=== PATIENT | male | born 1965 | race Caucasian/White ===

== ENCOUNTER 2019-02-24 11:11 | Inpatient (IN) ==
[2019-02-24] MEDS ORDERED: ACETAMINOPHEN 1,000 MG/100 ML VIAL IV STA (12:58)
[2019-02-24] MEDS ORDERED: SODIUM CHLORIDE 0.9% 1000ML 1,000 ML IV ONE (12:58)
[2019-02-24 14:01] LABS: Appearance Urine Turbid (Clear); Bacteria Urine Automated 3+ (Negative); Bilirubin Urine Negative (Negative); Blood Urine 3+ (Negative); Color Urine Yellow; Glucose Urine UA Negative (Negative); Ketones Urine Negative (Negative); Leukocyte Esterase Urine 2+ (Negative); Nitrite Urine Positive (Negative); Protein Urine 3+ (Negative); Urobilinogen Urine Negative (Negative); WBC Urine Automated >30 /hpf (0-5); pH Urine 5.5 (4.5-7.5)
[2019-02-24 14:10] LABS: Basophils # (auto) 0.03 K/uL (0-0.2); Basophils % (auto) 0.3 %; Eosinophils % (auto) 1.7 %; Hematocrit (blood only) 40.7 % (42-52); Hemoglobin 13.9 g/dL (14.0-18.0); Immature Granulocytes # (auto) 0.02 K/uL (0.00-0.02); Immature Granulocytes % (auto) 0.2 %; Lymphocytes # (auto) 0.81 K/uL (1.2-3.4); Lymphocytes % (auto) 6.9 %; Mean Corpuscular Hemoglobin 30.6 pg (25-34); Mean Corpuscular Hgb Conc 34.2 g/dL (32-36); Mean Corpuscular Volume 89.6 fL (80-100); Mean Platelet Volume 10.4 fL (7.4-10.4); Monocytes # (auto) 0.91 K/uL (0.11-0.59); Monocytes % (auto) 7.7 %; Neutrophils # (auto) 9.82 K/uL (1.4-6.5); Neutrophils % (auto) 83.2 %; Platelet Count 187 K/uL (130-400); RDW Coefficient of Variation 13.3 % (11.5-14.5); RDW Standard Deviation 42.9 fL (36.4-46.3); Red Blood Count 4.54 M/uL (4.7-6.1); White Blood Count 11.79 K/uL (4.8-10.8)
[2019-02-24 14:21] LABS: Partial Thromboplastin Ratio 1.1; Partial Thromboplastin Time 29.2 Seconds (21.0-31.0); Prothrombin Time 10.6 Seconds (9.0-12.0)
--- NOTE | 2019-02-24 14:24 | XRay Report ---
XR chest 1V portable CLINICAL HISTORY: Sepsis COMPARISON STUDY: No previous studies for comparison. FINDINGS: The cardiac and mediastinal contours are normal. There is no evidence of focal pulmonary co nsolidation. There is no evidence of failure. No pleural effusions are visualized.[ IMPRESSION: No active disease in the chest. Electronically signed by: Robert Nichols M.D. 02/24/2019 2:23 PM
[2019-02-24 14:25] LABS: Alanine Aminotransferase 15 U/L (12-78); Albumin Level 3.5 gm/dl (3.4-5.0); Aspartate Aminotransferase 10 U/L (15-37); BUN Creatinine Ratio 10.4 (10-20); Blood Urea Nitrogen 17 mg/dl (7-18); Carbon Dioxide 25 mmol/L (21-32); Chloride 103 mmol/L (98-107); Est GFR (African American) 55.8; Est GFR (Non-African American) 48.2; Glucose 100 mg/dl (70-99); Magnesium 1.9 mg/dl (1.8-2.4); Potassium 4.1 mmol/L (3.5-5.1); Sodium 136 mmol/L (136-145)
[2019-02-24 14:28] LABS: Albumin Globulin Ratio 0.9 (0.9-2); Alkaline Phosphatase 58 U/L (45-117); Bilirubin,Total 0.6 mg/dl (0.2-1); Globulin 3.9 gm/dl (2.5-4.0); Phosphorus 2.5 mg/dl (2.5-4.9); Total Protein 7.4 gm/dl (6.4-8.2)
[2019-02-24] MEDS ORDERED: VANCOMYCIN HCL 1,750 MG in SODIUM CHLORIDE 0.9% 500 ML IV ONE (14:40)
[2019-02-24] MEDS ORDERED: VANCOMYCIN CONSULT ACTIVE PRN (14:40)
[2019-02-24] MEDS ORDERED: CEFEPIME 2,000 MG/20 ML VIAL IV STA (14:43)
[2019-02-24] MEDS ORDERED: IOVERSOL 100ml IV PRN (15:01)
--- NOTE | 2019-02-24 15:16 | History & Physical Report ---
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 Yesterday took temperature and was 100.8F. In ER T: 38.3C, P: 106, R: 20, BP: 132/89, 99% on RA. WBC: 11.7, H/H: 13.9/40.7, BUN: 17, Cr: 1.59 (baseline Cr: 1.4-1.7), GFR: 48.2, Lactate: 1.4, UA: positive nitrite, 2+leuk esterase, >30WBC, 10-30 RBC, 3+bacteria Influenza swab negative CXR: No active disease in the chest. CT ABD/PELVIS: 1. Right nephroureterostomy tube in place. No right hydronephrosis. 2. Right urothelial thickening may be reactive to the presence of the stent. Correlate with urinalysis to ensure the absence of infection as the presence of perivesicular fat stranding raises concern for cystitis with upper tract involvement of infection. 3. Polypoid bladder wall thickening highly concerning for primary urothelial/bladder neoplasm. This does not appear to relate to median lobe hypertrophy of the prostate. 4. Multifocal sclerotic osseous lesions in the right hemipelvis are highly suspicious for osseous metastatic disease. 5. No lymphadenopathy or other sites of metastatic disease in abdomen or pelvis. 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 Pt states 4 days ago started feeling febrile with myalgias, chills, fatigue. Yesterday took temperature and was 100.8F. He states after procedure he had hematuria and dysuria passing urine through urethra. Hematuria slowed down and he started using nephroureteral catheter and since has passed intermittent urine through urethra and has dysuria and hematuria. Also reports right flank pain when urinates through urethra. Saw urology- Dr Kunz today and urine culture was obtained from nephroureteral stent. Pt was referred to ER for further evaluation and treatment. Pt also reports chronic nasal congestion however feels increased over past 4 days. Sli ght intermittent cough that is productive white. Denies SOB, CP, wheezing. Did not have flu vaccine this season. Reports co-worker had URI symptoms. Pt states since procedure on 02/07/19 he has had approx 8 episodes of loose stools. Had one loose stool yesterday and no BM yet today. Denies other abdominal pain, nausea or vomiting. Denies hematochezia, melena, BARTH, dizziness, syncope, vision changes, neck pain, CP, SOB, orthopnea, palpitations, sore throat, choking, otalgia, paresthesias, weakness, extremity weakness, extremity edema, rashes. Allergies Allergy/AdvReac Type Severity Reaction Status Date / Time sulfamethoxazole Allergy Intermediate Hives Unverified 02/24/19 12:04 [From Bactrim] trimethoprim [From Bactrim] Allergy Intermediate Hives Unverified 02/24/19 12:04 Penicillins AdvReac Severe passes out Unverified 02/24/19 12:04 Home Medications Home Medications Medication Instructions Recorded Confirmed Type albuterol sulfate 2 puff INHALATION QID PRN 02/24/19 02/24/19 History calcium carbonate-vitamin D3 1 tab PO QAM 02/24/19 02/24/19 History [Caltrate 600 plus D] denosumab [Xgeva] 120 mg SUBCUT Q3M 02/24/19 02/24/19 History ferrous gluconate 324 mg PO QAM 02/24/19 02/24/19 History fluticasone furoate-vilanterol 1 inh INHALATION DAILY 02/24/19 02/24/19 History [Breo Ellipta] leuprolide (3 month) [Lupron Depot 30 mg IM Q3M 02/24/19 02/24/19 History (3 month)] naproxen sodium [Aleve] 220 mg PO Q12H PRN 02/24/19 02/24/19 History tamsulosin 0.4 mg PO BID 02/24/19 02/24/19 History verapamil 180 mg PO HS 02/24/19 02/24/19 History Past Med/Surg History Medical History Asthma (Chronic) Chronic hepatitis C (Chronic) Dyslipidemia (Chronic) HTN (hypertension) (Chronic) 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 Portal hypertension (Chronic) Prostate cancer metastatic to bone (Chronic) Surgical History History of carpal tunnel surgery (Chronic) History of colonoscopy (Chronic) History of urostomy (Chronic) Family History Other Cancer Diabetes Social History Preferred Language: Khmer Communication Ability: Effective Communications Department Head Required: No Beliefs That Will Affect Care: None marital status: Single Current Living Situation: Alone Other Information That Helps Us Care for You: No Feels Safe at Home: Yes Safety Concerns: Feels Safe At This Time Smoking Status: Former smoker Hx Alcohol Use: Yes (Former alcoholic. Sober since 2008) Hx Substance Use: Yes (Former use cocaine, LSD, crystal meth. Clean since 1995) Review of Systems Review of Systems: All systems reviewed & are unremarkable except as noted in HPI & below Physical Exam Physical Exam: General: no acute distress, WDWN, non-toxic appearing at this time Head: normocephalic, atraumatic Eyes: PERRL, EOM's intact, conjunctiva non-injected, anicteric ENT: normal inspection external ears, nose, mucous membranes moist Neck: supple, trachea midline Lungs: clear, no respiratory distress, no wheezing/rhonchi/rales CV: RRR, no murmur, no pretibial edema Abd: normal BS, soft, Right CVA with nephroureteral tube draining yellow urine into bag; no CVA tenderness to percussion, right lower abdomen mild tenderness to palpation without rebound Ext: no cyanosis, no calf tenderness Neuro: A&O x 3, no focal deficits noted, normal affect Skin: warm, dry Results & Data Vital Signs (Past 12 Hours) Vital Signs Temp Pulse Pulse Resp BP BP Pulse Ox 02/24/19 14:00 86 23 119/79 94 02/24/19 13:59 85 24 130/71 93 02/24/19 13:30 92 H 17 156/83 H 97 02/24/19 13:26 84 23 146/79 H 02/24/19 13:15 91 H 22 98 02/24/19 13:00 80 20 96 02/24/19 12:58 96 02/24/19 12:45 82 16 141/88 H 95 02/24/19 12:30 84 21 151/89 H 97 02/24/19 12:15 82 21 147/111 H 97 02/24/19 12:05 37.8 C H 85 19 135/78 97 02/24/19 11:17 38.3 C H 106 H 20 132/89 99 Laboratory Results Short CBC 02/24/19 Range/Units 13:52 WBC 11.79 H (4.8-10.8) K/uL Hgb 13.9 L (14.0-18.0) g/dL Hct 40.7 L (42-52) % Plt Count 187 (130-400) K/uL BMP 02/24/19 13:52 Sodium 136 Potassium 4.1 Chloride 103 Carbon Dioxide 25 BUN 17 Creatinine 1.59 H Glucose 100 H Calcium 9.0 Liver Function 02/24/19 Range/Units 13:52 Total Bilirubin 0.6 (0.2-1) mg/dl AST 10 L (15-37) U/L ALT 15 (12-78) U/L Alkaline Phosphatase 58 (45-117) U/L Albumin 3.5 (3.4-5.0) gm/dl Urine 02/24/19 Range/Units 12:46 Urine Color Yellow Urine Appearance Turbid A (Clear) Urine pH 5.5 (4.5-7.5) Ur Specific [place] 1.020 (1.000-1.030) Urine Protein 3+ H (Negative) Urine Glucose (UA) Negative (Negative) Diagnostic Findings CXR: IMPRESSION: No active disease in the chest. CT ABD/PELVIS: IMPRESSION: 1. Right nephroureterostomy tube in place. No right hydronephrosis. 2. Right urothelial thickening may be reactive to the presence of the stent. Co rrelate with urinalysis to ensure the absence of infection as the presence of perivesicular fat stranding raises concern for cystitis with upper tract involvement of infection. 3. Polypoid bladder wall thickening highly concerning for primary urothelial/bladder neoplasm. This does not appear to relate to median lobe hypertrophy of the prostate. 4. Multifocal sclerotic osseous lesions in the right hemipelvis are highly suspicious for osseous metastatic disease. 5. No lymphadenopathy or other sites of metastatic disease in abdomen or pelvis. ECG Rate (beats per minute): 76 Rhythm: normal sinus Supervising Physician Co-Signing Physician Notes Attending Addendum: delayed entry date of service as note above care coordinated with NELLA Russell please refer to her notes for full details, I agree with her notes patient seen and examined, records reviewed by myself as well on exam, patient seen resting in bed, not in distress main symptom is fever, weakness nephrostomy output increased than usual no other symptoms VS noted and reviewed oriented x3 , not in distress, speaks in sentences with no effort nor accessory muscle use normal rate, regular rhythm, no murmurs clear breath sounds bilaterally non distended, soft, nontender nephrostomy site: no surrounding erythema, tenderness, warmth, discharge no bipedal edema, erythema, warmth no neuro deficits WBC 9.2 Hg [address] abdomen: 1. Right nephroureterostomy tube in place. No right hydronephrosis. 2. Right urothelial thickening may be reactive to the presence of the stent. Correlate with urinalysis to ensure the absence of infection as the presence of perivesicular fat stranding raises concern for cystitis with upper tract involvement of infection. 3. Polypoid bladder wall thickening highly concerning for primary urothelial/bladder neoplasm. This does not appear to relate to median lobe hypertrophy of the prostate. 4. Multifocal sclerotic osseous lesions in the right hemipelvis are highly suspicious for osseous metastatic disease. 5. No lymphadenopathy or other sites of metastatic disease in abdomen or pelvis. ASSESSMENT AND PLAN SEPSIS SECONDARY TO UTI METASTATIC PROSTATE CA S/P nephroureteral catheter placement - sepsis protocol - ff up urine culture from outpatient clinic 02/24/19, repeat urine culture and blood cultures done on admission day - cover with Vanco and Cefepime ID and Urology consult - baseline crea 1.7, now 1.59 monitor closely - discussed case with Dr. Kunz- Urologist HTN - continue Verapamil other diagnoses and plan of care as per NELLA Russell notes Rodolfo Michaels MD (1) UTI (urinary tract infection) Hematuria presence: with hematuria Urinary tract infection type: site unspecified Qualified Code(s): N39.0 - Urinary tract infection, site not specified; R31.9 - Hematuria, unspecified
--- NOTE | 2019-02-24 15:19 | CT Scan Report ---
CT abd pelvis IV con only CLINICAL HISTORY: 53 years-old Male presenting with abd pain, fever, prostate ca. TECHNIQUE: Multidetector CT of the abdomen and pelvis was performed after the administration of intra venous contrast. IV contrast: 93 mL of Optiray 320. One or more dose lowering techniques were used co nsistent with the principles of ALARA (as low as reasonably achievable), including automatic exposure control, mA or kV adjustment to individual patient size, and/or use of iterative reconstruction. COMPARISON: None. CT DOSE (mGy.cm): The estimated cumulative dose is 825.02 mGycm. FINDINGS: Director Of Collections topogram: Pigtail catheter projects over the right abdomen. Lung bases: Normal heart size. No pericardial or pleural effusion. Minimal dependent changes likely a telectasis. Liver: Normal morphology. No liver lesion. Patent hepatic vasculature. Biliary: No intrahepatic or extrahepatic biliary ductal dilatation. Normal gallbladder. Pancreas: Normal. Spleen: Normal. Splenule noted. Adrenal glands: Normal. Kidneys and ureters: Few renal cysts bilaterally. A nephroureterostomy tube is in place. There is mil d delayed perfusion of the right kidney. There also may be mild atrophy of the right kidney. No right hydronephrosis. Urothelial thickening on the right is likely reactive due to the presence of the wesley nt. No urothelial thickening is evident on the left there is no left hydronephrosis. Bladder: Polypoid bladder wall thickening along the posterior bladder neck. Circumferential bladder w all thickening is also present with trace. Vesicular fat infiltration. The urinary bladder is decompr essed. Pelvic organs: Prostate and seminal vesicles normal. Bowel: Normal appendix. No bowel obstruction. Peritoneal cavity: No free fluid or intraperitoneal gas. Lymph nodes: No enlarged lymph nodes in the abdomen or pelvis. Vasculature: Atherosclerosis of the normal caliber abdominal aorta. IVC patent. Abdominal wall: Bilateral fat-containing inguinal hernias. Musculoskeletal: Multifocal sclerotic osseous lesions in the right hemipelvis. No additional lesions are detected. Bilateral pars defects of L5 without significant anterolisthesis. IMPRESSION: 1. Right nephroureterostomy tube in place. No right hydronephrosis. 2. Right urothelial thickening may be reactive to the presence of the stent. Correlate with urinalys is to ensure the absence of infection as the presence of perivesicular fat stranding raises concern f or cystitis with upper tract involvement of infection. 3. Polypoid bladder wall thickening highly concerning for primary urothelial/bladder neoplasm. This does not appear to relate to median lobe hypertrophy of the prostate. 4. Multifocal sclerotic osseous lesions in the right hemipelvis are highly suspicious for osseous me tastatic disease. 5. No lymphadenopathy or other sites of metastatic disease in abdomen or pelvis. Electronically signed by: Jake Hoff M.D. 02/24/2019 3:17 PM
[2019-02-24 16:51] LABS: Influenza A virus by PCR Neg for Influ A (Neg); Influenza B virus by PCR Neg for Influ B (Neg)
[2019-02-24] MEDS ORDERED: ALBUTEROL HFA 8 GM INHALER INH PRN (18:12)
[2019-02-24] MEDS ORDERED: ONDANSETRON INJ 2 MG/ML 2 ML VIAL IV PRN (18:12)
[2019-02-24] MEDS ORDERED: CONSULT PHARMACY PRN (18:23)
[2019-02-24] MEDS ORDERED: DAPTOMYCIN CONSULT ACTIVE PRN (18:24)
[2019-02-24] MEDS: SODIUM CHLORIDE 0.9% 1000ML 1,000 ML IV SCH (18:28)
[2019-02-24] MEDS: ACETAMINOPHEN 325 MG TAB PO PRN (19:38)
[2019-02-24] MEDS: VERAPAMIL HCL 180 MG TABCR PO SCH (19:40)
[2019-02-24] MEDS: TAMSULOSIN HCL 0.4 MG CAP PO SCH (19:40)
[2019-02-24] MEDS: DAPTOmycin 300 MG in SYRINGE 0 ML IV SCH (19:43)
[2019-02-25] MEDS: CEFEPIME 2,000 MG in SYRINGE 7.5 ML IV SCH ×2 (01:37→13:41)
--- NOTE | 2019-02-25 01:57 | Emergency Department Note ---
Entered by Cesia Boyer acting as a scribe for Lauri Lee MD History of Present Illness General Chief complaint: Flank Pain Stated complaint: KINDEY INFECTION REFERRED BY DOCTOR Time Seen by Provider: 02/24/19 12:58 Source: patient History of Present Illness Onset (ago): day(s) 4 Location: right (flank) Pain Consistency: + other (worsening) Maximum Pain Intensity: 8 Quality: + other (kidney infection) Associated symptoms: + cough, + fever/chills (fever) and + other (body aches, hematuria) The patient is a 53 year old male who presents to the Emergency Room with complaints of worsening right flank pain starting 4 days ago. The patient states that he has prostate cancer. He reports that he is not currently getting chemo, but had been. He reports that over the last few days he has had a fever, right flank pain, and body aches. He notes that along with it, he had two days of hematuria, but none today. He states that he went to his urologist, Dr. Kunz, today and they sent her to the ED for concern of an infection in his kidney. The patient notes that he does have a urostomy. The patient complains of a slight cough. Home Medications Home Medications Medication Instructions Recorded Confirmed Type albuterol sulfate 2 puff INHALATION QID PRN 02/24/19 02/24/19 History calcium carbonate-vitamin D3 1 tab PO QAM 02/24/19 02/24/19 History [Caltrate 600 plus D] denosumab [Xgeva] 120 mg SUBCUT Q3M 02/24/19 02/24/19 History ferrous gluconate 324 mg PO QAM 02/24/19 02/24/19 History fluticasone furoate-vilanterol 1 inh INHALATION DAILY 02/24/19 02/24/19 History [Breo Ellipta] leuprolide (3 month) [Lupron Depot 30 mg IM Q3M 02/24/19 02/24/19 History (3 month)] naproxen sodium [Aleve] 220 mg PO Q12H PRN 02/24/19 02/24/19 History tamsulosin 0.4 mg PO BID 02/24/19 02/24/19 History verapamil 180 mg PO HS 02/24/19 02/24/19 History Allergies Allergy/AdvReac Type Severity Reaction Status Date / Time Penicillins Allergy Severe passes Verified 02/26/19 15:19 out, hives sulfamethoxazole Allergy Intermediate Hives Unverified 02/24/19 12:04 [From Bactrim] trimethoprim [From Bactrim] Allergy Intermediate Hives Unverified 02/24/19 12:04 aminophylline Allergy PASSES Verified 02/26/19 15:20 OUT, HIVES Past Med/Surg History Medical History Asthma (Chronic) Chronic hepatitis C (Chronic) Dyslipidemia (Chronic) HTN (hypertension) (Chronic) 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 Portal hypertension (Chronic) Prostate cancer metastatic to bone (Chronic) Surgical History History of carpal tunnel surgery (Chronic) History of colonoscopy (Chronic) History of urostomy (Chronic) Family History Other Cancer Diabetes Social History Preferred Language: Kyrgyz Communication Ability: Effective Cut Off Machine Operator Required: No Beliefs That Will Affect Care: None marital status: Single Current Living Situation: Alone Other Information That Helps Us Care for You: No Feels Safe at Home: Yes Safety Concerns: Feels Safe At This Time Smoking Status: Former smoker Hx Alcohol Use: Yes (Former alcoholic. Sober since 2008) Hx Substance Use: Yes (Former use cocaine, LSD, crystal meth. Clean since 1995) Review of Systems See HPI for pertinent positives & negatives. and A total of 10 systems reviewed and were otherwise negative Physical Exam Vital Signs Vital Signs - 24 hr 02/24/19 11:17 02/24/19 12:05 02/24/19 12:15 Temperature 38.3 C H 37.8 C H Temperature Source Oral Oral Sepsis Recent Fever Within 48 Hours No Sepsis Action Taken by Nursing No Action Required Pulse Rate 106 H 82 Pulse Rate [Apical] 85 Pulse Rate from SpO2 Sensor 82 Pulse Rhythm [Apical] Regular Pulse Strength [Apical] Normal Respiratory Rate 20 19 21 Respiratory Effort / Characteristics Non-Labored Non-Labored Spontaneous Respiratory Depth Normal Normal Respiratory Pattern Regular Blood Pressure 132/89 147/111 H Blood Pressure [Right Arm] 135/78 Blood Pressure Mean 103 123 Blood Pressure Mean [Right Arm] 97 Blood Pressure Position [Right Arm] Lying Pulse Oximetry 99 97 97 Oxygen Delivery Method Room Air Room Air 02/24/19 12:30 02/24/19 12:45 02/24/19 12:58 Temperature Temperature Source Sepsis Recent Fever Within 48 Hours Sepsis Action Taken by Nursing Pulse Rate 84 82 Pulse Rate [Apical] Pulse Rate from SpO2 Sensor 84 82 Pulse Rhythm [Apical] Pulse Strength [Apical] Respiratory Rate 21 16 Respiratory Effort / Characteristics Respiratory Depth Respiratory Pattern Blood Pressure 151/89 H 141/88 H Blood Pressure [Right Arm] Blood Pressure Mean 109 105 Blood Pressure Mean [Right Arm] Blood Pressure Position [Right Arm] Pulse Oximetry 97 95 96 Oxygen Delivery Method Room Air 02/24/19 13:00 02/24/19 13:15 02/24/19 13:26 Temperature Temperature Source Sepsis Recent Fever Within 48 Hours Sepsis Action Taken by Nursing Pulse Rate 80 91 H 84 Pulse Rate [Apical] Pulse Rate from SpO2 Sensor 80 87 85 Pulse Rhythm [Apical] Pulse Strength [Apical] Respiratory Rate 20 22 23 Respiratory Effort / Characteristics Respiratory Depth Respiratory Pattern Blood Pressure 146/79 H Blood Pressure [Right Arm] Blood Pressure Mean 101 Blood Pressure Mean [Right Arm] Blood Pressure Position [Right Arm] Pulse Oximetry 96 98 Oxygen Delivery Method 02/24/19 13:30 02/24/19 13:59 02/24/19 14:00 Temperature Temperature Source Sepsis Recent Fever Within 48 Hours Sepsis Action Taken by Nursing Pulse Rate 92 H 85 86 Pulse Rate [Apical] Pulse Rate from SpO2 Sensor 91 H 86 86 Pulse Rhythm [Apical] Pulse Strength [Apical] Respiratory Rate 17 24 23 Respiratory Effort / Characteristics Respiratory Depth Respiratory Pattern Blood Pressure 156/83 H 130/71 119/79 Blood Pressure [Right Arm] Blood Pressure Mean 107 90 92 Blood Pressure Mean [Right Arm] Blood Pressure Position [Right Arm] Pulse Oximetry 97 93 94 Oxygen Delivery Method 02/24/19 14:15 02/24/19 14:30 02/24/19 14:45 Temperature Temperature Source Sepsis Recent Fever Within 48 Hours Sepsis Action Taken by Nursing Pulse Rate 85 81 75 Pulse Rate [Apical] Pulse Rate from SpO2 Sensor 85 81 75 Pulse Rhythm [Apical] Pulse Strength [Apical] Respiratory Rate 19 21 18 Respiratory Effort / Characteristics Respiratory Depth Respiratory Pattern Blood Pressure 109/75 110/73 125/66 Blood Pressure [Right Arm] Blood Pressure Mean 86 85 85 Blood Pressure Mean [Right Arm] Blood Pressure Position [Right Arm] Pulse Oximetry 94 93 94 Oxygen Delivery Method 02/24/19 15:35 02/24/19 15:45 Temperature Temperature Source Sepsis Recent Fever Within 48 Hours Sepsis Action Taken by Nursing Pulse Rate 68 73 Pulse Rate [Apical] Pulse Rate from SpO2 Sensor 68 72 Pulse Rhythm [Apical] Pulse Strength [Apical] Respiratory Rate 18 16 Respiratory Effort / Characteristics Respiratory Depth Respiratory Pattern Blood Pressure 133/68 114/70 Blood Pressure [Right Arm] Blood Pressure Mean 89 84 Blood Pressure Mean [Right Arm] Blood Pressure Position [Right Arm] Pulse Oximetry 94 96 Oxygen Delivery Method GENERAL: Awake, alert, fatigued appearing, in no distress HENT: Normocephalic, atraumatic. Oropharynx with dry mucous membranes and otherwise unremarkable. EYES: Normal conjunctiva. Sclera non-icteric. NECK: Supple. No nuchal rigidity. FROM. No JVD. RESPIRATORY: Clear to auscultation bilaterally. CARDIAC: Tachycardic rate, normal rhythm. Extremities warm and well perfused. Pulses equal. ABDOMEN: Soft, non-distended. Right lower abdomen urostomy site that is clean, dry, and intact. Turbid urine appreciated within the bag. No tenderness to palpation. No rebound or guarding. No masses. RECTAL: Deferred. MUSCULOSKELETAL: Chest examination reveals no tenderness. The back is s ymmetrical on inspection without obvious abnormality. There is no CVA tenderness to palpation. No joint edema. LOWER EXTREMITIES: Calves are equal size bilaterally and non-tender. No edema. No discoloration. NEURO: Normal sensorium. No sensory or motor deficits noted. SKIN: No rash or jaundice noted. Course 1351: The patient was evaluated in room C7. A complete history and physical exam was performed. 1448: I discussed the patient's case [facility] She will evaluate the patient for further management. 1452: I reevaluated the patient and updated him on his test results. I discussed the treatment plan with him. He verbally agrees and understands. Administered Medications Acetaminophen (Tylenol) 650 mg PO Q4H PRN PRN Reason: Pain or Fever Stop: 03/26/19 18:11 Last Admin: 02/26/19 15:24 Dose: 650 mg Documented by: [id number] Cosigned by: [id number] Admin: 02/25/19 17:13 Dose: 650 mg Documented by: [id number] Admin: 02/25/19 12:12 Dose: 650 mg Documented by: [id number] Admin: 02/24/19 19:38 Dose: 650 mg Documented by: [id number] Ferrous Gluconate (Ferrous Gluconate) 324 mg PO QAM [facility] Stop: 03/27/19 08:59 Last Admin: 02/26/19 08:14 Dose: 324 mg Documented by: [id number] Admin: 02/25/19 09:02 Dose: 324 mg Documented by: [id number] Sodium Chloride (Nss 1000ml) 1,000 mls @ 80 mls/hr IV .[id number] [facility] Stop: 03/28/19 13:29 Last Admin: 02/26/19 13:33 Dose: 80 mls/hr Documented by: [id number] Cefazolin Sodium (Ancef 2000mg) 2,000 mg in 15 mls @ 3.75 mls/min IV Q8H [facility] Stop: 03/08/19 15:59 Last Admin: 02/26/19 23:54 Dose: 3.75 mls/min Documented by: [id number] Admin: 02/26/19 16:24 Dose: 3.75 mls/min Documented by: [id number] Lactobacillus Acidophilus (Floranex) 4 tab PO QIDM [facility] Stop: 03/27/19 11:59 Last Admin: 02/26/19 20:02 Dose: 4 tab Documented by: [id number] Admin: 02/26/19 16:25 Dose: 4 tab Documented by: [id number] Admin: 02/26/19 12:15 Dose: 4 tab Documented by: [id number] Admin: 02/26/19 08:14 Dose: 4 tab Documented by: [id number] Admin: 02/25/19 20:19 Dose: 4 tab Documented by: [id number] Admin: 02/25/19 17:13 Dose: 4 tab Documented by: [id number] Admin: 02/25/19 13:11 Dose: 4 tab Documented by: [id number] Multivitamins/Minerals (Caltrate Plus) 1 tab PO QAM [facility] Stop: 03/27/19 08:59 Last Admin: 02/26/19 08:14 Dose: 1 tab Documented by: [id number] Admin: 02/25/19 09:02 Dose: 1 tab Documented by: [id number] Fluticasone/Salmeterol (Advair Diskus 500/50) 1 puffs INH BID [facility] Stop: 03/27/19 20:59 Last Admin: 02/26/19 20:02 Dose: Not Given Documented by: [id number] Admin: 02/26/19 08:14 Dose: Not Given Documented by: [id number] Admin: 02/25/19 20:19 Dose: Not Given Documented by: [id number] Tamsulosin HCl (Flomax) 0.4 mg PO BID [facility] Stop: 03/26/19 20:59 Last Admin: 02/26/19 20:01 Dose: 0.4 mg Documented by: [id number] Admin: 02/26/19 08:13 Dose: 0.4 mg Documented by: [id number] Admin: 02/25/19 20:20 Dose: 0.4 mg Documented by: [id number] Admin: 02/25/19 09:53 Dose: 0.4 mg Documented by: [id number] Admin: 02/24/19 19:40 Dose: 0.4 mg Documented by: [id number] Tramadol HCl (Ultram) 50 mg PO Q6H PRN PRN Reason: Pain Stop: 03/27/19 14:38 Last Admin: 02/26/19 20:00 Dose: 50 mg Documented by: [id number] Admin: 02/26/19 13:36 Dose: 25 mg Documented by: [id number] Verapamil HCl (Calan Sr) 180 mg PO HS [facility] Stop: 03/26/19 20:59 Last Admin: 02/26/19 20:01 Dose: 180 mg Documented by: [id number] Admin: 02/25/19 20:20 Dose: 180 mg Documented by: [id number] Admin: 02/24/19 19:40 Dose: 180 mg Documented by: [id number] Discontinued Medications Sodium Chloride (Nss 1000ml) 1,000 mls @ 999 mls/hr IV .Q1H1M ONE Stop: 02/24/19 13:58 Last Infusion: 02/24/19 14:30 Dose: 0 mls/hr Documented by: [id number] Admin: 02/24/19 13:29 Dose: 999 mls/hr Documented by: [id number] Acetaminophen (Ofirmev) 1,000 mg in 100 mls @ 400 mls/hr IV NOW STA Stop: 02/24/19 13:12 Last Infusion: 02/24/19 13:44 Dose: 0 mls/hr Documented by: [id number] Admin: 02/24/19 13:29 Dose: 400 mls/hr Documented by: [id number] Cefepime HCl (Maxipime) 2,000 mg in 20 mls @ 5 mls/min IV NOW STA; Protocol Stop: 02/24/19 14:46 Last Admin: 02/24/19 15:32 Dose: 5 mls/min Documented by: [id number] Vancomycin HCl 1,750 mg/ (Sodium Chloride) 535 mls @ 200 mls/hr IV NOW ONE Stop: 02/24/19 17:20 Last Infusion: 02/24/19 18:41 Dose: 0 mls/hr Documented by: [id number] Admin: 02/24/19 15:37 Dose: 200 mls/hr Documented by: [id number] Sodium Chloride (Nss 1000ml) 1,000 mls @ 125 mls/hr IV .Q8H [facility] Stop: 03/26/19 18:29 Last Infusion: 02/26/19 15:15 Dose: 0 mls/hr Documented by: [id number] Admin: 02/26/19 12:15 Dose: 125 mls/hr Documented by: [id number] Infusion: 02/26/19 11:56 Dose: 0 mls/hr Documented by: [id number] Admin: 02/26/19 02:35 Dose: 125 mls/hr Documented by: [id number] Infusion: 02/26/19 02:35 Dose: 125 mls/hr Documented by: [id number] Admin: 02/25/19 18:54 Dose: 125 mls/hr Documented by: [id number] Infusion: 02/25/19 18:54 Dose: 125 mls/hr Documented by: [id number] Admin: 02/25/19 11:00 Dose: 125 mls/hr Documented by: [id number] Infusion: 02/25/19 11:00 Dose: 125 mls/hr Documented by: [id number] Admin: 02/25/19 04:59 Dose: 125 mls/hr Documented by: [id number] Infusion: 02/25/19 04:58 Dose: 0 mls/hr Documented by: [id number] Admin: 02/24/19 18:28 Dose: 125 mls/hr Documented by: [id number] Daptomycin 300 mg/ Syringe 6 mls @ 3 mls/min IV Q24H [facility]; Protocol Stop: 03/06/19 19:59 Last Admin: 02/25/19 20:18 Dose: 3 mls/min Documented by: [id number] Admin: 02/24/19 19:43 Dose: 3 mls/min Documented by: [id number] Cefepime HCl 2,000 mg/ Syringe 20 mls @ 5 mls/min IV Q12H [facility]; Protocol Stop: 03/07/19 01:59 Last Admin: 02/26/19 13:40 Dose: 5 mls/min Documented by: [id number] Admin: 02/26/19 02:31 Dose: 5 mls/min Documented by: [id number] Admin: 02/25/19 13:41 Dose: 5 mls/min Documented by: [id number] Admin: 02/25/19 01:37 Dose: 5 mls/min Documented by: [id number] Ioversol (Optiray 320 100ml) 93 ml IV ONCE PRN PRN Reason: Interaction Checking Stop: 02/28/19 15:00 Last Admin: 02/24/19 15:01 Dose: 93 ml Documented by: [id number] Miscellaneous (Order Awaiting Action) 1 ea N/A QS [facility] Stop: 03/27/19 00:00 Last Admin: 02/25/19 09:01 Dose: Not Given Documented by: [id number] Admin: 02/25/19 00:03 Dose: Not Given Documented by: [id number] Tramadol HCl (Ultram) 25 mg PO Q4H PRN PRN Reason: Pain Stop: 03/27/19 14:38 Last Admin: 02/26/19 06:11 Dose: 25 mg Documented by: [id number] Admin: 02/25/19 23:59 Dose: 25 mg Documented by: [id number] Admin: 02/25/19 18:54 Dose: 25 mg Documented by: [id number] Admin: 02/25/19 14:49 Dose: 25 mg Documented by: [id number] Impression & Plan UTI (urinary tract infection), Fever, Leukocytosis, Acute renal insufficiency Discharge Plan Visit Data *Final* Discharge Date/Time: 02/24/19 17:18 Chief Complaint: Flank Pain Stated Complaint: KINDEY INFECTION REFERRED BY DOCTOR ED Provider: Lauri Lee Discharge Problem: UTI (urinary tract infection), Fever, Leukocytosis, Acute renal insufficiency Patient Disposition: Admitted As Inpatient Discharge Instructions Interventions: ED Discharge Assessment Last Done: 02/24/19 17:18 Medical Decision Making Differential Diagnosis Differential diagnosis: Etiologies such as shingles, pyelonephritis/UTI, renal colic, appendicitis, diverticulitis, mesenteric ischemia, torsion, aortic pathology, infections, inflammatory bowel disease, bowel obstruction, PUD, biliary pathology, as well as others were entertained. Medical Records Attestation: I reviewed the patient's medical records. Home Medications Current Medication List: was personally reviewed by me Laboratory Data Attestation: I reviewed the patient's lab results. Result diagrams: 02/26/19 06:37 02/26/19 06:37 Lab Results 02/24/19 02/24/19 02/24/19 Range/Units 12:46 13:51 13:52 WBC 11.79 H (4.8-10.8) K/uL RBC 4.54 L (4.7-6.1) M/uL Hgb 13.9 L (14.0-18.0) g/dL Hct 40.7 L (42-52) % MCV 89.6 (80-100) fL MCH 30.6 (25-34) pg MCHC 34.2 (32-36) g/dL RDW Std Deviation 42.9 (36.4-46.3) fL RDW Coeff of Shanita 13.3 (11.5-14.5) % Plt Count 187 (130-400) K/uL MPV 10.4 (7.4-10.4) fL Immature Gran % (Auto) 0.2 % Neut % (Auto) 83.2 % Lymph % (Auto) 6.9 % [place] % (Auto) 7.7 % Eos % (Auto) 1.7 % Baso % (Auto) 0.3 % Immature Gran # (Auto) 0.02 (0.00-0.02) K/uL Neut # (Auto) 9.82 H (1.4-6.5) K/uL Lymph # (Auto) 0.81 L (1.2-3.4) K/uL [place] # (Auto) 0.91 H (0.11-0.59) K/uL Eos # (Auto) 0.20 (0-0.5) K/uL Baso # (Auto) 0.03 (0-0.2) K/uL PT (9.0-12.0) Seconds INR (0.9-1.1) APTT (21.0-31.0) Seconds PTT Ratio Sodium (136-145) mmol/L Potassium (3.5-5.1) mmol/L Chloride (98-107) mmol/L Carbon Dioxide (21-32) mmol/L Anion Gap (3-11) BUN (7-18) mg/dl Creatinine (0.6-1.4) mg/dl Est Cr Clr Drug Dosing Est GFR ( Amer) Est GFR (Non-Af Amer) BUN/Creatinine Ratio (10-20) Glucose (70-99) mg/dl Lactate 1.4 (0.4-2.0) mmol/L Calcium (8.5-10.1) mg/dl Phosphorus (2.5-4.9) mg/dl Magnesium (1.8-2.4) mg/dl Total Bilirubin (0.2-1) mg/dl AST (15-37) U/L ALT (12-78) U/L Alkaline Phosphatase (45-117) U/L Total Protein (6.4-8.2) gm/dl Albumin (3.4-5.0) gm/dl Globulin (2.5-4.0) gm/dl Albumin/Globulin Ratio (0.9-2) Urine Color Yellow Urine Appearance Turbid A (Clear) Urine pH 5.5 (4.5-7.5) Ur Specific [place] 1.020 (1.000-1.030) Urine Protein 3+ H (Negative) Urine Glucose (UA) Negative (Negative) Urine Ketones Negative (Negative) Urine Blood 3+ H (Negative) Urine Nitrite Positive A (Negative) Urine Bilirubin Negative (Negative) Urine Urobilinogen Negative (Negative) Ur Leukocyte Esterase 2+ H (Negative) Urine WBC (Auto) >30 H (0-5) /hpf Urine RBC (Auto) 10-30 H (0-4) /hpf U Hyaline Cast (Auto) 1-5 (0-5) /lpf U Epithel Cells (Auto) 5-10 H (0-5) /lpf Urine Bacteria (Auto) 3+ H (Negative) Urine Yeast Not Reportable 02/24/19 02/24/19 Range/Units 13:52 13:52 WBC (4.8-10.8) K/uL RBC (4.7-6.1) M/uL Hgb (14.0-18.0) g/dL Hct (42-52) % MCV (80-100) fL MCH (25-34) pg MCHC (32-36) g/dL RDW Std Deviation (36.4-46.3) fL RDW Coeff of Shanita (11.5-14.5) % Plt Count (130-400) K/uL MPV (7.4-10.4) fL Immature Gran % (Auto) % Neut % (Auto) % Lymph % (Auto) % [place] % (Auto) % Eos % (Auto) % Baso % (Auto) % Immature Gran # (Auto) (0.00-0.02) K/uL Neut # (Auto) (1.4-6.5) K/uL Lymph # (Auto) (1.2-3.4) K/uL [place] # (Auto) (0.11-0.59) K/uL Eos # (Auto) (0-0.5) K/uL Baso # (Auto) (0-0.2) K/uL PT 10.6 (9.0-12.0) Seconds INR 1.0 (0.9-1.1) APTT 29.2 (21.0-31.0) Seconds PTT Ratio 1.1 Sodium 136 (136-145) mmol/L Potassium 4.1 (3.5-5.1) mmol/L Chloride 103 (98-107) mmol/L Carbon Dioxide 25 (21-32) mmol/L Anion Gap 8.0 (3-11) BUN 17 (7-18) mg/dl Creatinine 1.59 H (0.6-1.4) mg/dl Est Cr Clr Drug Dosing Not Reportable Est GFR ( Amer) 55.8 Est GFR (Non-Af Amer) 48.2 BUN/Creatinine Ratio 10.4 (10-20) Glucose 100 H (70-99) mg/dl Lactate (0.4-2.0) mmol/L Calcium 9.0 (8.5-10.1) mg/dl Phosphorus 2.5 (2.5-4.9) mg/dl Magnesium 1.9 (1.8-2.4) mg/dl Total Bilirubin 0.6 (0.2-1) mg/dl AST 10 L (15-37) U/L ALT 15 (12-78) U/L Alkaline Phosphatase 58 (45-117) U/L Total Protein 7.4 (6.4-8.2) gm/dl Albumin 3.5 (3.4-5.0) gm/dl Globulin 3.9 (2.5-4.0) gm/dl Albumin/Globulin Ratio 0.9 (0.9-2) Urine Color Urine Appearance (Clear) Urine pH (4.5-7.5) Ur Specific [place] (1.000-1.030) Urine Protein (Negative) Urine Glucose (UA) (Negative) Urine Ketones (Negative) Urine Blood (Negative) Urine Nitrite (Negative) Urine Bilirubin (Negative) Urine Urobilinogen (Negative) Ur Leukocyte Esterase (Negative) Urine WBC (Auto) (0-5) /hpf Urine RBC (Auto) (0-4) /hpf U Hyaline Cast (Auto) (0-5) /lpf U Epithel Cells (Auto) (0-5) /lpf Urine Bacteria (Auto) (Negative) Urine Yeast Imaging Data Radiologist's Impression: Radiology results as stated below per my review and the radiologist's interpretation: XR chest 1V portable CLINICAL HISTORY: Sepsis COMPARISON STUDY: No previous studies for comparison. FINDINGS: The cardiac and mediastinal contours are normal. There is no evidence of focal pulmonary consolidation. There is no evidence of failure. No pleural effusions are visualized.[ IMPRESSION: No active disease in the chest. Electronically signed by: Robert Nichols M.D. 02/24/2019 2:[address] abd pelvis IV con only CLINICAL HISTORY: 53 years-old Male presenting with abd pain, fever, prostate ca. TECHNIQUE: Multidetector CT of the abdomen and pelvis was performed after the administration of intravenous contrast. IV contrast: 93 mL of Optiray 320. One or more dose lowering techniques were used consistent with the principles of ALARA (as low as reasonably achievable), including automatic exposure control, mA or kV adjustment to individual patient size, and/or use of iterative reconstruction. COMPARISON: None. CT DOSE (mGy.cm): The estimated cumulative dose is 825.02 mGycm. FINDINGS: Email Producer topogram: Pigtail catheter projects over the right abdomen. Lung bases: Normal heart size. No pericardial or pleural effusion. Minimal dependent changes likely atelectasis. Liver: Normal morphology. No liver lesion. Patent hepatic vasculature. Biliary: No intrahepatic or extrahepatic biliary ductal dilatation. Normal ga llbladder. Pancreas: Normal. Spleen: Normal. Splenule noted. Adrenal glands: Normal. Kidneys and ureters: Few renal cysts bilaterally. A nephroureterostomy tube is in place. There is mild delayed perfusion of the right kidney. There also may be mild atrophy of the right kidney. No right hydronephrosis. Urothelial thickening on the right is likely reactive due to the presence of the stent. No urothelial thickening is evident on the left there is no left hydronephrosis. Bladder: Polypoid bladder wall thickening along the posterior bladder neck. Circumferential bladder wall thickening is also present with trace. Vesicular fat infiltration. The urinary bladder is decompressed. Pelvic organs: Prostate and seminal vesicles normal. Bowel: Normal appendix. No bowel obstruction. Peritoneal cavity: No free fluid or intraperitoneal gas. Lymph nodes: No enlarged lymph nodes in the abdomen or pelvis. Vasculature: Atherosclerosis of the normal caliber abdominal aorta. IVC patent. Abdominal wall: Bilateral fat-containing inguinal hernias. Musculoskeletal: Multifocal sclerotic osseous lesions in the right hemipelvis. No additional lesions are detected. Bilateral pars defects of L5 without significant anterolisthesis. IMPRESSION: 1. Right nephroureterostomy tube in place. No right hydronephrosis. 2. Right urothelial thickening may be reactive to the presence of the stent. Correlate with urinalysis to ensure the absence of infection as the presence of perivesicular fat stranding raises concern for cystitis with upper tract involvement of infection. 3. Polypoid bladder wall thickening highly concerning for primary urothelial/bladder neoplasm. This does not appear to relate to median lobe hypertrophy of the prostate. 4. Multifocal sclerotic osseous lesions in the right hemipelvis are highly suspicious for osseous metastatic disease. 5. No lymphadenopathy or other sites of metastatic disease in abdomen or pelvis. Electronically signed by: Jake Hoff M.D. 02/24/2019 3:17 PM ECG Data Attestation: I personally reviewed and interpreted this ECG as follows: Indication: + abdominal pain Rate (beats per minute): 76 Rhythm: + normal sinus ECG [place]: + Normal ECG ST segments: no ST depression and no ST elevation Blood Pressure Blood Pressure Findings: Elevated blood pressure Blood Pressure Disposition: further management by hospitalist FABIO Elizabeth The patient is a pleasant 53-year-old gentleman with a past medical history of prostate cancer status post right-sided urostomy who presents emergency department after being referred by his urologist, Dr. Kunz for concern for infection per HPI. On arrival the patient is fatigued appearing but no acute distress, febrile to 38.3 with HR 100s and otherwise stable vital signs. The patient appears clinically dry. The patient's right abdominal urostomy site is clean dry and intact. There is cloudy urine observed in his urostomy bag. UA is suggestive of infection with positive nitrites, WBCs and bacteria. WBC 11.7, nonspecfiic. H/H 13.9/40 without recent prior for comparison. Platelets wnl. Cr. 1.59 without recent prior value for comparison. Chemistry without acidosis. Lactate wnl. Electrolytes and LFTs unremarkable.CT abd pelvis was performed and demonstrates findings suspicious for infection. Blood cultures drawn. Ordered for Cefepime and Vancomycin.Case was discussed with Guille Hamilton PA-C, who evaluate the patient for admission. Discharge Problem: UTI (urinary tract infection) Qualifiers: Urinary tract infection type: site unspecified Hematuria presence: with hematuria Qualified Code(s): N39.0 - Urinary tract infection, site not specified Fever Qualifiers: Fever type: unspecified Qualified Code(s): R50.9 - Fever, unspecified Leukocytosis Qualifiers: Leukocytosis type: unspecified Qualified Code(s): D72.829 - Elevated white blood cell count, unspecified The scribe's documentation has been prepared under my direction and personally reviewed by me in its entirety. I confirm that the note above accurately reflects all work, treatment, procedures, and medical decision making performed by me.
[2019-02-25] MEDS: SODIUM CHLORIDE 0.9% 1000ML 1,000 ML IV SCH ×3 (04:59→18:54)
[2019-02-25 06:35] LABS: Basophils # (auto) 0.02 K/uL (0-0.2); Basophils % (auto) 0.2 %; Eosinophils # (auto) 0.31 K/uL (0-0.5); Eosinophils % (auto) 3.3 %; Hematocrit (blood only) 39.6 % (42-52); Hemoglobin 13.6 g/dL (14.0-18.0); Immature Granulocytes # (auto) 0.02 K/uL (0.00-0.02); Immature Granulocytes % (auto) 0.2 %; Lymphocytes # (auto) 0.79 K/uL (1.2-3.4); Lymphocytes % (auto) 8.5 %; Mean Corpuscular Hemoglobin 30.7 pg (25-34); Mean Corpuscular Hgb Conc 34.3 g/dL (32-36); Mean Corpuscular Volume 89.4 fL (80-100); Mean Platelet Volume 10.5 fL (7.4-10.4); Monocytes # (auto) 0.98 K/uL (0.11-0.59); Monocytes % (auto) 10.6 %; Neutrophils # (auto) 7.14 K/uL (1.4-6.5); Neutrophils % (auto) 77.2 %; Platelet Count 182 K/uL (130-400); RDW Coefficient of Variation 13.3 % (11.5-14.5); RDW Standard Deviation 43.4 fL (36.4-46.3); Red Blood Count 4.43 M/uL (4.7-6.1); White Blood Count 9.26 K/uL (4.8-10.8)
[2019-02-25 07:17] LABS: BUN Creatinine Ratio 11.8 (10-20); Calcium 8.1 mg/dl (8.5-10.1); Creatinine Clr Calc Pharmacy 58.1 ml/min; Est GFR (African American) 57.1; Est GFR (Non-African American) 49.3; Potassium 3.8 mmol/L (3.5-5.1)
--- NOTE | 2019-02-25 07:51 | Infectious Disease Consult ---
Date of Consultation February 25, 2019 Assessment & Plan (1) Sepsis: 53-year-old male with metastatic prostate cancer with obstruction with indwelling nephrostomy tube, now presents with evidence of sepsis and both upper and lower tract urinary infection. For now, combination of daptomycin and cefepime appropriate pending further culture results. Await urologic reevaluation. Will discuss further with all involved. Will follow. (2) UTI (urinary tract infection): History of Present Illness Reason for Consultation: Sepsis, daptomycin treatment Attending Physician: Onur Forbes MD History of Present Illness 53-year-old male with known metastatic prostatic cancer, with obstructive uropathy requiring nephroureterostomy, on chemotherapy, also history of chronic hepatitis C infection, hypertension, hyperlipidemia, who was admitted to the hospital with 4-day history of progressively worsening fever, chills, myalgias and arthralgias, associated with hematuria and dysuria as well as with greenish purulent drainage around the nephrostomy tube. CT scan on admission showed evidence of both upper and lower tract infection, and patient has been started on daptomycin and cefepime empirically. Blood and urine cultures are pending. Urology consult pending. Patient continues to feel ill, with significant pain and now with blood in nephrostomy bag. Allergies Allergy/AdvReac Type Severity Reaction Status Date / Time sulfamethoxazole Allergy Intermediate Hives Unverified 02/24/19 12:04 [From Bactrim] trimethoprim [From Bactrim] Allergy Intermediate Hives Unverified 02/24/19 12:04 Penicillins AdvReac Severe passes out Unverified 02/24/19 12:04 Home Medications Home Medications Medication Instructions Recorded Confirmed Type albuterol sulfate 2 puff INHALATION QID PRN 02/24/19 02/24/19 History calcium carbonate-vitamin D3 1 tab PO QAM 02/24/19 02/24/19 History [Caltrate 600 plus D] denosumab [Xgeva] 120 mg SUBCUT Q3M 02/24/19 02/24/19 History ferrous gluconate 324 mg PO QAM 02/24/19 02/24/19 History fluticasone furoate-vilanterol 1 inh INHALATION DAILY 02/24/19 02/24/19 History [Breo Ellipta] leuprolide (3 month) [Lupron Depot 30 mg IM Q3M 02/24/19 02/24/19 History (3 month)] naproxen sodium [Aleve] 220 mg PO Q12H PRN 02/24/19 02/24/19 History tamsulosin 0.4 mg PO BID 02/24/19 02/24/19 History verapamil 180 mg PO HS 02/24/19 02/24/19 History Patient History Medical History Asthma (Chronic) Chronic hepatitis C (Chronic) Dyslipidemia (Chronic) HTN (hypertension) (Chronic) 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 Sober since 2008) Hx Substance Use: Yes (Former use cocaine, LSD, crystal meth. Clean since 1995) Review of Systems Review of Systems: All systems reviewed & are unremarkable except as noted in HPI & below Physical Exam Constitutional: WD/WN, vitals as above + ill appearing; no acute distress Eyes: PERRL, conjunctivae normal, anicteric sclerae ENMT: external ear and nose normal, oropharynx normal Neck: trachea midline, no thyromegaly neck nontender Respiratory: normal respiratory effort, lungs clear to auscultation normal percussion; does not use accessory muscles Cardiovascular: Rate/Rhythm: regular rate and regular rhythm Heart Sounds: normal S1 and normal S2; no gallop, no murmur and no cardiac rub Vessels: normal peripheral pulses; no JVD Gastrointestinal (Abdomen): Inspection/Auscultation: normal bowel sounds Percussion/Palpation: + abdomen tender (Mild right lower quadrant tenderness without rebound or guarding); no hepatosplenomegaly and no abdominal mass Musculoskeletal: no cyanosis or clubbing, extremities motor strength 5/5 Spine: thoracic spine normal to inspection and lumbar spine normal to inspection; no cervical spinal tenderness Skin: no rashes, warm and dry normal turgor; no lesions Neurologic: moves all extremities and awake; no focal motor deficits and no meningeal signs Psychiatric: A+Ox3, euthymic affect Orientation: cooperative Genitourinary: Nephrostomy tube in place with blood in nephrostomy bag Lymphatic: no cervical or axillary lymphadenopathy no inguinal lymphadenopathy Results & Data Vital Signs (Past 12 Hours) Vital Signs Temp Pulse Pulse Resp BP Pulse Ox 02/25/19 07:10 37.0 C 71 18 111/71 95 02/25/19 04:00 36.3 C L 82 20 133/75 97 02/25/19 01:15 37.3 C 02/24/19 23:18 38.3 C H 73 20 106/64 94 02/24/19 22:25 70 Laboratory Results Short CBC 02/24/19 02/25/19 Range/Units 13:52 06:12 WBC 11.79 H 9.26 (4.8-10.8) K/uL Hgb 13.9 L 13.6 L (14.0-18.0) g/dL Hct 40.7 L 39.6 L (42-52) % Plt Count 187 182 (130-400) K/uL BMP 02/24/19 02/25/19 13:52 06:12 Sodium 136 140 Potassium 4.1 3.8 Chloride 103 109 H Carbon Dioxide 25 21 BUN 17 18 Creatinine 1.59 H 1.56 H Glucose 100 H 90 Calcium 9.0 8.1 L Liver Function 02/24/19 Range/Units 13:52 Total Bilirubin 0.6 (0.2-1) mg/dl AST 10 L (15-37) U/L ALT 15 (12-78) U/L Alkaline Phosphatase 58 (45-117) U/L Albumin 3.5 (3.4-5.0) gm/dl Urine 02/24/19 Range/Units 12:46 Urine Color Yellow Urine Appearance Turbid A (Clear) Urine pH 5.5 (4.5-7.5) Ur Specific [place] 1.020 (1.000-1.030) Urine Protein 3+ H (Negative) Urine Glucose (UA) Negative (Negative) Diagnostic Findings CT abd pelvis IV con only CLINICAL HISTORY: 53 years-old Male presenting with abd pain, fever, prostate ca. TECHNIQUE: Multidetector CT of the abdomen and pelvis was performed after the administration of intravenous contrast. IV contrast: 93 mL of Optiray 320. One or more dose lowering techniques were used consistent with the principles of ALARA (as low as reasonably achievable), including automatic exposure control, mA or kV adjustment to individual patient size, and/or use of iterative reconstruction. COMPARISON: None. CT DOSE (mGy.cm): The estimated cumulative dose is 825.02 mGycm. FINDINGS: Reception Clerk topogram: Pigtail catheter projects over the right abdomen. Lung bases: Normal heart size. No pericardial or pleural effusion. Minimal dependent changes likely atelectasis. Liver: Normal morphology. No liver lesion. Patent hepatic vasculature. Biliary: No intrahepatic or extrahepatic biliary ductal dilatation. Normal gallbladder. Pancreas: Normal. Spleen: Normal. Splenule noted. Adrenal glands: Normal. Kidneys and ureters: Few renal cysts bilaterally. A nephroureterostomy tube is in place. There is mild delayed perfusion of the right kidney. There also may be mild atrophy of the right kidney. No right hydronephrosis. Urothelial thickening on the right is likely reactive due to the presence of the stent. No urothelial thickening is evident on the left there is no left hydronephrosis. Bladder: Polypoid bladder wall thickening along the posterior bladder neck. Circumferential bladder wall thickening is also present with trace. Vesicular fat infiltration. The urinary bladder is decompressed. Pelvic organs: Prostate and seminal vesicles normal. Bowel: Normal appendix. No bowel obstruction. Peritoneal cavity: No free fluid or intraperitoneal gas. Lymph nodes: No enlarged lymph nodes in the abdomen or pelvis. Vasculature: Atherosclerosis of the normal caliber abdominal aorta. IVC patent. Abdominal wall: Bilateral fat-containing inguinal hernias. Musculoskeletal: Multifocal sclerotic osseous lesions in the right hemipelvis. No additional lesions are detected. Bilateral pars defects of L5 without significant anterolisthesis. IMPRESSION: 1. Right nephroureterostomy tube in place. No right hydronephrosis. 2. Right urothelial thickening may be reactive to the presence of the stent. Correlate with urinalysis to ensure the absence of infection as the presence of perivesicular fat stranding raises concern for cystitis with upper tract involvement of infection. 3. Polypoid bladder wall thickening highly concerning for primary urothelial/bladder neoplasm. This does not appear to relate to median lobe hypertrophy of the prostate. 4. Multifocal sclerotic osseous lesions in the right hemipelvis are highly suspicious for osseous metastatic disease. 5. No lymphadenopathy or other sites of metastatic disease in abdomen or pelvis. PG Care Time/CCT Total # of Minutes Spent Total Time Spent with Patient: Total time spent is greater than 50% in coordination of care (as documented) at patient's floor/unit and/or counseling patient: (1) UTI (urinary tract infection) Hematuria presence: with hematuria Urinary tract infection type: site unspecified Qualified Code(s): N39.0 - Urinary tract infection, site not specified; R31.9 - Hematuria, unspecified
[2019-02-25] MEDS: CALCIUM 600MG + VIT D 400 IU TAB PO SCH (09:02)
[2019-02-25] MEDS: FERROUS GLUCONATE 324 MG TAB PO SCH (09:02)
[2019-02-25] MEDS: TAMSULOSIN HCL 0.4 MG CAP PO SCH ×2 (09:53→20:20)
[2019-02-25] MEDS: ACETAMINOPHEN 325 MG TAB PO PRN ×2 (12:12→17:13)
[2019-02-25] MEDS: LACTOBACILLUS ACIDOPHILUS (FLORANEX) TAB PO SCH ×3 (13:11→20:19)
--- NOTE | 2019-02-25 13:55 | Hospitalist Progress Note ---
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 - on admission met sepsis criteria, with SIRS criteria of fever, tachycardia and urinary source (3) Prostate cancer metastatic to bone: -follows with as outpatient (4) Obstruction of right ureter: -History prostate CA with mets to bone -malignant obstruction of right ureter, pt is now s/p nephroureteral catheter on 02/07/[address] Kunz (urology) (5) HTN (hypertension): -Continue verapamil (6) Asthma: -no acute asthma exacerbation at this time -continue home Breo, albuterol prn (7) Chronic hepatitis C: -Treated in 2015 and 2016 DVT Prophylaxis -Heparin SQ while inpatient Full Code as per discussion with pt Follows with Arnoldo Wallace PA-C for routine care Subjective Pt is sitting up in bed in no acute distress. Blod clot passed through nephr. tube and nursing staph exchanged about 225 cc of bloody/urine neph. output. Pt now complains of R flank pain and headache. Currently no chest pain, shortness of breath, abd. pain, nausea, or vomiting. Has been having fevers. Results & Data Vital Signs (Past 12 Hours) Vital Signs Temp Pulse Pulse Resp BP BP Pulse Ox 02/25/19 11:23 36.8 C 109 H 18 136/85 94 02/25/19 08:00 73 02/25/19 07:10 37.0 C 71 18 111/71 95 02/25/19 04:00 36.3 C L 82 20 133/75 97 (1) UTI (urinary tract infection) Hematuria presence: with hematuria Urinary tract infection type: site unspecified Qualified Code(s): N39.0 - Urinary tract infection, site not specified; R31.9 - Hematuria, unspecified
[2019-02-25] MEDS: TRAMADOL HCL 50 MG TABLET PO PRN ×3 (14:49→23:59)
--- NOTE | 2019-02-25 17:43 | Urology Consultation ---
Date of Consultation February 25, 2019 Assessment & Plan (1) Sepsis: continue iv antibiotics until cultures are back. I suspect he will fever a little less high tonight and a little less high again tomorrow then gone. Will need 2 weeks antibiotics. his bactrim allergy is a shame as it might have been a good option for outpatient oral therapy. Keep nephr tube to gravity drainage. I think all the hematuria is inflammatory in origin and will stop shortly. He has a headache, might be caffeine withdrawal from missing his energy drink last 2 days. he will try some mountain dew soda. Present on Admission?: Yes (2) UTI (urinary tract infection): (3) Obstruction of right ureter: We will plan to internalize the right nephroureteral stent in about 4 weeks as an outpatient. The bladder masses on ct scan are presumed to be locally advanced prostate cancer. Will see them and biopsy them when in OR to internalize the nephro- ureteral tube. Present on Admission?: Yes History of Present Illness Reason for Consultation: pyelonephritis Requesting Physician: Dr Michaels Attending Physician: Onur Forbes MD History of Present Illness I am asked by Dr Michaels to evaluate and treat patient for right pyelonephritis. He presented to my office febrile and looking toxic with several days of dysuria and urinary bleeding. We sent some urine from the nephrostomy tube which is growing staph aureus. He is not feeling much better and c/po a headache. He has for the last 8 years taken a nutritional caffeine drink sold to him by his sister. he has not had one for 2 days now. Tylenol and tramadol have not helped the headache. He also is worried about the lack of output from the right nephrostomy tube all day today. it drained well overnight. he is voiding urine per urethra and it has lightened from darkly bloody to almost normal thru the day. He notes a clot in the tubing which is likely clogging the tube. He is on dapto and cefepime. His labs look better and no fevers yet today but his tmax yesterday was in the evening about 5pm so might be still yet to come. Allergies Allergy/AdvReac Type Severity Reaction Status Date / Time sulfamethoxazole Allergy Intermediate Hives Unverified 02/24/19 12:04 [From Bactrim] trimethoprim [From Bactrim] Allergy Intermediate Hives Unverified 02/24/19 12:04 Penicillins AdvReac Severe passes out Unverified 02/24/19 12:04 Home Medications Home Medications Medication Instructions Recorded Confirmed Type albuterol sulfate 2 puff INHALATION QID PRN 02/24/19 02/24/19 History calcium carbonate-vitamin D3 1 tab PO QAM 02/24/19 02/24/19 History [Caltrate 600 plus D] denosumab [Xgeva] 120 mg SUBCUT Q3M 02/24/19 02/24/19 History ferrous gluconate 324 mg PO QAM 02/24/19 02/24/19 History fluticasone furoate-vilanterol 1 inh INHALATION DAILY 02/24/19 02/24/19 History [Breo Ellipta] leuprolide (3 month) [Lupron Depot 30 mg IM Q3M 02/24/19 02/24/19 History (3 month)] naproxen sodium [Aleve] 220 mg PO Q12H PRN 02/24/19 02/24/19 History tamsulosin 0.4 mg PO BID 02/24/19 02/24/19 History verapamil 180 mg PO HS 02/24/19 02/24/19 History Patient History Medical History Asthma (Chronic) Chronic hepatitis C (Chronic) Dyslipidemia (Chronic) HTN (hypertension) (Chronic) 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 Portal hypertension (Chronic) Prostate cancer metastatic to bone (Chronic) Surgical History History of carpal tunnel surgery (Chronic) History of colonoscopy (Chronic) History of urostomy (Chronic) Family History Other Cancer Diabetes Social History Preferred Language: Azeri Communication Ability: Effective Medical Staff Credentialing Coordinator Required: No Beliefs That Will Affect Care: None marital status: Single Current Living Situation: Alone Other Information That Helps Us Care for You: No Feels Safe at Home: Yes Safety Concerns: Feels Safe At This Time Smoking Status: Former smoker Hx Alcohol Use: Yes (Former alcoholic. Sober since 2008) Hx Substance Use: Yes (Former use cocaine, LSD, crystal meth. Clean since 1995) Review of Systems Review of Systems: PMH- metastatic prostate cancer Soc- , team otr truck driver, no alcohol ROS- + fever + chills, appetite fair, bowels fine. skin rash from tape around nephrostomy tube, no seizures, no chest pain no cough or shortness of breath. Physical Exam Constitutional: well developed, well nourished, + acute distress, + well hydrated and + obese Eyes: PERRL, conjunctivae normal, anicteric sclerae Gastrointestinal (Abdomen): Inspection/Auscultation: abdomen normal to inspection and normal bowel sounds; abdomen not distended and no visible herniation Skin: macular rash around right nephrostomy tube from tape. Psychiatric: Orientation: oriented x 3 Affect: + angry affect Genitourinary: The right neph bag drainage tube has a 2 inch clot in it. I disconnected it and the clot drained right out. The neph tube then started draining robustly bloody then clear urine about 15mL total. I put him back to gravity bag drainage. Results & Data Vital Signs (Past 12 Hours) Vital Signs Temp Pulse Pulse Resp BP BP Pulse Ox 02/25/19 16:11 66 02/25/19 15:22 37.0 C 69 20 126/78 96 02/25/19 11:23 36.8 C 109 H 18 136/85 94 02/25/19 08:00 73 02/25/19 07:10 37.0 C 71 18 111/71 95 (1) UTI (urinary tract infection) Hematuria presence: with hematuria Urinary tract infection type: site unspecified Qualified Code(s): N39.0 - Urinary tract infection, site not specified; R31.9 - Hematuria, unspecified
--- NOTE | 2019-02-25 17:45 | Urology Consultation ---
Date of Consultation February 25, 2019 Assessment & Plan (1) Sepsis: continue iv antibiotics until cultures are back. I suspect he will fever a little less high tonight and a little less high again tomorrow then gone. Will need 2 weeks antibiotics. his bactrim allergy is a shame as it might have been a good option for outpatient oral therapy. Keep nephr tube to gravity drainage. I think all the hematuria is inflammatory in origin and will stop shortly. He has a headache, might be caffeine withdrawal from missing his energy drink last 2 days. he will try some mountain dew soda. (2) UTI (urinary tract infection): (3) Obstruction of right ureter: We will plan to internalize the right nephroureteral stent in about 4 weeks as an outpatient. The bladder masses on ct scan are presumed to be locally advanced prostate cancer. Will see them and biopsy them when in OR to internalize the nephro- ureteral tube. History of Present Illness Reason for Consultation: pyelonephritis Requesting Physician: Dr Michaels Attending Physician: Onur Forbes MD History of Present Illness I am asked by Dr Michaels to evaluate and treat patient for Allergies Allergy/AdvReac Type Severity Reaction Status Date / Time sulfamethoxazole Allergy Intermediate Hives Unverified 02/24/19 12:04 [From Bactrim] trimethoprim [From Bactrim] Allergy Intermediate Hives Unverified 02/24/19 12:04 Penicillins AdvReac Severe passes out Unverified 02/24/19 12:04 Home Medications Home Medications Medication Instructions Recorded Confirmed Type albuterol sulfate 2 puff INHALATION QID PRN 02/24/19 02/24/19 History calcium carbonate-vitamin D3 1 tab PO QAM 02/24/19 02/24/19 History [Caltrate 600 plus D] denosumab [Xgeva] 120 mg SUBCUT Q3M 02/24/19 02/24/19 History ferrous gluconate 324 mg PO QAM 02/24/19 02/24/19 History fluticasone furoate-vilanterol 1 inh INHALATION DAILY 02/24/19 02/24/19 History [Breo Ellipta] leuprolide (3 month) [Lupron Depot 30 mg IM Q3M 02/24/19 02/24/19 History (3 month)] naproxen sodium [Aleve] 220 mg PO Q12H PRN 02/24/19 02/24/19 History tamsulosin 0.4 mg PO BID 02/24/19 02/24/19 History verapamil 180 mg PO HS 02/24/19 02/24/19 History Patient History Medical History Asthma (Chronic) Chronic hepatitis C (Chronic) Dyslipidemia (Chronic) HTN (hypertension) (Chronic) 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 Portal hypertension (Chronic) Prostate cancer metastatic to bone (Chronic) Surgical History History of carpal tunnel surgery (Chronic) History of colonoscopy (Chronic) History of urostomy (Chronic) Family History Other Cancer Diabetes Social History Preferred Language: Yoruba Communication Ability: Effective Vessel Slagman Required: No Beliefs That Will Affect Care: None marital status: Single Current Living Situation: Alone Other Information That Helps Us Care for You: No Feels Safe at Home: Yes Safety Concerns: Feels Safe At This Time Smoking Status: Former smoker Hx Alcohol Use: Yes (Former alcoholic. Sober since 2008) Hx Substance Use: Yes (Former use cocaine, LSD, crystal meth. 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 skin rash from tape around nephrostomy tube, no seizures, no chest pain no cough or shortness of breath. Physical Exam Constitutional: well developed, well nourished, + acute distress, + well hydrated and + obese Eyes: PERRL, conjunctivae normal, anicteric sclerae Gastrointestinal (Abdomen): Inspection/Auscultation: abdomen normal to inspection and normal bowel sounds; abdomen not distended and no visible herniation Psychiatric: Orientation: oriented x 3 Affect: + angry affect Results & Data Vital Signs (Past 12 Hours) Vital Signs Temp Pulse Pulse Resp BP BP Pulse Ox 02/25/19 16:11 66 02/25/19 15:22 37.0 C 69 20 126/78 96 02/25/19 11:23 36.8 C 109 H 18 136/85 94 02/25/19 08:00 73 02/25/19 07:10 37.0 C 71 18 111/71 95 (1) UTI (urinary tract infection) Hematuria presence: with hematuria Urinary tract infection type: site unspecified Qualified Code(s): N39.0 - Urinary tract infection, site not specified; R31.9 - Hematuria, unspecified
[2019-02-25] MEDS: DAPTOmycin 300 MG in SYRINGE 0 ML IV SCH (20:18)
[2019-02-25] MEDS: FLUTICASONE/SALMETEROL (ADVAIR) 500/50 INH 14 PUFF INH SCH (20:19)
[2019-02-25] MEDS: VERAPAMIL HCL 180 MG TABCR PO SCH (20:20)
--- NOTE | 2019-02-25 22:08 | Hospitalist Progress Note ---
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 -Saw urology- Dr Kunz yesterday and urine culture was obtained from nephroureteral stent. Pt was referred to ER for further evaluation and treatment. - on admission met sepsis criteria, with SIRS criteria of fever, tachycardia and urinary source Blood cltx - pending Urine cltx - pending (obtained in the office by Dr. Kunz yesterday) Pt started on IV daptomycin and cefepime, ID consulted, for now recommend to continue - urology (Dr. Kunz) following, plans to internalize the right nephroureteral stent in about 4 weeks as an outpatient. The bladder masses on ct scan are presumed to be locally advanced prostate cancer. Will see them and biopsy them when in OR to internalize the nephro-ureteral tube Pain in R flank - will provide tylenol and tramadol prn Headache - tylenol prn (3) Prostate cancer metastatic to bone: -follows with as outpatient (4) Obstruction of right ureter: -History prostate CA with mets to bone -malignant obstruction of right ureter, pt is now s/p nephroureteral catheter on 02/07/[address] Kunz (urology) (5) HTN (hypertension): -Continue verapamil (6) Asthma: -no acute asthma exacerbation at this time -continue home Breo, albuterol prn (7) Chronic hepatitis C: -Treated in 2016 and 2017 DVT Prophylaxis -Heparin SQ while inpatient Full Code as per discussion with pt Follows with Arnoldo Wallace PA-C for routine care Subjective Pt is sitting up in bed in no acute distress. Blod clot passed through nephr. tube and nursing staph exchanged about 225 cc of bloody/urine neph. output. Pt now complains of R flank pain and headache. Currently no chest pain, shortness of breath, abd. pain, nausea, or vomiting. Has been having fevers. Review of Systems Review of Systems: All systems reviewed & are unremarkable except as noted in HPI & below Constitutional: + fever, + chills and + fatigue Respiratory: no cough, no dyspnea and no pain on inspiration Cardiovascular: no chest pain, no radiating jaw, neck or arm pain and no palpitations Gastrointestinal: no abdominal pain, no nausea and no vomiting Physical Exam Physical Exam: General: no acute distress, WDWN, non-toxic appearing at this time Head: normocephalic, atraumatic Eyes: PERRL, EOM's intact, conjunctiva non-injected, anicteric ENT: normal inspection external ears, nose, mucous membranes moist Neck: supple, trachea midline Lungs: clear, no respiratory distress, no wheezing/rhonchi/rales CV: RRR, no murmur, no pretibial edema Abd: normal BS, soft, Right CVA with nephroureteral tube draining grossly bloody urine into bag; + CVA tenderness to percussion Ext: no cyanosis, no calf tenderness Neuro: A&O x 3, no focal deficits noted, normal affect Skin: warm, dry Results & Data Vital Signs (Past 12 Hours) Vital Signs Temp Pulse Pulse Resp BP Pulse Ox 02/25/19 18:56 36.8 C 73 18 124/74 96 02/25/19 16:11 66 02/25/19 15:22 37.0 C 69 20 126/78 96 02/25/19 11:23 36.8 C 109 H 18 136/85 94 Laboratory Results 02/25/19 02/25/19 02/24/19 Range/Units 06:12 06:12 19:50 WBC 9.26 (4.8-10.8) K/uL RBC 4.43 L (4.7-6.1) M/uL Hgb 13.6 L (14.0-18.0) g/dL Hct 39.6 L (42-52) % MCV 89.4 (80-100) fL MCH 30.7 (25-34) pg MCHC 34.3 (32-36) g/dL RDW Std Deviation 43.4 (36.4-46.3) fL RDW Coeff of Shanita 13.3 (11.5-14.5) % Plt Count 182 (130-400) K/uL MPV 10.5 H (7.4-10.4) fL Immature Gran % (Auto) 0.2 % Neut % (Auto) 77.2 % Lymph % (Auto) 8.5 % [place] % (Auto) 10.6 % Eos % (Auto) 3.3 % Baso % (Auto) 0.2 % Immature Gran # (Auto) 0.02 (0.00-0.02) K/uL Neut # (Auto) 7.14 H (1.4-6.5) K/uL Lymph # (Auto) 0.79 L (1.2-3.4) K/uL [place] # (Auto) 0.98 H (0.11-0.59) K/uL Eos # (Auto) 0.31 (0-0.5) K/uL Baso # (Auto) 0.02 (0-0.2) K/uL Sodium 140 (136-145) mmol/L Potassium 3.8 (3.5-5.1) mmol/L Chloride 109 H (98-107) mmol/L Carbon Dioxide 21 (21-32) mmol/L Anion Gap 10.0 (3-11) BUN 18 (7-18) mg/dl Creatinine 1.56 H (0.6-1.4) mg/dl Est Cr Clr Drug Dosing 58.1 ml/min Est GFR ( Amer) 57.1 Est GFR (Non-Af Amer) 49.3 BUN/Creatinine Ratio 11.8 (10-20) Glucose 90 (70-99) mg/dl Calcium 8.1 L (8.5-10.1) mg/dl Nasal Screen MRSA (PCR) Negative (Negative) Medications Administered Current Inpatient Medications Acetaminophen (Tylenol) 650 mg PO Q4H PRN PRN Reason: Pain or Fever Stop: 03/26/19 18:11 Last Admin: 02/25/19 17:13 Dose: 650 mg Documented by: Albuterol (Ventolin Hfa) 2 puffs INH QID PRN PRN Reason: Shortness Of Breath Or Wheezin Stop: 03/26/19 18:11 Ferrous Gluconate (Ferrous Gluconate) 324 mg PO QAM [facility] Stop: 03/27/19 08:59 Last Admin: 02/25/19 09:02 Dose: 324 mg Documented by: Sodium Chloride (Nss 1000ml) 1,000 mls @ 125 mls/hr IV .Q8H [facility] Stop: 03/26/19 18:29 Last Admin: 02/25/19 18:54 Dose: 125 mls/hr Documented by: Daptomycin 300 mg/ Syringe 6 mls @ 3 mls/min IV Q24H [facility]; Protocol Stop: 03/06/19 19:59 Last Admin: 02/25/19 20:18 Dose: 3 mls/min Documented by: Cefepime HCl 2,000 mg/ Syringe 20 mls @ 5 mls/min IV Q12H [facility]; Protocol Stop: 03/07/19 01:59 Last Admin: 02/25/19 13:41 Dose: 5 mls/min Documented by: Lactobacillus Acidophilus (Floranex) 4 tab PO QIDM [facility] Stop: 03/27/19 11:59 Last Admin: 02/25/19 20:19 Dose: 4 tab Documented by: Miscellaneous Information (Cefepime Consult Active) 1 ea N/A UD PRN PRN Reason: Consult Stop: 03/26/19 18:22 Miscellaneous Information (Consult) 1 ea N/A UD PRN PRN Reason: Consult Stop: 03/26/19 18:23 Multivitamins/Minerals (Caltrate Plus) 1 tab PO QAM [facility] Stop: 03/27/19 08:59 Last Admin: 02/25/19 09:02 Dose: 1 tab Documented by: Ondansetron HCl (Zofran) 4 mg IV Q6H PRN PRN Reason: Nausea Stop: 03/26/19 18:11 Fluticasone/Salmeterol (Advair Diskus 500/50) 1 puffs INH BID [facility] Stop: 03/27/19 20:59 Last Admin: 02/25/19 20:19 Dose: Not Given Documented by: Tamsulosin HCl (Flomax) 0.4 mg PO BID [facility] Stop: 03/26/19 20:59 Last Admin: 02/25/19 20:20 Dose: 0.4 mg Documented by: Tramadol HCl (Ultram) 25 mg PO Q4H PRN PRN Reason: Pain Stop: 03/27/19 14:38 Last Admin: 02/25/19 18:54 Dose: 25 mg Documented by: Verapamil HCl (Calan Sr) 180 mg PO HS [facility] Stop: 03/26/19 20:59 Last Admin: 02/25/19 20:20 Dose: 180 mg Documented by: (1) UTI (urinary tract infection) Hematuria presence: with hematuria Urinary tract infection type: site unspecified Qualified Code(s): N39.0 - Urinary tract infection, site not specified; R31.9 - Hematuria, unspecified
[2019-02-26] MEDS: CEFEPIME 2,000 MG in SYRINGE 7.5 ML IV SCH ×2 (02:31→13:40)
[2019-02-26] MEDS: SODIUM CHLORIDE 0.9% 1000ML 1,000 ML IV SCH ×3 (02:35→13:33)
[2019-02-26] MEDS: TRAMADOL HCL 50 MG TABLET PO PRN ×3 (06:11→20:00)
[2019-02-26 06:48] LABS: Basophils # (auto) 0.02 K/uL (0-0.2); Basophils % (auto) 0.3 %; Eosinophils # (auto) 0.61 K/uL (0-0.5); Eosinophils % (auto) 8.8 %; Hematocrit (blood only) 39.4 % (42-52); Hemoglobin 13.5 g/dL (14.0-18.0); Immature Granulocytes # (auto) 0.01 K/uL (0.00-0.02); Immature Granulocytes % (auto) 0.1 %; Lymphocytes # (auto) 1.27 K/uL (1.2-3.4); Lymphocytes % (auto) 18.4 %; Mean Corpuscular Hemoglobin 30.4 pg (25-34); Mean Corpuscular Hgb Conc 34.3 g/dL (32-36); Mean Corpuscular Volume 88.7 fL (80-100); Monocytes # (auto) 0.74 K/uL (0.11-0.59); Monocytes % (auto) 10.7 %; Neutrophils # (auto) 4.25 K/uL (1.4-6.5); Neutrophils % (auto) 61.7 %; Platelet Count 181 K/uL (130-400); RDW Coefficient of Variation 13.3 % (11.5-14.5); RDW Standard Deviation 43.3 fL (36.4-46.3); Red Blood Count 4.44 M/uL (4.7-6.1)
[2019-02-26 07:20] LABS: BUN Creatinine Ratio 11.1 (10-20); Calcium 8.5 mg/dl (8.5-10.1); Creatinine Clr Calc Pharmacy 68.6 ml/min; Est GFR (African American) 69.3; Est GFR (Non-African American) 59.8; Magnesium 2.3 mg/dl (1.8-2.4); Potassium 4.1 mmol/L (3.5-5.1)
[2019-02-26 07:24] LABS: Phosphorus 3.1 mg/dl (2.5-4.9)
[2019-02-26] MEDS: TAMSULOSIN HCL 0.4 MG CAP PO SCH ×2 (08:13→20:01)
[2019-02-26] MEDS: LACTOBACILLUS ACIDOPHILUS (FLORANEX) TAB PO SCH ×4 (08:14→20:02)
[2019-02-26] MEDS: CALCIUM 600MG + VIT D 400 IU TAB PO SCH (08:14)
[2019-02-26] MEDS: FLUTICASONE/SALMETEROL (ADVAIR) 500/50 INH 14 PUFF INH SCH ×2 (08:14→20:02)
[2019-02-26] MEDS: FERROUS GLUCONATE 324 MG TAB PO SCH (08:14)
--- NOTE | 2019-02-26 14:29 | Hospitalist Progress Note ---
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 Presented on admission with fever and met sepsis criteria, with SIRS criteria of fever, tachycardia and urinary source CT ABD/PELVIS: 1. Right nephroureterostomy tube in place. No right hydronephrosis. 2. Right urothelial thickening may be reactive to the presence of the stent. Correlate with urinalysis to ensure the absence of infection as the presence of perivesicular fat stranding raises concern for cystitis with upper tract involvement of infection. 3. Polypoid bladder wall thickening highly concerning for primary urothelial/bladder neoplasm. This does not appear to relate to median lobe hypertrophy of the prostate. 4. Multifocal sclerotic osseous lesions in the right hemipelvis are highly suspicious for osseous metastatic disease. 5. No lymphadenopathy or other sites of metastatic disease in abdomen or pelvis. -In ER given 1L NSS, Tylenol IV, Cefepime, Vancomycin -patient subsequently continued on cefepime and daptomycin -urine culture with pansensitive Staphylococcus aureus -blood cultures have not finalized yet but no positive bacteria seen yet (3) Prostate cancer metastatic to bone: -follows with Dr. 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 Kunz of [facility] urology is following the patient locally while hospitalized -she has commented about plans to internalize the right nephroureteral stent in about 4 weeks as an outpatient and that the bladder masses on CT scan are presumed to be locally advanced prostate cancer with plans for possible biopsy in (5) HTN (hypertension): -Continue verapamil (6) Asthma: -no acute asthma exacerbation at this time -Continue Breo, albuterol prn (7) Chronic hepatitis C: -Treated in 2016 and 2017 DVT Prophylaxis -Heparin SQ Full Code as per discussion with pt Follows with Arnoldo Wallace PA-C for routine care Subjective Patient reports previously yesterday he had clots seen coming from nephrostomy tube but denies this today. Urine in bag is yellow. Patient denies vomiting. He has some pain but not at site near nephrostomy tube. no chest pain. no shortness of breath. breathing on room air Review of Systems Review of Systems: All systems reviewed & are unremarkable except as noted in HPI & below Physical Exam Constitutional: WD/WN, vitals as above Eyes: PERRL, conjunctivae normal, anicteric sclerae EOM intact bilaterally ENMT: external ear and nose normal, oropharynx normal Neck: normal visual inspection Respiratory: normal respiratory effort, lungs clear to auscultation Cardiovascular: Rate/Rhythm: regular rate and regular rhythm Gastrointestinal (Abdomen): normal bowel sounds, soft, nontender, no hepatosplenomegaly Musculoskeletal: no cyanosis or clubbing, extremities motor strength 5/5 Head/Neck/Chest: normocephalic and head atraumatic Neurologic: PERRL, EOMI, accommodation nl, no face palsy, no dysarthria CN's II-XI intact bilaterally Psychiatric: A+Ox3, euthymic affect Genitourinary: patient has nephrostomy catheter draining urine into bag Results & Data Vital Signs (Past 12 Hours) Vital Signs Temp Pulse Pulse Resp BP Pulse Ox 02/26/19 10:53 36.6 C 70 18 145/80 H 96 02/26/19 07:41 53 L 02/26/19 07:19 36.9 C 70 16 122/71 93 02/26/19 03:30 36.6 C 62 18 112/20 L 94 (1) UTI (urinary tract infection) Hematuria presence: with hematuria Urinary tract infection type: site unspecified Qualified Code(s): N39.0 - Urinary tract infection, site not specified; R31.9 - Hematuria, unspecified
[2019-02-26] MEDS: ACETAMINOPHEN 325 MG TAB PO PRN (15:24)
[2019-02-26] MEDS: CEFAZOLIN 2000MG 2,000 MG/15 ML SYR IV SCH ×2 (16:24→23:54)
[2019-02-26] MEDS: VERAPAMIL HCL 180 MG TABCR PO SCH (20:01)
--- NOTE | 2019-02-26 20:06 | Infectious Disease Progress Nt ---
Date of Service February 26, 2019 Assessment & Plan (1) Sepsis: 53-year-old male with metastatic prostate cancer with obstruction with indwelling nephrostomy tube, now presents with evidence of sepsis and both upper and lower tract urinary infection. Patient to IV cefazolin for now, likely can transition to oral antibiotics in the next day or so blood cultures remain negative. Will likely need 2 to 3 weeks of oral antibiotics, will but will depend on plans of urology for intervention. Will discuss with all involved. Will follow. (2) UTI (urinary tract infection): Subjective Patient seen in follow-up for sepsis with probable urinary tract infection. Patient feeling slightly better today. Now draining clear urine from nephrostomy bag. Still with significant pain. Urine cultures growing methicillin sensitive staph aureus, blood cultures remain negative to date. Urology follow-up noted. Review of Systems Review of Systems: All systems reviewed & are unremarkable except as noted in HPI & below Physical Exam Constitutional: WD/WN, vitals as above + ill appearing; no acute distress Eyes: PERRL, conjunctivae normal, anicteric sclerae ENMT: external ear and nose normal, oropharynx normal Neck: trachea midline, no thyromegaly neck nontender Respiratory: normal respiratory effort, lungs clear to auscultation normal percussion; does not use accessory muscles Cardiovascular: Rate/Rhythm: regular rate and regular rhythm Heart Sounds: normal S1 and normal S2; no gallop, no murmur and no cardiac rub Vessels: normal peripheral pulses; no JVD Gastrointestinal (Abdomen): Inspection/Auscultation: normal bowel sounds Percussion/Palpation: + abdomen tender (Mild right lower quadrant tenderness without rebound or guarding); no hepatosplenomegaly and no abdominal mass Musculoskeletal: no cyanosis or clubbing, extremities motor strength 5/5 Spine: thoracic spine normal to inspection and lumbar spine normal to inspection; no cervical spinal tenderness Skin: no rashes, warm and dry normal turgor; no lesions Neurologic: moves all extremities and awake; no focal motor deficits and no meningeal signs Psychiatric: A+Ox3, euthymic affect Orientation: cooperative Genitourinary: Draining clear urine in nephrostomy bag today Lymphatic: no cervical or axillary lymphadenopathy no inguinal lymphadenopathy Results & Data Vital Signs (Past 12 Hours) Vital Signs Temp Pulse Pulse Resp BP Pulse Ox 02/26/19 19:11 36.9 C 67 18 154/82 H 98 11/13/19 17:04 67 02/26/19 15:12 36.9 C 72 17 158/91 H 97 02/26/19 10:53 36.6 C 70 18 145/80 H 96 Laboratory Results Short CBC 02/26/19 Range/Units 06:37 WBC 6.90 (4.8-10.8) K/uL Hgb 13.5 L (14.0-18.0) g/dL Hct 39.4 L (42-52) % Plt Count 181 (130-400) K/uL BMP 02/26/19 06:37 Sodium 140 Potassium 4.1 Chloride 111 H Carbon Dioxide 22 BUN 15 Creatinine 1.33 Glucose 93 Calcium 8.5 Diagnostic Findings Microbiology 02/24/19 13:51 Blood Aerobic Blood Culture - Preliminary No growth in Aerobic bottle after 48 hours. 02/24/19 13:51 Blood Anaerobic Blood Culture - Preliminary No growth in Anaerobic bottle after 48 hours. 02/24/19 13:52 Blood Aerobic Blood Culture - Preliminary No growth in Aerobic bottle after 48 hours. 02/24/19 13:52 Blood Anaerobic Blood Culture - Preliminary No growth in Anaerobic bottle after 48 hours. 02/24/19 12:46 Urine,Clean Catch Urine Culture - Final Staphylococcus aureus PG Care Time/CCT Total # of Minutes Spent Total Time Spent with Patient: Total time spent is greater than 50% in coordination of care (as documented) at patient's floor/unit and/or counseling patient: (1) UTI (urinary tract infection) Hematuria presence: with hematuria Urinary tract infection type: site unspecified Qualified Code(s): N39.0 - Urinary tract infection, site not specified; R31.9 - Hematuria, unspecified
[2019-02-27] MEDS: SODIUM CHLORIDE 0.9% 1000ML 1,000 ML IV SCH (02:27)
[2019-02-27] MEDS: CALCIUM 600MG + VIT D 400 IU TAB PO SCH (08:12)
[2019-02-27] MEDS: FERROUS GLUCONATE 324 MG TAB PO SCH (08:13)
[2019-02-27] MEDS: FLUTICASONE/SALMETEROL (ADVAIR) 500/50 INH 14 PUFF INH SCH (08:13)
[2019-02-27] MEDS: LACTOBACILLUS ACIDOPHILUS (FLORANEX) TAB PO SCH ×2 (08:13→12:14)
[2019-02-27] MEDS: TAMSULOSIN HCL 0.4 MG CAP PO SCH (08:13)
[2019-02-27] MEDS: TRAMADOL HCL 50 MG TABLET PO PRN ×2 (08:18→15:34)
[2019-02-27] MEDS: CEFAZOLIN 2000MG 2,000 MG/15 ML SYR IV SCH (08:22)
[2019-02-27] MEDS ORDERED: ACETAMINOPHEN 325 MG TAB PO PRN (11:13)
--- NOTE | 2019-02-27 14:20 | Hospitalist Progress Note ---
Date of Service February 27, 2019 Assessment & Plan (1) UTI (urinary tract infection): complicated UTI (urinary tract infection), sepsis (2) Sepsis: Patient presented on 02/24/19 admission with fever and met sepsis criteria, with SIRS criteria of fever, tachycardia and urinary source. Was given Cefepime, Vancomycin and IV fluids in the ED. Then transitioned to Zosyn. Zosyn stopped and transitioned to Cefazolin on 02/26/19. urine culture with velazquez sensitive Staphylococcus aureus and finalized blood cultures with no growth by 02/27/19 Discharge on oral antibiotics of Cephalexin (Keflex) 500 mg every 12 hours for 14 more days Discharge medication of acetaminophen of 325 mg every 6 hours as needed for pain or fever for 5 days Tramadol 50 mg every 6 hours as needed for moderate to severe pain (16 tablets prescribed) because of nephrostomy tubes and history of cancer related pain [place] PDMP was checked and no records that patient was prescribed any controlled pain medications Discharge Medications sent to [facility] Address: [address] [place] [address] On 02/28/19, [place] [address] to be assessed by the Interventional Radiology department in regards to the leakage of urine from the nephrostomy tubing to the bag. The outpatient [employer] professor is named Cris and she can be reached [phone]. Patient is advised to not eat before going to the hospital in case there is any need for the nephrostomy tubing to be completely changed Patient should follow up closely with Dr. Kunz of urology (she has commented about plans to internalize the right nephroureteral stent in about 4 weeks as an outpatient and that the bladder masses on CT scan are presumed to be locally advanced prostate cancer with plans for possible biopsy) Scheduled appointments 03/11/2019 3:00 PM Provider Arnoldo Wallace Jr., PA-C Department [facility] 04/03/2019 2:45 PM Provider Catrachito Mann MD Department Hematology/Oncology [facility] 04/03/2019 3:15 PM Provider Chair [facility] Onc [facility] Department Hematology/Oncology Treatment, [place] (3) Prostate cancer metastatic to bone: -follows with Dr. Catrachito Mann as outpatient (4) Obstruction of right ureter: -History prostate CA with mets to bone -Recent malignant obstruction of right ure[place] [facility] [place] Kunz of [facility] urology is following the patient locally while hospitalized -she has commented about plans to internalize the right nephroureteral stent in about 4 weeks as an outpatient and that the bladder masses on CT scan are presumed to be locally advanced prostate cancer with plans for possible biopsy in (5) HTN (hypertension): -Continue verapamil (6) Asthma: -no acute asthma exacerbation at this time -Continue Breo, albuterol prn (7) Chronic hepatitis C: -Treated in 2016 and 2017 DVT Prophylaxis -Heparin SQ while inpatient Full Code as per discussion with pt Follows with Arnoldo Wallace PA-C for routine care Subjective No fevers overnight. Patient reports that the leakage from the nephrostomy tubing to the urine bag is irritating to him. Tramadol appears to offer abdominal or back pain relief. Discharge plans discussed with patient. Discharge antibiotics discussed with Dr. Lema on the telephone Patient does not have chest pain. no shortness breath. breathing on room air. ambulatory . no dizziness. no lightheadedness Review of Systems Review of Systems: All systems reviewed & are unremarkable except as noted in HPI & below Physical Exam Constitutional: WD/WN, vitals as above Eyes: PERRL, conjunctivae normal, anicteric sclerae EOM intact bilaterally ENMT: external ear and nose normal, oropharynx normal Neck: normal visual inspection Respiratory: normal respiratory effort, lungs clear to auscultation Cardiovascular: Rate/Rhythm: regular rate and regular rhythm Gastrointestinal (Abdomen): normal bowel sounds, soft, nontender, no hepatosplenomegaly Musculoskeletal: no cyanosis or clubbing, extremities motor strength 5/5 Head/Neck/Chest: normocephalic and head atraumatic Hip: + hip abnormal to inpsection (right nephrostomy tube) Neurologic: PERRL, EOMI, accommodation nl, no face palsy, no dysarthria CN's II-XI intact bilaterally Psychiatric: A+Ox3, euthymic affect Results & Data Vital Signs (Past 12 Hours) Vital Signs Temp Pulse Pulse Resp BP Pulse Ox Pulse Ox 02/27/19 11:51 97 02/27/19 11:50 36.7 C 65 18 131/75 97 02/27/19 07:17 58 L 02/27/19 07:04 36.8 C 64 14 139/80 96 02/27/19 03:00 36.4 C L 58 L 20 105/69 97 (1) UTI (urinary tract infection) Hematuria presence: with hematuria Urinary tract infection type: site unspecified Qualified Code(s): N39.0 - Urinary tract infection, site not specified; R31.9 - Hematuria, unspecified
--- NOTE | 2019-02-27 14:26 | Discharge Summary ---
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 Pt states 4 days ago started feeling febrile with myalgias, chills, fatigue. Yesterday took temperature and was 100.8F. He states after procedure he had hematuria and dysuria passing urine through urethra. Hematuria slowed down and he started using nephroureteral catheter and since has passed intermittent urine through urethra and has dysuria and hematuria. Also reports right flank pain when urinates through urethra. Saw urology- Dr Kunz today and urine culture was obtained from nephroureteral stent. Pt was referred to ER for further evaluation and treatment. Pt also reports chronic nasal congestion however feels increased over past 4 days. Slight intermittent cough that is productive white. Denies SOB, CP, wheezing. Did not have flu vaccine this season. Reports co-worker had URI symptoms. Pt states since procedure on 02/07/19 he has had approx 8 episodes of loose stools. Had one loose stool yesterday and no BM yet today. Denies other abdominal pain, nausea or vomiting. Denies hematochezia, melena, BARTH, dizziness, syncope, vision changes, neck pain, CP, SOB, orthopnea, palpitations, sore throat, choking, otalgia, paresthesias, weakness, extremity weakness, extremity edema, rashes. Admission Exam Per Admitting Provider Physical Exam Physical Exam: General: no acute distress, WDWN, non-toxic appearing at this time Head: normocephalic, atraumatic Eyes: PERRL, EOM's intact, conjunctiva non-injected, anicteric ENT: normal inspection external ears, nose, mucous membranes moist Neck: supple, trachea midline Lungs: clear, no respiratory distress, no wheezing/rhonchi/rales CV: RRR, no murmur, no pretibial edema Abd: normal BS, soft, Right CVA with nephroureteral tube draining yellow urine into bag; no CVA tenderness to percussion, right lower abdomen mild tenderness to palpation without rebound Ext: no cyanosis, no calf tenderness Neuro: A&O x 3, no focal deficits noted, normal affect Skin: warm, dry Principal Diagnosis complicated UTI (urinary tract infection), sepsis, prostate cancer, hypertension Discharge Exam Constitutional WD/WN, vitals as above Eyes PERRL, conjunctivae normal, anicteric sclerae EOM intact bilaterally ENMT external ear and nose normal, oropharynx normal Neck normal visual inspection Respiratory normal respiratory effort, lungs clear to auscultation Cardiovascular Rate/Rhythm: regular rate and regular rhythm Gastrointestinal (Abdomen) normal bowel sounds, soft, nontender, no hepatosplenomegaly Musculoskeletal no cyanosis or clubbing, extremities motor strength 5/5 Head/Neck/Chest: normocephalic and head atraumatic Hip: + hip abnormal to inpsection (right nephrostomy tube) Neurologic PERRL, EOMI, accommodation nl, no face palsy, no dysarthria CN's II-XI intact bilaterally Psychiatric A+Ox3, euthymic affect Discharge Data Allergies Allergy/AdvReac Type Severity Reaction Status Date / Time Penicillins Allergy Severe passes Verified 02/26/19 15:19 out, hives sulfamethoxazole Allergy Intermediate Hives Unverified 02/24/19 12:04 [From Bactrim] trimethoprim [From Bactrim] Allergy Intermediate Hives Unverified 02/24/19 12:04 aminophylline Allergy PASSES Verified 02/26/19 15:20 OUT, HIVES Consultations 02/24/19 14:47 ED Decision to Admit Stat 02/24/19 18:12 Consult Case Management - Discharge Planning Routine Consult Infectious Diseases Routine Consult Urology Routine Ordered Studies 02/24/19 13:52 CT abd pelvis IV con only Stat Hospital Course (1) UTI (urinary tract infection): complicated UTI (urinary tract infection), sepsis (2) Sepsis: Patient presented on 02/24/19 admission with fever and met sepsis criteria, with SIRS criteria of fever, tachycardia and urinary source. Was given Cefepime, Vancomycin and IV fluids in the ED. Then transitioned to Zosyn. Zosyn stopped and transitioned to Cefazolin on 02/26/19. urine culture with pansensitive Staphylococcus aureus and finalized blood cultures with no growth by 02/27/19 Discharge on oral antibiotics of Cephalexin (Keflex) 500 mg every 12 hours for 14 more days Discharge medication of acetaminophen of 325 mg every 6 hours as needed for pain or fever for 5 days Tramadol 50 mg every 6 hours as needed for moderate to severe pain (16 tablets prescribed) because of nephrostomy tubes and history of cancer related pain [place] PDMP was checked and no records that patient was prescribed any controlled pain medications Discharge Medications sent to [facility] Address: [address] [place] [id number] On 02/28/19, [place] [address] to be assessed by the Interventional Radiology department in regards to the leakage of urine from the nephrostomy tubing to the bag. The outpatient aviation maintenance instructor is named Cris and she can be reached [phone]. Patient is advised to not eat before going to the hospital in case there is any need for the nephrostomy tubing to be completely changed Patient should follow up closely with Dr. Kunz of urology (she has commented about plans to internalize the right nephroureteral stent in about 4 weeks as an outpatient and that the bladder masses on CT scan are presumed to be locally advanced prostate cancer with plans for possible biopsy) Scheduled appointments 03/11/2019 3:00 PM Provider Arnoldo Wallace Jr., PA-C Department [facility] 04/03/2019 2:45 PM Provider Catrachito Mann MD Department Hematology/Oncology [facility] 04/03/2019 3:15 PM Provider Chair 11 Hem Onc [facility] Department Hematology/Oncology Treatment, [place] (3) Prostate cancer metastatic to bone: -follows with Dr. 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 Kunz of [facility] urology is following the patient locally while hospitalized -she has commented about plans to internalize the right nephroureteral stent in about 4 weeks as an outpatient and that the bladder masses on CT scan are presumed to be locally advanced prostate cancer with plans for possible biopsy in (5) HTN (hypertension): -Continue verapamil (6) Asthma: -no acute asthma exacerbation at this time -Continue Breo, albuterol prn (7) Chronic hepatitis C: -Treated in 2015 and 2017 DVT Prophylaxis -Heparin SQ while inpatient Full Code as per discussion with pt Follows with Arnoldo Wallace PA-C for routine care Total Time Total Time Spent Total Time Spent (In Minutes): 40 minutes Total Time Includes: Examination of the Patient, Discharge Planning, Medication Reconciliation and Communication With Other Providers Discharge Plan Discharge Items Patient Disposition: Home - Self-Care Reason For Visit: UTI,SEPSIS Discharge Diagnosis: complicated UTI (urinary tract infection), sepsis, prostate cancer, hypertension Condition on Discharge: Good Activity: Resume your previous activity Non-emergency contact: Primary Care Provider and Specialist Call non-emergency contact if: you have any medication questions Follow-up/Referrals: Arnoldo Wallace PA-C [Primary Care Provider] - Diet: Regular Addtl Attending Provider Instructions: Patient presented on 02/24/19 admission with fever and met sepsis criteria, with SIRS criteria of fever, tachycardia and urinary source. Was given Cefepime, Vancomycin and IV fluids in the ED. Then transitioned to Zosyn. Zosyn stopped and transitioned to Cefazolin on 02/26/19. urine culture with pansensitive Staphylococcus aureus and finalized blood cultures with no growth by 02/27/19 Discharge on oral antibiotics of Cephalexin (Keflex) 500 mg every 12 hours for 14 more days Discharge medication of acetaminophen of 325 mg every 6 hours as needed for pain or fever for 5 days Tramadol 50 mg every 6 hours as needed for moderate to severe pain (16 tablets prescribed) because of nephrostomy tubes and history of cancer related pain [place] PDMP was checked and no records that patient was prescribed any controlled pain medications Discharge Medications sent to [facility] Address: [address] [place], [place] [id number] On 02/28/19, Patient should go to [address] [address] to be assessed by the Interventional Radiology department in regards to the leakage of urine from the nephrostomy tubing to the bag. The outpatient aviation maintenance instructor is named Cris and she can be reached [phone]. Patient is advised to not eat before going to the hospital in case there is any need for the nephrostomy tubing to be completely changed Patient should follow up closely with Dr. Kunz of urology (she has commented about plans to internalize the right nephroureteral stent in about 4 weeks as an outpatient and that the bladder masses on CT scan are presumed to be locally advanced prostate cancer with plans for possible biopsy) Scheduled appointments 03/11/2019 3:00 PM Provider Arnoldo Wallace Jr., PA-C Department [facility] 04/03/2019 2:45 PM Provider Catrachito Mann MD Department Hematology/Oncology [facility] 04/03/2019 3:15 PM Provider Chair 11 Hem Onc [facility] Department Hematology/Oncology Treatment, [place] Pending Studies at Discharge: No Stand-Alone Forms: My [facility] [employer], Smoking Cessation Medications and DC Order Prescriptions: New acetaminophen 325 mg tablet 325 mg PO Q6H PRN (Reason: fever or pain) 5 Days Qty: 20 RF: 0 tramadol 50 mg Tablet 50 mg PO Q6H PRN (Reason: moderate to severe pain) 4 Days Qty: 16 RF: 0 cephalexin 500 mg Capsule 500 mg PO Q12H 14 Days Qty: 28 RF: 0 Continued verapamil 180 mg tablet extended release 180 mg PO HS RF: 0 tamsulosin 0.4 mg capsule 0.4 mg PO BID RF: 0 Lupron Depot (3 month) 22.5 mg Syringe Kit 30 mg IM Q3M RF: 0 naproxen sodium [Aleve] 220 mg Tablet 220 mg PO Q12H PRN (Reason: Pain) RF: 0 ferrous gluconate 324 mg (38 mg iron) Tablet 324 mg PO QAM RF: 0 Xgeva 120 mg/1.7 mL (70 mg/mL) Solution 120 mg SUBCUT Q3M RF: 0 Caltrate 600 plus D 600 mg (1,500 mg)-800 unit Tablet,Chewable 1 tab PO QAM RF: 0 Breo Ellipta 200-25 mcg/dose blister with device 1 inh inhalation DAILY RF: 0 albuterol sulfate 90 mcg/actuation Hfa Aerosol Inhaler 2 puff INHALATION QID PRN (Reason: Shortness Of Breath Or Wheezing) RF: 0 Discharge Orders: Discharge Order (Routine); Ordered 02/27/19 Ordered By: John Paul Salvador Admission Data Admit Date/Time: 02/24/19 15:53 Attending Provider: John Paul Salvador Admit Provider: Rodolfo Michaels Primary Care Provider: Arnoldo Wallace Other Providers: Janeth Toribio ; Rodolfo Michaels ; Janeth Kunz
[2019-02-27] MEDS ORDERED: cephALEXin 500 MG CAP PO SCH ×2 (15:00→16:00)
== END 2019-02-27 16:11 | disposition home or self-care (01) | DRG 872 ==
LOC: ED 11:11 → SUATTDRO 15:53 → 2W 15:53

== ENCOUNTER 2019-03-18 19:18 | Inpatient (IN) ==
[2019-03-18] MEDS: SODIUM CHLORIDE 0.9% 1000ML 1,000 ML IV SCH (20:12)
[2019-03-18 20:28] LABS: Basophils # (auto) 0.03 K/uL (0-0.2); Basophils % (auto) 0.2 %; Eosinophils # (auto) 0.31 K/uL (0-0.5); Eosinophils % (auto) 2.4 %; Hematocrit (blood only) 38.5 % (42-52); Hemoglobin 13.3 g/dL (14.0-18.0); Immature Granulocytes # (auto) 0.02 K/uL (0.00-0.02); Immature Granulocytes % (auto) 0.2 %; Lymphocytes # (auto) 1.43 K/uL (1.2-3.4); Lymphocytes % (auto) 11.3 %; Mean Corpuscular Hemoglobin 30.8 pg (25-34); Mean Corpuscular Hgb Conc 34.5 g/dL (32-36); Mean Corpuscular Volume 89.1 fL (80-100); Mean Platelet Volume 10.1 fL (7.4-10.4); Monocytes # (auto) 0.59 K/uL (0.11-0.59); Monocytes % (auto) 4.7 %; Neutrophils # (auto) 10.29 K/uL (1.4-6.5); Neutrophils % (auto) 81.2 %; Platelet Count 254 K/uL (130-400); RDW Coefficient of Variation 13.6 % (11.5-14.5); RDW Standard Deviation 44.2 fL (36.4-46.3); Red Blood Count 4.32 M/uL (4.7-6.1); White Blood Count 12.67 K/uL (4.8-10.8)
--- NOTE | 2019-03-18 20:31 | History & Physical Report ---
Date of Service March 18, 2019 Assessment & Plan (1) Obstruction of right ureter: his right nephrostomy tube appears to be draining. We will record output q shift. Present on Admission?: Yes (2) Painful bladder spasm: we will give a B and O suppository q 4 hours to try to help with the spasms. I do not see evidence on bladder scan of clot retention so I do not know what relief a silva catheter would give at this time. He additionally will likely clot off the catheter in the near future. Will try some iv morphine and zofran now with some percocet for longer acting pain relief. Present on Admission?: Yes (3) Gross hematuria: I believe this is coming from the tumors in his bladder. We will address these at surgery tomorrow Present on Admission?: Yes History of Present Illness Chief Complaint: cramping pain and gross hematuria Primary Care Provider: Arnoldo Wallace PA-C I am asked by Dr Elijah Guzman to evaluate and treat patient for painful bladder spasms and gross hematuria. He has metastatic prostate cancer which has recently begun to show androgen resistance on psa labs and progression on CT scan. He has new right hydroureteronephrosis to the bladder with some soft tissue masses at the trigone suspicious for cancer. He has had intermittent gross hematuria for about 6 weeks. He was offered nephroureteral stent placement and had that placed 6 weeks ago in [facility] He experienced a complicated UTI 3 weeks ago and was admitted with early sepsis. The urine grew methicillin sensitive staph. He recently completed 3 weeks of oral antibiotics for this. He suffered a fall at home and feel and struck his right side on Sunday 2 days prior to admission. He developed gross hematuria today along with painful spasms of pain and burning in the urethra. He is passing very little urine yet has a near constant need to urinate. He has a lot of pain radiating to the penis with the spasms. he has passed some small and medium clots. the nephrostomy tube is open to bag drainage and is bloody as well. We have him scheduled for OR tomorrow for placement of a double J ureteral stent and removal of the right nephroureteral stent. I also will biopsy tumor on the trigone as needed. He started macrobid this am at 10am in anticipation of the surgery tomorrow. Allergies Allergy/AdvReac Type Severity Reaction Status Date / Time aminophylline Allergy Intermediate PASSES Verified 03/04/19 11:38 OUT, HIVES Penicillins Allergy Intermediate passes Verified 03/18/19 20:21 out, hives as a child sulfamethoxazole Allergy Intermediate Hives Unverified 03/04/19 11:38 [From Bactrim] trimethoprim [From Bactrim] Allergy Intermediate Hives Unverified 03/04/19 11:38 Home Medications Home Medications Medication Instructions Recorded Confirmed Type Breo Ellipta 1 inh INHALATION DAILY 02/24/19 03/04/19 History Caltrate 600 plus D 1 tab PO QAM 02/24/19 03/04/19 History Lupron Depot (3 month) 30 mg IM Q3M 02/24/19 03/04/19 History Xgeva 120 mg SUBCUT Q3M 02/24/19 03/04/19 History albuterol sulfate 2 puff INHALATION QID PRN 02/24/19 03/04/19 History ferrous gluconate 324 mg PO QAM 02/24/19 03/04/19 History naproxen sodium [Aleve] 220 mg PO Q12H PRN 02/24/19 03/04/19 History tamsulosin 0.4 mg PO BID 02/24/19 03/04/19 History verapamil 180 mg PO HS 02/24/19 03/04/19 History nitroglycerin 0.3 mg SUBLINGUAL UD PRN 03/04/19 03/04/19 History Past Med/Surg History Social History Preferred Language: Sinhala Communication Ability: Effective Vp Scientific Required: No Beliefs That Will Affect Care: None marital status: Single Current Living Situation: Alone Feels Safe at Home: Yes Smoking Status: Former smoker Tobacco Type: cigarettes and smokeless tobacco ; Second Hand Exposure: Yes (1 CAN/DAY) ; Hx Alcohol Use: Yes (Former alcoholic. Sober since 2008) Hx Substance Use: Yes (Former use cocaine, LSD, crystal meth. Clean since 1994) Review of Systems Review of Systems: PMH- Asthma, hep C, prostate cancer, with bone metastasis, Surgery- right forearm surgery Family history- no other members with prostate cancer, brother had kidney stones ROS- no fevers no chills, normal apetite, bowels fine no rash, no nausea, no chest pain , no cough, no seizures Physical Exam Constitutional: WD/WN, vitals as above well developed patient alternates between calm and conversing normally to a minute later crying out loudly in pain and grabbing his genitals during the spasms. He has good color, and does not appear toxic, he has normal skin turgor. Respiratory: normal respiratory effort, lungs clear to auscultation Cardiovascular: RRR, no murmur, no edema Gastrointestinal (Abdomen): The abdomen is smooth and flat, the bladder is not distended or palpable. There are normal bowel sounds. Skin: no rashes, warm and dry Genitourinary: The penis is normal, there is bloody urine in his diaper, the testes are atrophied, The right nephrostomy tube is in good position and is draining bright red bloody urine of watery consistency. There is just over 150mL in the bag with some small clots. A bladder scan was done which reveals 134 mL of fluid in the bladder some look like clots. Results & Data Vital Signs (Past 12 Hours) Vital Signs Temp Pulse Resp BP Pulse Ox 03/18/19 20:03 75 22 95 03/18/19 19:25 36.6 C 83 16 144/102 H 97
[2019-03-18] MEDS ORDERED: MoRPHine SULFATE 2 MG/ML CARP IV STA (20:36)
[2019-03-18] MEDS ORDERED: CEFAZOLIN 2,000 MG/15 ML IV PUSH IV ONE (20:36)
[2019-03-18] MEDS ORDERED: ONDANSETRON INJ 2 MG/ML 2 ML VIAL IV STA (20:36)
[2019-03-18] MEDS: OXYCODONE/ACETAMINOPHEN 5mg/325mg TAB PO PRN (20:37)
[2019-03-18] MEDS: BELLADONNA/OPIUM SUPP 60 MG SUPP PR PRN (20:38)
[2019-03-18] MEDS ORDERED: OXYCODONE/ACETAMINOPHEN 5mg/325mg TAB PO PRN (20:42)
[2019-03-18 20:45] LABS: Alanine Aminotransferase 23 U/L (12-78); Albumin Level 4.1 gm/dl (3.4-5.0); Aspartate Aminotransferase 18 U/L (15-37); BUN Creatinine Ratio 14.8 (10-20); Blood Urea Nitrogen 22 mg/dl (7-18); Calcium 9.3 mg/dl (8.5-10.1); Carbon Dioxide 24 mmol/L (21-32); Chloride 109 mmol/L (98-107); Est GFR (African American) 62.4; Est GFR (Non-African American) 53.8; Glucose 119 mg/dl (70-99); Lipase 128 U/L (73-393); Potassium 3.7 mmol/L (3.5-5.1); Sodium 139 mmol/L (136-145)
[2019-03-18] MEDS ORDERED: CEFAZOLIN 2000MG 2,000 MG/15 ML SYR IV SCH (20:45)
[2019-03-18 20:48] LABS: Albumin Globulin Ratio 1.2 (0.9-2); Alkaline Phosphatase 65 U/L (45-117); Bilirubin,Total 0.3 mg/dl (0.2-1); Globulin 3.4 gm/dl (2.5-4.0); Total Protein 7.5 gm/dl (6.4-8.2)
[2019-03-18] MEDS ORDERED: ALBUTEROL HFA 8 GM INHALER INH PRN (20:53)
[2019-03-18] MEDS ORDERED: OXYBUTYNIN CHLORIDE 5 MG TAB PO STA (20:59)
--- NOTE | 2019-03-18 21:09 | Emergency Department Note ---
Entered by Cesia Baldwin acting as a scribe for History of Present Illness General Chief complaint: Urinary Symptoms Stated complaint: penis pain Time Seen by Provider: 03/18/19 19:30 History of Present Illness Provider complaint: urinary symptoms Onset (ago): hour(s) 9 Pain Consistency: + other (episode) Maximum Pain Intensity: 10 Quality: + other (urinary symptoms) Exacerbated By: + medication (antibiotics) Associated symptoms: + denies other symptoms (no fever for 2 weeks), + nausea/vomiting and + other (surgery tomorrow, nephrostomy bag filled up with blood 4 hours ago which has been happening intermittently for 6 months, blood clots out of penis, penis pain, bladder full and distended and painful) The patient is a 53 year old male who presents to the ED with complaints of an episode of urinary symptoms that started 9 hours ago. The patient states that he has a surgery scheduled tomorrow with Dr. Kunz- Urology for stent placements and nephrostomy tube adjustment. The patient states that she started him on antibiotics this morning; however, his pain started immediately following his first dose. The patient states that his nephrostomy bag started filling up with blood approximately 4 hours ago. The patient states that this has been happening intermittently for approximately 6 months. The patent states that he had blood clots come out of his penis today. The patient notes that his bladder feels full and distended which is also causing him pain. The patient states that he vomited a few days ago. The patient notes that he does not believe he has had a fever since he was seen here 2 weeks ago. Home Medications Home Medications Medication Instructions Recorded Confirmed Type Breo Ellipta 1 inh INHALATION DAILY 02/24/19 03/18/19 History Caltrate 600 plus D 1 tab PO QAM 02/24/19 03/18/19 History Lupron Depot (3 month) 30 mg IM Q3M 02/24/19 03/18/19 History Xgeva 120 mg SUBCUT Q3M 02/24/19 03/18/19 History albuterol sulfate 2 puff INHALATION QID PRN 02/24/19 03/18/19 History ferrous gluconate 324 mg PO QAM 02/24/19 03/18/19 History naproxen sodium [Aleve] 220 mg PO Q12H PRN 02/24/19 03/18/19 History tamsulosin 0.4 mg PO BID 02/24/19 03/18/19 History verapamil 180 mg PO HS 02/24/19 03/18/19 History nitroglycerin 0.3 mg SUBLINGUAL UD PRN 03/04/19 03/18/19 History nitrofurantoin macrocrystal 100 mg PO Q12H 03/18/19 03/18/19 History ondansetron 4 mg TRANSLINGUAL Q8 PRN 03/18/19 03/18/19 History Allergies Allergy/AdvReac Type Severity Reaction Status Date / Time aminophylline Allergy Intermediate PASSES Verified 03/18/19 20:41 OUT, HIVES Penicillins Allergy Intermediate passes Verified 03/18/19 20:41 out, hives as a child sulfamethoxazole Allergy Intermediate Hives Unverified 03/18/19 20:41 [From Bactrim] trimethoprim [From Bactrim] Allergy Intermediate Hives Unverified 03/18/19 20:41 Past Med/Surg History Medical History Asthma (Chronic) BRONCHIAL ASTHMA (HAS NOT USED RESCUE INHALER FOR A WHILE) Chronic hepatitis C (Chronic) TREATED AND NO LONGER TEST + Dyslipidemia (Chronic) GERD (gastroesophageal reflux disease) HTN (hypertension) (Chronic) 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 Migraine 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 Osteoarthritis Portal hypertension (Chronic) Prostate cancer metastatic to bone (Chronic) STAGE 4 Surgical History History of carpal tunnel surgery (Chronic) History of colonoscopy (Chronic) History of esophagogastroduodenoscopy (EGD) History of open reduction and internal fixation (ORIF) procedure RT ARM History of surgery NEPHROSTOMY TUBE IN PLACE (PLACE FLUSING) History of tonsillectomy [place] teeth removed Family History Other Cancer Diabetes Social History Preferred Language: Micronesian Communication Ability: Effective Manager Maritime Required: No Beliefs That Will Affect Care: None marital status: Single Current Living Situation: Alone Feels Safe at Home: Yes Smoking Status: Former smoker Tobacco Type: cigarettes and smokeless tobacco ; Second Hand Exposure: Yes (1 CAN/DAY) ; Hx Alcohol Use: Yes (Former alcoholic. Sober since 2008) Hx Substance Use: Yes (Former use cocaine, LSD, crystal meth. Clean since 1994) Review of Systems See HPI for pertinent positives & negatives. and A total of 10 systems reviewed and were otherwise negative Physical Exam Vital Signs Vital Signs - 24 hr 03/18/19 19:25 03/18/19 20:03 Temperature 36.6 C Temperature Source Oral Pulse Rate 83 75 Pulse Rhythm Regular Respiratory Rate 16 22 Blood Pressure 144/102 H Blood Pressure Mean 116 Pulse Oximetry 97 95 Oxygen Delivery Method Room Air Sepsis Recent Fever Within 48 Hours No Sepsis New/Unexplained Change in Mental Status No Sepsis Action Taken by Nursing No Action Required Constitutional: Vital signs reviewed. Eyes: Pupils are equal round reactive to light. Conjunctiva are noninjected. ENT: Pharynx is clear without erythema or exudate. Mucous membranes are moist. Neck supple without meningeal signs. Respiratory: Clear to auscultation bilaterally. Breath sounds are equal bilaterally. Cardiovascular: Regular rate and rhythm. No rubs or gallops. GI: Soft, nondistended. Bowel sounds are present. Mild suprapubic tenderness without distension. Musculoskeletal: Nephrostomy tube on right side, stoma showed no sign of infection or bleeding. Collection bag full of bloody urine. No peripheral edema. No lower extremity tenderness. Integumentary: No cyanosis. Neurological: The patient is awake and alert. No focal deficits. Psychiatric: Normal affect. Course Course 193: Past medical records reviewed. The patient was evaluated in room C3. A complete history and physical exam was performed. 2008: I reevaluated the patient and he is feeling better when laying down. Bladder scan only showed 130cc of urine. The nephrostomy bag was drained and had large clots. 2010: I spoke with Dr. River Urologkhushi and she will evaluate the patient for further management and pain control before surgery tomorrow. Consultations Consultation #1: I spoke with Dr. River Urologkhushi and she will evaluate the patient for further management and pain control before surgery tomorrow. Time: 20:10 Administered Medications Belladonna Alkaloids/Opium (B & O Adult) 60 mg FL Q6 PRN PRN Reason: Moderate Pain Stop: 04/01/19 20:08 Last Admin: 03/18/19 20:38 Dose: 60 mg Documented by: [id number] Sodium Chloride (Nss 1000ml) 1,000 mls @ 150 mls/hr IV .Q6H40M CHARLEY Stop: 04/17/19 20:14 Last Admin: 03/18/19 20:12 Dose: 150 mls/hr Documented by: [id number] Oxycodone/Acetaminophen (Percocet 5mg/325mg) 1 tab PO Q4H PRN PRN Reason: Pain Stop: 04/01/19 20:09 Last Admin: 03/18/19 20:37 Dose: 1 tab Documented by: [id number] Discontinued Medications Cefazolin Sodium (Ancef 2000mg) Confirm Administered Dose 2,000 mg IV .STK-MED ONE Stop: 03/18/19 20:37 Last Admin: 03/18/19 20:41 Dose: 2,000 mg Documented by: [id number] Morphine Sulfate (Morphine Sulfate) 2 mg IV NOW STA Stop: 03/18/19 20:37 Last Admin: 03/18/19 20:47 Dose: 2 mg Documented by: [id number] Ondansetron HCl (Zofran) 4 mg IV NOW STA Stop: 03/18/19 20:37 Last Admin: 03/18/19 20:47 Dose: 4 mg Documented by: [id number] Medical Decision Making Differential Diagnosis Differentials include urinary retention, UTI, bacteriuria, LYNETTE, prostate cancer. Medical Records Attestation: I reviewed the patient's medical records. Patient was discharged from hospital on 02/27/2019 for complicated UTI with sepsis, prostate cancer and hypertension. Patient was discharged with Keflex. Urine culture grew out velazquez sensitive staph aureus. Home Medications Current Medication List: was personally reviewed by me Laboratory Data Attestation: I reviewed the patient's lab results. Result diagrams: 03/18/19 20:15 03/18/19 20:15 Lab Results 03/18/19 03/18/19 03/18/19 Range/Units 20:15 20:15 20:26 WBC 12.67 H (4.8-10.8) K/uL RBC 4.32 L (4.7-6.1) M/uL Hgb 13.3 L (14.0-18.0) g/dL Hct 38.5 L (42-52) % MCV 89.1 (80-100) fL MCH 30.8 (25-34) pg MCHC 34.5 (32-36) g/dL RDW Std Deviation 44.2 (36.4-46.3) fL RDW Coeff of Shanita 13.6 (11.5-14.5) % Plt Count 254 (130-400) K/uL MPV 10.1 (7.4-10.4) fL Immature Gran % (Auto) 0.2 % Neut % (Auto) 81.2 % Lymph % (Auto) 11.3 % Brown % (Auto) 4.7 % Eos % (Auto) 2.4 % Baso % (Auto) 0.2 % Immature Gran # (Auto) 0.02 (0.00-0.02) K/uL Neut # (Auto) 10.29 H (1.4-6.5) K/uL Lymph # (Auto) 1.43 (1.2-3.4) K/uL Brown # (Auto) 0.59 (0.11-0.59) K/uL Eos # (Auto) 0.31 (0-0.5) K/uL Baso # (Auto) 0.03 (0-0.2) K/uL Sodium 139 (136-145) mmol/L Potassium 3.7 (3.5-5.1) mmol/L Chloride 109 H (98-107) mmol/L Carbon Dioxide 24 (21-32) mmol/L Anion Gap 6.0 (3-11) BUN 22 H (7-18) mg/dl Creatinine 1.45 H (0.6-1.4) mg/dl Est Cr Clr Drug Dosing Not Reportable Est GFR ( Amer) 62.4 Est GFR (Non-Af Amer) 53.8 BUN/Creatinine Ratio 14.8 (10-20) Glucose 119 H (70-99) mg/dl POC Lactic Acid Corey 0.65 L (0.90-1.70) mmol/L Calcium 9.3 (8.5-10.1) mg/dl Total Bilirubin 0.3 (0.2-1) mg/dl AST 18 (15-37) U/L ALT 23 (12-78) U/L Alkaline Phosphatase 65 (45-117) U/L Total Protein 7.5 (6.4-8.2) gm/dl Albumin 4.1 (3.4-5.0) gm/dl Globulin 3.4 (2.5-4.0) gm/dl Albumin/Globulin Ratio 1.2 (0.9-2) Lipase 128 (73-393) U/L Blood Pressure Blood Pressure Findings: Elevated blood pressure Blood Pressure Disposition: further management by hospitalist FABIO Narrative I did evaluate the patient as noted above. Patient is presenting with suprapubic abdominal pain. He stated that it started today after he just started antibiotics. He was placed on antibiotics as he is scheduled to have surgery tomorrow. He has a right nephrostomy tube and states that he is going to get a ureteral stent. He feels as if his bladder is full. I therefore ordered a bladder scan. He only had 130 cc in the bladder. IV access was established. I did order and review the patient's blood work as noted in the electronic medical record. He has stable anemia. His white count is 12.6. Creatinine is at baseline at 1.45. Dr. Kunz did evaluate the patient here in the emergency department. She felt his pain was likely due to bladder spasm. She did hospitalize him for pain control and surgery tomorrow. Impression & Plan Abdominal pain, Obstruction of right ureter, Gross hematuria Discharge Plan Visit Data Chief Complaint: Urinary Symptoms Stated Complaint: penis pain ED Provider: Allan Guzman Discharge Problem: Abdominal pain, Obstruction of right ureter, Gross hematuria Patient Disposition: Admitted As Inpatient Forms Stand Alone Forms: [facility] Prescriptions Prescriptions: No Action verapamil 180 mg tablet extended release 180 mg PO HS RF: 0 tamsulosin 0.4 mg capsule 0.4 mg PO BID RF: 0 Lupron Depot (3 month) 22.5 mg Syringe Kit 30 mg IM Q3M RF: 0 naproxen sodium [Aleve] 220 mg Tablet 220 mg PO Q12H PRN (Reason: Pain) RF: 0 ferrous gluconate 324 mg (38 mg iron) Tablet 324 mg PO QAM RF: 0 Xgeva 120 mg/1.7 mL (70 mg/mL) Solution 120 mg SUBCUT Q3M RF: 0 Caltrate 600 plus D 600 mg (1,500 mg)-800 unit Tablet,Chewable 1 tab PO QAM RF: 0 Breo Ellipta 200-25 mcg/dose blister with device 1 inh inhalation DAILY RF: 0 albuterol sulfate 90 mcg/actuation Hfa Aerosol Inhaler 2 puff INHALATION QID PRN (Reason: Shortness Of Breath Or Wheezing) RF: 0 nitroglycerin 0.3 mg Tablet, Sublingual 0.3 mg sublingual UD PRN (Reason: Chest Pain) RF: 0 nitrofurantoin macrocrystal 100 mg Capsule 100 mg PO Q12H RF: 0 ondansetron 4 mg tablet,disintegrating 4 mg translingual Q8 PRN (Reason: Nausea) RF: 0 Referrals Referrals: Arnoldo Wallace PA-C [Primary Care Provider] - Discharge Problem: Abdominal pain Qualifiers: Abdominal location: lower abdomen, unspecified Qualified Code(s): R10.30 - Lower abdominal pain, unspecified The scribe's documentation has been prepared under my direction and personally reviewed by me in its entirety. I confirm that the note above accurately reflects all work, treatment, procedures, and medical decision making performed by me.
[2019-03-19] MEDS: OXYCODONE/ACETAMINOPHEN 5mg/325mg TAB PO PRN ×3 (02:39→19:51)
[2019-03-19] MEDS: SODIUM CHLORIDE 0.9% 1000ML 1,000 ML IV SCH ×3 (02:41→19:36)
[2019-03-19] MEDS: CEFAZOLIN 2000MG 2,000 MG/15 ML SYR IV SCH ×3 (02:55→19:52)
[2019-03-19] MEDS: BELLADONNA/OPIUM SUPP 60 MG SUPP PR PRN (02:56)
[2019-03-19] MEDS ORDERED: MIDAZOLAM HCL 1 MG/ML 2ML VIAL ONE (06:44)
[2019-03-19] MEDS ORDERED: fentaNYL citrate 100 MCG/2 ML VIAL ONE ×2 (06:44→10:49)
[2019-03-19] MEDS ORDERED: PROPOFOL IV EMULSION 10 MG/ML 20 ML VIAL IV ONE (06:52)
[2019-03-19] MEDS ORDERED: LIDOCAINE HCL 2% 2 ML VIAL/AMP(20MG/ML) INFIL ONE (06:52)
[2019-03-19] MEDS ORDERED: ONDANSETRON INJ 2 MG/ML 2 ML VIAL ONE (06:52)
--- NOTE | 2019-03-19 07:15 | History & Physical Bridge Note ---
Date of Service March 19, 2019 History & Physical Bridge Note I have examined the patient, reviewed the History & Physical and in the interval since the performance of the History & Physical I have noted the following changes of clinical significance: no changes noted
[2019-03-19] MEDS ORDERED: BELLADONNA/OPIUM SUPP 60 MG SUPP PR ONE (07:35)
[2019-03-19] MEDS ORDERED: IOTHALAMATE MEGLUMINE II 17.2% 250 ML VIAL ONE (07:35)
[2019-03-19] MEDS ORDERED: ePHEDrine sulfate 50 MG/ML SYR ONE (07:45)
[2019-03-19] MEDS ORDERED: VERAPAMIL HCL 180 MG TABCR PO SCH ×2 (09:00→21:00)
--- NOTE | 2019-03-19 10:46 | Operative Report ---
Post Operative Report Pre & Post Diagnosis Operation Date: 03/19/19 07:15 Pre-Op Diagnosis: Gross Hematuria, Malignant Obstruction of Right Ureter, Bladder Spasms Post-Op Diagnosis: Gross Hematuria, Malignant Obstruction of Right Ureter, Bladder Spasms I identified the patient and participated in the time-out.: Yes Procedure Operation Date: 03/19/19 07:15 Actual Procedures p Cystoscopy, Transurethral Resection of a Bladder Tumor, Right Stent Placement with Removal of Nephrostomy Tube(Not Applicable) - Janeth Kunz MD Surgeon Janeth Kunz MD Environmental Protection Forester none Estimated Blood Loss 200 Findings See Below large 80mm sessile nodular bladder tumor filling the entire right and midline trigone. Small amount of clot in bladder. Active bleeding from many areas of tumor. Fluids 900 Specimens bladder tumor Drains 7 fr 26 centimeter double J stent Anesthesia Type General Complications none Disposition Accompanied Patient To Recovery: Yes Disposition: Recovery Room Indications malignant obstruction of right ureter due to metastatic and or locally advanced prostate cancer. Also having brisk gross hematuria with clot retention. Description of Procedure Patient was given general anesthesia and placed in lithotomy position. His genitals were prepped and draped in sterile fashion. Time out held with team. I placed a 22 fr rigid cystoscope to bladder. The urethra is unremarkable but had minor bleeding from bulbar urethra. The prostate is of average size with no obvious tumor nodules. The bladder neck and trigone are replaced by a large bulky sessile nodular tumor. I cannot see the bladder coil of the nephro- ureteral stent due to the bulk of the tumor. There is a minor amount of clot present. the tumor is bleeding from many sites. I used a combination of thick bipolar loop and button to resect the tumor and control brisk bleeding points. This took over 2 hours. Then once tumor was shaved back nearly flat I could see the bladder coil of stent. I had the right nephroureteral stent unlocked and skin stitch cut then cleansed with chlorhexidine. I passed a road runner wire to the bladder thru the stent. I grasped the wire and withdrew it from the urethra. I then removed the nephroureteral stent and found it to be intact. I placed a dual lumen urethrally to place a safety wire. I then I then placed a 7 fr 26 centimeter double J stent easily. I secured a coil in the kidney and bladder. I checked the bladder and found hemostasis to be acceptable. All prostate chips are all rinsed out and sent for specimen. I placed a 20 fr 3-way silva and started saline CBI. I concluded case. I placed a belladonna and opium suppository for post-op pain. He transferred to recovery under my escort, in stable condition. Plan: observe in hospital today, discharge tonight or tomorrow. continue ancef while he is here then macrobid at home. flomax daily oral pain meds as needed ASA 3 dirty case 1 minute 12 seconds fluoro ancef antibiotic construction person I attest to the content of the Intraoperative Record and any orders documented therein. Any exceptions are noted below.
[2019-03-19] MEDS ORDERED: BELLADONNA/OPIUM SUPP 60 MG SUPP PR PRN (10:50)
--- NOTE | 2019-03-19 11:03 | Fluoroscopy Report ---
FL KUB HISTORY: Right sided stent FLUOROSCOPY TIME: 1 minute and 12 seconds. FINDINGS: 2 fluoroscopic spot images were submitted for review. There is a right ureteral stent which appears in good position. IMPRESSION: Fluoroscopy provided for right ureteral stent placement.. Electronically signed by: Tio Erwin M.D. 03/19/2019 11:01 AM
[2019-03-19] MEDS ORDERED: LABETALOL HCL IV 5 MG/ML 20ML IV PRN (11:41)
[2019-03-19] MEDS ORDERED: ePHEDrine sulfate 50 MG/ML AMP IV PRN (11:41)
[2019-03-19] MEDS ORDERED: HYDROmorphone INJ 1 MG/ML SYRINGE IV PRN (11:41)
[2019-03-19] MEDS ORDERED: ONDANSETRON INJ 2 MG/ML 2 ML VIAL IV PRN (11:41)
[2019-03-19] MEDS ORDERED: ATROPINE SULFATE 0.1 MG/ML 10ML SYR IV PRN (11:41)
[2019-03-19] MEDS: fentaNYL citrate 100 MCG/2 ML VIAL IV PRN ×3 (11:46→12:04)
--- NOTE | 2019-03-19 12:20 | Anesthesiology Progress Note ---
Date of Service March 19, 2019 Anesthesia Post Procedure Vital Signs Vital Signs: Temp Pulse Pulse Pulse Resp BP BP 03/19/19 11:56 68 16 03/19/19 11:55 65 12 145/103 H 03/19/19 11:51 52 L 15 03/19/19 11:50 65 12 148/97 H 03/19/19 11:46 68 14 03/19/19 11:45 59 L 13 139/93 03/19/19 11:42 73 17 155/102 H 03/19/19 11:40 71 14 03/19/19 11:36 65 15 03/19/19 11:35 61 11 L 134/104 H 03/19/19 11:31 57 L 12 141/96 H 03/19/19 11:30 57 L 16 03/19/19 11:26 69 17 03/19/19 11:25 62 13 124/90 03/19/19 11:21 59 L 13 03/19/19 11:20 64 16 147/91 H 03/19/19 11:16 56 L 12 03/19/19 11:15 70 18 152/93 H 03/19/19 11:11 67 14 03/19/19 11:10 73 15 03/19/19 11:06 59 L 10 L 03/19/19 11:05 53 L 10 L 154/86 H 03/19/19 11:01 68 13 03/19/19 11:00 57 L 10 L 143/99 H 03/19/19 10:56 64 10 L 03/19/19 10:55 63 15 129/94 03/19/19 10:54 35.2 C L 69 81 10 L 03/19/19 06:42 36.8 C 58 L 18 127/86 03/19/19 06:17 36.7 C 62 16 131/85 03/18/19 22:26 36.7 C 65 16 144/86 H 03/18/19 22:11 89 22 180/99 H 03/18/19 21:30 89 22 180/99 H 03/18/19 21:00 87 20 180/113 H 03/18/19 20:03 75 22 03/18/19 20:01 75 24 151/94 H 03/18/19 19:25 36.6 C 83 16 144/102 H BP Pulse Ox 03/19/19 11:56 100 03/19/19 11:55 100 03/19/19 11:51 100 03/19/19 11:50 100 03/19/19 11:46 100 03/19/19 11:45 100 03/19/19 11:42 100 03/19/19 11:40 100 03/19/19 11:36 100 03/19/19 11:35 100 03/19/19 11:31 100 03/19/19 11:30 100 03/19/19 11:26 100 03/19/19 11:25 100 03/19/19 11:21 100 03/19/19 11:20 100 03/19/19 11:16 100 03/19/19 11:15 100 03/19/19 11:11 100 03/19/19 11:10 100 03/19/19 11:06 100 03/19/19 11:05 100 03/19/19 11:01 100 03/19/19 11:00 100 03/19/19 10:56 100 03/19/19 10:55 100 03/19/19 10:54 129/94 100 03/19/19 06:42 100 03/19/19 06:17 98 03/18/19 22:26 93 03/18/19 22:11 95 03/18/19 21:30 95 03/18/19 21:00 03/18/19 20:03 95 03/18/19 20:01 96 03/18/19 19:25 97 Pain Intensity Penis: Pain Intensity: 3 Other: Pain Intensity: 3 Transfer of Care Handoff Completed per policy Notes Mental Status: alert / awake / arousable Patient Amnestic to Procedure: Yes Nausea / Vomiting: adequately controlled Pain: adequately controlled Airway Patency, RR, SpO2: stable & adequate BP & HR: stable & adequate Hydration State: stable & adequate Anesthetic Complications: no major complications apparent and Pt Satisfied with anesthetic care
[2019-03-19] MEDS ORDERED: NITROGLYCERIN 0.3 MG/1 TAB 100 TAB BTL SL PRN (12:56)
[2019-03-19] MEDS ORDERED: ALBUTEROL HFA 8 GM INHALER INH PRN (12:56)
[2019-03-19] MEDS ORDERED: ONDANSETRON 4 MG OD TAB PO PRN (14:03)
--- NOTE | 2019-03-19 15:22 | Radiation OncologyConsultation ---
Date of Consultation March 19, 2019 Assessment & Plan (1) Prostate cancer metastatic to bone: Assessment: Mr. Bland is a 53-year-old gentleman who presents with castrate resistant metastatic prostate cancer diagnosed in 2017. The patient has been treated with Lupron and Casodex and Xgeva underneath the supervision of Dr. Catrachito Mann. Dr. Mann did stop the Casodex in December 2018. More recently, the patient has had urinary obstructive symptoms and has required the placement of a right nephrostomy tube and ureteral stent due to hydronephrosis. The patient presented to the emergency room on 03/18/2019 due to significant suprapubic pain and hematuria with passing of blood clots. The patient was brought to the operating room by Dr. Kunz on 03/19/2019 and she did perform a TURBT of a bladder tumor most likely consistent with prostate cancer. Dr. Kunz has requested our evaluation regarding palliative radiation therapy to the prostate and bladder. Treatment Options: 1. Palliative external beam radiation therapy to the prostate/bladder. 2. Continuation of systemic therapy underneath supervision of Dr. Catrachito Mann alone. 3. Best supportive care. Recommendation: Palliative external beam radiation therapy to the prostate and bladder. Plan: 1. CT simulation for treatment planning for radiation therapy. The patient will be scheduled for CT simulation tomorrow. If the patient is still in the hospital, we will bring the patient down for CT simulation otherwise we will call the patient to be brought in for CT simulation. 2. Continue follow-up with urology and medical oncology. 3. Patient and family encouraged to call us with any further questions or concerns. Rationale/Explanation of Treatment: I did explain the indications, alternatives, benefits, risks and side effects of external beam radiation therapy. I did explain the most common side effects including, but not limited to, skin erythema, skin breakdown, hyperpigmentation, telangiectasia, wound complications, perianal fistula development, fistula formation, nausea, vomiting, bowel obstruction, bowel perforation, dysuria, increased urinary frequency, urgency, diarrhea, constipation, melena, hematochezia, hematuria, radiation cystitis, radiation proctitis, fatigue, decreased blood counts, wound complications from surgery, rectal incontinence, secondary malignancy d evelopment. I did explain the procedures and daily process of radiation therapy. The patient understands and would be willing to consent to treatment. The patient and parents had multiple questions which were answered to their full satisfaction. Thank you for allowing us to participate in the care of this patient. This chart was completed in part utilizing [facility] Speech Voice Recognition sof Mango DSP. Attempts were made to minimize the grammatical errors, random word insertions, pronoun errors and incomplete sentences. Any formal questions or concerns about the content, text or information contained within the body of this dictation should be directly addressed to the provider for clarification. Kristin Mann MD Department of Radiation Oncology [facility] Present on Admission?: Yes History of Present Illness Attending Physician: Janeth Kunz MD History of Present Illness 07/06/2016. PSA. 39.76. 07/26/2016. PSA. 49.65. 08/11/2016. Transrectal ultrasound-guided biopsy of prostate gland. Prostate adenocarcinoma detected in biopsies. [place] 4+5 prostate adenocarcinoma noted. Perineural invasion noted. 09/07/2016. CT of abdomen/pelvis. IMPRESSION: 1. Enlarged prostate. Bulging of the prostate base at the bladder base. Bladder is otherwise unremarkable on this study. 2. Bilateral iliac chain and presacral lymphadenopathy as described above concerning for metastatic disease. 3. Right cardiophrenic and gastrohepatic lymph nodes may be reactive ; however, metastatic disease not excluded. Nonenlarged chris hepatis and portacaval lymph nodes may be reactive. Correlate with outside imaging if available. 4. Lucent lesion measuring 1.0 x 0.8 cm at the right iliac bone without cortical disruption. Metastatic disease not excluded. Followup suggested. 09/14/2016. Bone scan. IMPRESSION: 1. Focal increased radiotracer uptake in the right innominate bone is consistent with metastatic disease. 2. Focal uptake at the base of left 5th toe is consistent with posttraumatic changes, consistent with patient's recent history of trauma. 10/03/2016. PSA. 53.22. 10/2016. Patient started on Lupron, Casodex and Xgeva underneath the supervision of Dr. Catrachito Mann. 12/27/2016. PSA. 1.29. 03/21/2017. PSA. 0.42. 07/11/2017. PSA. 0.60. 10/03/2017. PSA. 1.42. 11/01/2017. PSA. 1.59. 01/30/2018. PSA. 2.14. 02/20/2018. PSA. 2.21. 04/24/2018. PSA. 1.00. 06/12/2017. PSA. 1.34. 08/13/2018. PSA. 2.03. 09/10/2018. PSA. 2.19. 10/31/2018. PSA. 2.28. 01/01/2019. PSA. 3.22. 01/09/2019. Medical oncology follow-up with Dr. Catrachito Mann. Dr. Mann recommends discontinuation of Casodex with continuation of Lupron and Xgeva. Dr. Mann is recommended repeating the PSA to then determine another treatment option. 01/16/2019. CT of chest/abdomen/pelvis. IMPRESSION: Chest: 1. Two previously seen tiny pulmonary nodules along the left major fissure are stable in size since chest CT dated 10/10/2016. A punctate pulmonary nodule in the left lower lobe, not definitively seen on the prior exam. Consider continued attention on the follow up studies. 2. No enlarged thoracic lymph nodes. Abdomen/pelvis: 1. No enlarged abdominal or pelvic lymph nodes. The previously seen enlarged pelvic lymph nodes on CT dated 09/07/2016 are subcentimeter in size on this exam. 2. New mild right hydronephrosis and hydroureter to the level of the bladder since the prior CT of unknown etiology. No obstructive calculi noted. Consider further evaluation with cystoscopy to exclude metastases or stricture. 3. Other incidental findings as detailed above. Bones: 1. Multiple new sclerotic bone metastases since the prior CT, most significantly involving the pelvic bones. 01/23/2019. Medical oncology progress note. Dr. Mann recommends repeat PSA in [address] Mann also recommends urology evaluation. 02/03/2019. PSA. 4.77. 02/07/2019. Percutaneous placement of right nephroureteral catheter. 03/18/2019. Patient presents to emergency room department for severe pain involving suprapubic region. Patient also complains of hematuria and passing blood clots through penis. Patient admitted to hospital for further work-up and evaluation. 03/19/2019. Cystoscopy and transurethral resection of a bladder tumor with right stent placement and removal of nephrostomy tube by Dr. Janeth Kunz. Operative findings include a large bulky sessile nodular tumor involving the bladder neck and extending into the bladder. Dr. Kunz was able to resect the entire endoluminal component. Preliminary pathology suggests prostate adenocarcinoma however final pathology has not been confirmed. Currently, the patient does say that his pain is gotten significantly better however he does have some spasm still involving the suprapubic region. He also complains of unrelated severe headaches consistent with migraines. Allergies Allergy/AdvReac Type Severity Reaction Status Date / Time aminophylline Allergy Intermediate PASSES Verified 03/18/19 20:41 OUT, HIVES Penicillins Allergy Intermediate passes Verified 03/18/19 20:41 out, hives as a child sulfamethoxazole Allergy Intermediate Hives Unverified 03/18/19 20:41 [From Bactrim] trimethoprim [From Bactrim] Allergy Intermediate Hives Unverified 03/18/19 20:41 Home Medications Home Medications Medication Instructions Recorded Confirmed Type Breo Ellipta 1 inh INHALATION DAILY 02/24/19 03/18/19 History Caltrate 600 plus D 1 tab PO QAM 02/24/19 03/18/19 History Lupron Depot (3 month) 30 mg IM Q3M 02/24/19 03/18/19 History Xgeva 120 mg SUBCUT Q3M 02/24/19 03/18/19 History albuterol sulfate 2 puff INHALATION QID PRN 02/24/19 03/18/19 History ferrous gluconate 324 mg PO QAM 02/24/19 03/18/19 History naproxen sodium [Aleve] 220 mg PO Q12H PRN 02/24/19 03/18/19 History tamsulosin 0.4 mg PO BID 02/24/19 03/18/19 History verapamil 180 mg PO HS 02/24/19 03/18/19 History nitroglycerin 0.3 mg SUBLINGUAL UD PRN 03/04/19 03/18/19 History nitrofurantoin macrocrystal 100 mg PO Q12H 03/18/19 03/18/19 History ondansetron 4 mg TRANSLINGUAL Q8 PRN 03/18/19 03/18/19 History Patient History Medical History Asthma (Chronic) BRONCHIAL ASTHMA (HAS NOT USED RESCUE INHALER FOR A WHILE) Chronic hepatitis C (Chronic) TREATED AND NO LONGER TEST + Dyslipidemia (Chronic) GERD (gastroesophageal reflux disease) HTN (hypertension) (Chronic) 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 Migraine 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 Osteoarthritis Portal hypertension (Chronic) Prostate cancer metastatic to bone (Chronic) STAGE 4 Surgical History History of carpal tunnel surgery (Chronic) History of colonoscopy (Chronic) History of esophagogastroduodenoscopy (EGD) History of open reduction and internal fixation (ORIF) procedure RT ARM History of surgery NEPHROSTOMY TUBE IN PLACE (PLACE FLUSING) History of tonsillectomy [place] teeth removed Family History Other Cancer Diabetes Social History Preferred Language: [place] Communication Ability: Effective Manager Economic Required: No Beliefs That Will Affect Care: None marital status: Single Current Living Situation: Alone Other Information That Helps Us Care for You: No Feels Safe at Home: Yes Safety Concerns: Feels Safe At This Time Smoking Status: Former smoker Tobacco Type: cigarettes and smokeless tobacco ; Do You Dip or Chew Tobacco: Yes ; Smoking End Date: 18 years ago ; Second Hand Exposure: Yes ; Tobacco Cessation Education Requested by Patient: No Hx Alcohol Use: No Hx Substance Use: No Review of Systems Review of Systems: All systems reviewed & are unremarkable except as noted in HPI & below Physical Exam Constitutional: WD/WN, vitals as above well developed and well nourished Eyes: PERRL, conjunctivae normal, anicteric sclerae ENMT: external ear and nose normal, oropharynx normal Neck: trachea midline, no thyromegaly Respiratory: normal respiratory effort, lungs clear to auscultation Cardiovascular: RRR, no murmur, no edema Gastrointestinal (Abdomen): normal bowel sounds, soft, nontender, no hepa tosplenomegaly Musculoskeletal: no cyanosis or clubbing, extremities motor strength 5/5 Skin: no rashes, warm and dry Neurologic: patellar DTR's 2+ bilat, sensation intact and PERRL, EOMI, accommodation nl, no face palsy, no dysarthria Psychiatric: A+Ox3, euthymic affect Results Additional Studies 03/19/19 07:18 XR Olympus images Routine 03/19/19 10:44 FL KUB Routine 03/19/19 10:45 FL fluoroscopy <1hr Routine Time Spent Attending This documentation has been prepared in part by, Gladys Ruiz PA-C, acting as a scribe under my direction. I, Kristin Mann MD, personally performed the services described and have reviewed the documentation to ensure its accuracy. I spent 45 minutes for this consultation, which included obtaining clinical information, performing a physical exam, recommending a plan of action and answering questions. Additionally, I spoke on the phone with Dr. Kunz for 10 minutes. Greater than 50% of the time spent was direct face to face interaction with the patient.
[2019-03-19] MEDS ORDERED: OXYBUTYNIN CHLORIDE XL 5 MG TABCR PO ONE (20:45)
[2019-03-19] MEDS: TAMSULOSIN HCL 0.4 MG CAP PO SCH (22:17)
[2019-03-20] MEDS: OXYCODONE/ACETAMINOPHEN 5mg/325mg TAB PO PRN ×2 (01:07→11:18)
[2019-03-20] MEDS: SODIUM CHLORIDE 0.9% 1000ML 1,000 ML IV SCH ×3 (01:08→12:15)
[2019-03-20] MEDS: CEFAZOLIN 2000MG 2,000 MG/15 ML SYR IV SCH ×2 (03:11→12:19)
[2019-03-20] MEDS: TAMSULOSIN HCL 0.4 MG CAP PO SCH (08:50)
[2019-03-20] MEDS: BELLADONNA/OPIUM SUPP 60 MG SUPP PR PRN (08:58)
[2019-03-20] MEDS ORDERED: CALCIUM 600MG + VIT D 400 IU TAB PO SCH (09:00)
[2019-03-20] MEDS ORDERED: FLUTICASONE/SALMETEROL (ADVAIR) 500/50 INH 14 PUFF INH SCH (09:00)
[2019-03-20] MEDS ORDERED: FERROUS GLUCONATE 324 MG TAB PO SCH (09:00)
--- NOTE | 2019-03-20 17:26 | Urology Progress Note ---
Date of Service March 20, 2019 Subjective late entry in ER on Sunday03/18/19 patient had 20 fr silva catheter coude type placed and hand irrigation of about 200mL of soft clot. He drained about 300mL of urine as well. He had moderate relief of bladder spasms and complete relief of bladder pressure. Results & Data Vital Signs (Past 12 Hours) Vital Signs Temp Pulse Resp BP Pulse Ox 03/20/19 11:17 37.3 C 72 18 112/67 95 03/20/19 06:53 36.9 C 67 18 104/63 94
--- NOTE | 2019-03-20 17:36 | Urology Progress Note ---
Date of Service March 20, 2019 Assessment & Plan (1) Gross hematuria: has resolved after tur of large bladder tumor. Will continue ditropan 5mg XL for bladder spasms int he post-op period. warned of dry mouth and constipation side effects. Will start radiation to prostate on Sunday. He will remove his silva tomorrow am at home. I have shown him how to cut the balloon port, allow balloon to drain then pull silva out slowly. He will resume macrobid at home for prior UTI. I suspect he will have some intermittent hematuria as he heals and he will return for clot obstruction to either office or ER will discharge home Present on Admission?: Yes (2) Obstruction of right ureter: related to prostate cancer locally advanced and or metastatic . I have significantly debulked the trigone tumor we have converted him from a 10 fr nephroureteral stent to a internal double J 7 fr 26 centimeter stent. He is not draining any urine out his back at this time. He may take the dressing off and shower. we will need to change that stent every 4-6 months he will get radiation starting sunday to the tumor area Present on Admission?: Yes Subjective Patient feels well. He is taking solid food and ambulating without difficulty. He was weaned off CBI this morning and urine has remained clear There were no c lots overnight. No fevers and stable vitals. Has soem headache. Review of Systems Review of Systems: All systems reviewed & are unremarkable except as noted in HPI & below less frequent bladder spasms Physical Exam Physical Exam: sitting up in shair at bedside. abd flat and soft. skin turgor and color normal silva in place attached to leg strap and draining clear urine with CBI port capped. Results & Data Vital Signs (Past 12 Hours) Vital Signs Temp Pulse Resp BP Pulse Ox 03/20/19 11:17 37.3 C 72 18 112/67 95 03/20/19 06:53 36.9 C 67 18 104/63 94
--- NOTE | 2019-03-20 17:39 | Discharge Summary ---
Date of Service March 20, 2019 Admission HPI Per Admitting Provider I am asked by Dr Elijah Guzman to evaluate and treat patient for painful bladder spasms and gross hematuria. He has metastatic prostate cancer which has recently begun to show androgen resistance on psa labs and progression on CT scan. He has new right hydroureteronephrosis to the bladder with some soft tissue masses at the trigone suspicious for cancer. He has had intermittent gross hematuria for about 6 weeks. He was offered nephroureteral stent placement and had that placed 6 weeks ago in [facility] [place]. He experienced a complicated UTI 3 weeks ago and was admitted with early sepsis. The urine grew methicillin sensitive staph. He recently completed 3 weeks of oral antibiotics for this. He suffered a fall at home and feel and struck his right side on Sunday 2 days prior to admission. He developed gross hematuria today along with painful spasms of pain and burning in the urethra. He is passing very little urine yet has a near constant need to urinate. He has a lot of pain radiating to the penis with the spasms. he has passed some small and medium clots. the nephrostomy tube is open to bag drainage and is bloody as well. We have him scheduled for OR tomorrow for placement of a double J ureteral stent and removal of the right nephroureteral stent. I also will biopsy tumor on the trigone as needed. He started macrobid this am at 10am in anticipation of the surgery tomorrow. Admission Exam (Per Admitting) Constitutional + acute distress, healthy appearing and + in distress Respiratory normal respiratory effort, lungs clear to auscultation Cardiovascular RRR, no murmur, no edema Gastrointestinal (Abdomen) Percussion/Palpation: + guarding (guarding in suprapubic area ) and abdomen soft gross blood at urethral metus Discharge Data Consultations 03/19/19 11:38 Consult Radiation Oncology Routine Procedures Performed Operation Date: 03/19/19 07:15 Actual Procedures p Cystoscopy, Right Stent Placement with Removal of Nephrostomy Tube(Not Applicable) - Janeth Kunz MD s Transurethral Resection of a Bladder Tumor,(Not Applicable) - Janeth Kunz MD Hospital Course (1) Gross hematuria: has resolved after tur of large bladder tumor. Will continue ditropan 5mg XL for bladder spasms int he post-op period. warned of dry mouth and constipation side effects. Will start radiation to prostate on Sunday. He will remove his silva tomorrow am at home. I have shown him how to cut the balloon port, allow balloon to drain then pull silva out slowly. He will resume macrobid at home for prior UTI. I suspect he will have some intermittent hematuria as he heals and he will return for clot obstruction to either office or ER will discharge home (2) Obstruction of right ureter: related to prostate cancer locally advanced and or metastatic . I have significantly debulked the trigone tumor we have converted him from a 10 fr nephroureteral stent to a internal double J 7 fr 26 centimeter stent. He is not draining any urine out his back at this time. He may take the dressing off and shower. we will need to change that stent every 4-6 months he will get radiation starting sunday to the tumor area Discharge Instructions foey out tomorrow at home
== END 2019-03-20 14:14 | disposition home or self-care (01) | DRG 715 ==
LOC: ED 19:18 → 3N 19:18

== ENCOUNTER 2019-04-22 13:17 | Inpatient (IN) ==
[2019-04-22 15:40] LABS: Basophils # (auto) 0.02 K/uL (0-0.2); Basophils % (auto) 0.3 %; Eosinophils # (auto) 0.29 K/uL (0-0.5); Eosinophils % (auto) 3.8 %; Hemoglobin 13.9 g/dL (14.0-18.0); Immature Granulocytes # (auto) 0.01 K/uL (0.00-0.02); Immature Granulocytes % (auto) 0.1 %; Lymphocytes # (auto) 0.87 K/uL (1.2-3.4); Lymphocytes % (auto) 11.3 %; Mean Corpuscular Hemoglobin 29.9 pg (25-34); Mean Corpuscular Hgb Conc 33.1 g/dL (32-36); Mean Corpuscular Volume 90.3 fL (80-100); Monocytes # (auto) 0.85 K/uL (0.11-0.59); Monocytes % (auto) 11.1 %; Neutrophils # (auto) 5.64 K/uL (1.4-6.5); Neutrophils % (auto) 73.4 %; Platelet Count 218 K/uL (130-400); RDW Coefficient of Variation 14.2 % (11.5-14.5); RDW Standard Deviation 46.7 fL (36.4-46.3); Red Blood Count 4.65 M/uL (4.7-6.1); White Blood Count 7.68 K/uL (4.8-10.8)
[2019-04-22 15:41] LABS: Appearance Urine Cloudy (Clear); Bacteria Urine Automated Negative (Negative); Blood Urine 3+ (Negative); Color Urine Orange; Epithelial Cell Urine Auto >30 /lpf (0-5); Glucose Urine UA Negative (Negative); Ketones Urine Negative (Negative); Leukocyte Esterase Urine 1+ (Negative); Nitrite Urine Positive (Negative); Protein Urine 3+ (Negative); RBC Urine Automated >30 /hpf (0-4); Specific Gravity Urine 1.029 (1.000-1.030); Urobilinogen Urine Negative (Negative); WBC Urine Automated >30 /hpf (0-5)
[2019-04-22 15:42] LABS: Bilirubin Urine Negative (Negative); Ictotest Urine Negative (Negative); Sulfosalicylic Acid Urine Positive (Negative)
[2019-04-22 15:51] LABS: Renal Epithelial Cells Urine 0-5 /lpf (0-5)
[2019-04-22 16:00] LABS: Albumin Level 3.8 gm/dl (3.4-5.0); BUN Creatinine Ratio 15.7 (10-20); Calcium 9.3 mg/dl (8.5-10.1); Creatinine Clr Calc Pharmacy 61.4 ml/min; Est GFR (African American) 67.4; Est GFR (Non-African American) 58.2; Potassium 3.9 mmol/L (3.5-5.1)
[2019-04-22 16:03] LABS: Bilirubin,Total 0.5 mg/dl (0.2-1); Globulin 3.7 gm/dl (2.5-4.0); Total Protein 7.5 gm/dl (6.4-8.2)
--- NOTE | 2019-04-22 16:26 | Ultrasound Report ---
US renal/blad retro comp HISTORY: Flank pain severe r sided abd pain COMPARISON: None. FINDINGS: Right kidney: Maximum dimension 9.3 cm No evidence for hydronephrosis. Normal corticomedullary differentiation and cortical thickness. Proxi mal right ureteral stent in good position Left kidney: Dimension 11.6 cm. No evidence for hydronephrosis. Normal corticomedullary differentiation and cortic al thickness. Bladder: Moderate right lateral lateral wall thickening adjacent to the right ureteral stent. Possibl e debris surrounding the tip of the stent. IMPRESSION: 1. No evidence for renal hydronephrosis. 2. Right ureteral stent in good position. 3. Bladder wall thickening as well as soft tissue adjacent to the stent within the bladder. ACT 112: Negative or not required by law. The above report was generated using voice recognition software. It may contain grammatical, syntax or spelling errors. Electronically signed by: Justice Barreto M.D. 04/22/2019 4:25 PM
[2019-04-22] MEDS ORDERED: cefTRIAXone SODIUM 2,000 MG/70 ML BAG IV STA (16:31)
[2019-04-22] MEDS ORDERED: IOVERSOL 100ml IV PRN (17:29)
--- NOTE | 2019-04-22 17:48 | CT Scan Report ---
CT abd pelvis IV con only CT DOSE: 734.79 mGycm HISTORY: lipase 2000 lower pelvic pain w/ stent and uti TECHNIQUE: Multiaxial CT images of the abdomen and pelvis were performed following the use of intrave nous contrast. A dose lowering technique was utilized adhering to the principles of ALARA. COMPARISON STUDY: 03/20/2019 FINDINGS: Lung bases are clear. 4 mm nodule right base. Liver spleen and pancreas are unremarkable. T here is a right ureteral stent in good position. No evidence for hydronephrosis. Trace amount of periureteral fat stranding. This is similar compared to the prior exam. Mild bladder wall thickening considered unchanged. Mild chronic colonic diverticulosis. No evidence for acute diverticulitis. IMPRESSION: 1. Right ureteral stent in good position. 2. Trace amount of periureteral infiltrative change making exclusion of a urinary tract inflammatory process impossible to entirely exclude. 3. No evidence for abscess collection or obstruction. Area 4. Normal appendix. 5. Mild chronic colonic diverticulosis. ACT 112: Negative or not required by law. The above report was generated using voice recognition software. It may contain grammatical, syntax or spelling errors. Electronically signed by: Justice Barreto M.D. 04/22/2019 5:47 PM
[2019-04-22] MEDS ORDERED: HYDROmorphone INJ 1 MG/ML SYRINGE IV STA (18:01)
--- NOTE | 2019-04-22 20:11 | History & Physical Report ---
Date of Service April 22, 2019 Assessment & Plan (1) Complicated UTI (urinary tract infection): This is a 53yo M with a PMH of adenocarcinoma of prostate with bony mets s/p TURBT in Mar 2019, asthma, history of hepatitis C, CKD III and hypertension who presents with worsening urinary symptoms x1 week. -H/o TURBT in Mar 2019, as well as recent percutaneous nephrostomy tube (since removed) and placement of ureteral stent -Progressively worsening dysuria -Renal u/s shows that right ureteral stent is in good position and there is no hydronephrosis -UA is grossly abnormal. Started on Rocephin for empiric treatment of complicated UTI (2) Elevated lipase: Lipase elevated at 2111. Endorses mild right lower quadrant discomfort but denies nausea or vomiting. Has had no appetite change and is requesting dinner -Denies alcohol use or smoking. Likely elevated in setting of chemo medications (recently started on Xtandi 4 days ago, has been on Lupron) vs XRT -CT abd/pelvis without abnormality of pancreas -Trend lipase, IV fluids, diet as tolerated (3) Prostate cancer metastatic to bone: (4) S/P ureteral stent placement: Follows with Dr. Mann for prostate cancer treatment and completed r adiation 4 days ago as well as starting Xtandi. Also taking Lupron and Xgeva Q3M -Continue Xtandi HS -Continue oxybutynin, tamsulosin, silva in place (5) HTN (hypertension): Continue verapamil (6) Asthma: Stable. Continue albuterol PRN, Breo Ellipta DVT Ppx: SQ lovenox Code status: DNR per discussion with patient PCP: ROQUE Wallace Dispo: Admitted to med/surg. Plan to return home once medically stable. Patient seen in collaboration with Dr. Martinez. Please see addendum. History of Present Illness Chief Complaint: Complicated UTI Primary Care Provider: Arnoldo Wallace PA-C This is a 53yo M with a PMH of adenocarcinoma of prostate with bony mets s/p TURBT in Mar 2019, asthma, history of hepatitis C, CKD III and hypertension who presents with worsening urinary symptoms x1 week. Patient follows with Dr. Mann for prostate cancer treatment and completed radiation 4 days ago as well as starting Xtandi. Is also taking Lupron and Xgeva Q3M. Has been following with Dr. Kunz as well, with recent percutaneous nephrostomy tube and placement of ureteral stent. Over the past week, patient has had progressively worsening dysuria. Was concerned that stent was out of place so came to ED for further evaluation. Renal ultrasound shows that right ureteral stent is in good position and there is no hydronephrosis. UA is grossly abnormal. Started on Rocephin for empiric treatment of complicated UTI. Also noted to have elevated lipase of 2111. Endorses mild right lower quadrant discomfort but denies nausea or vomiting. Has had no appetite change. Denies fever, chills, lightheadedness, visual changes, chest pain, palpitations, shortness of breath, diarrhea or constipation. Allergies Allergy/AdvReac Type Severity Reaction Status Date / Time aminophylline Allergy Intermediate PASSES Verified 04/22/19 16:31 OUT, HIVES Penicillins Allergy Intermediate passes Verified 04/22/19 16:31 out, hives as a child sulfamethoxazole Allergy Intermediate Hives Verified 04/22/19 16:31 [From Bactrim] trimethoprim [From Bactrim] Allergy Intermediate Hives Verified 04/22/19 16:31 Home Medications Home Medications Medication Instructions Recorded Confirmed Type albuterol sulfate 2 puff INHALATION QID PRN 02/24/19 04/22/19 History tamsulosin 0.4 mg PO BID 02/24/19 04/22/19 History verapamil 180 mg PO HS 02/24/19 04/22/19 History ondansetron 4 mg PO Q8H PRN 03/18/19 04/22/19 History morphine 30 mg capsule,extended 30 mg PO Q12H cap 04/14/19 04/22/19 History release 24 hr multiphase acetaminophen 650 mg PO Q6H PRN 04/22/19 04/22/19 History cholecalciferol (vitamin D3) 1,000 unit PO QAM 04/22/19 04/22/19 History [Vitamin D3] denosumab [Xgeva] 120 mg SUBCUT Q3M 04/22/19 04/22/19 History enzalutamide [Xtandi] 160 mg PO HS 04/22/19 04/22/19 History fluticasone furoate-vilanterol 1 inh INHALATION DAILY 04/22/19 04/22/19 History [Breo Ellipta] leuprolide (3 month) [Lupron [place] 0 mg IM Q3M 04/22/19 04/22/19 History (3 month)] naproxen sodium 220 mg PO BIDM PRN 04/22/19 04/22/19 History nitrofurantoin monohyd/m-cryst 100 mg PO Q12H 04/22/19 04/22/19 History oxybutynin chloride [Ditropan XL] 5 mg PO DAILY 04/22/19 04/22/19 History phenazopyridine 100 mg PO TID PRN 04/22/19 04/22/19 History tramadol 50 mg PO Q6H PRN 04/22/19 04/22/19 History vitamin E 1,000 unit PO QAM 04/22/19 04/22/19 History Past Med/Surg History Medical History (Updated 04/22/19 @ 20:23 by Jasmyn Escamilla PA-C) Asthma (Chronic) BRONCHIAL ASTHMA (HAS NOT USED RESCUE INHALER FOR A WHILE) Chronic hepatitis C (Chronic) TREATED AND NO LONGER TEST + Dyslipidemia (Chronic) GERD (gastroesophageal reflux disease) HTN (hypertension) (Chronic) 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 Migraine Osteoarthritis Portal hypertension (Chronic) Prostate cancer metastatic to bone (Chronic) STAGE 4 Surgical History History of carpal tunnel surgery (Chronic) History of colonoscopy (Chronic) History of esophagogastroduodenoscopy (EGD) History of open reduction and internal fixation (ORIF) procedure RT ARM History of surgery NEPHROSTOMY TUBE IN PLACE (PLACE FLUSING) History of tonsillectomy S/P ureteral stent placement [place] teeth removed Family History Other Cancer Diabetes Social History Preferred Language: Albanian Communication Ability: 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 Physical Exam Physical Exam: General Appearance: WD/WN, vitals as above, NAD, appears chronically ill, pleasant, conversing easily Head: normocephalic, atraumatic Eyes: normal inspection, PERRL, conjunctivae normal, anicteric sclerae ENT: external ear and nose normal, oropharynx normal Neck: trachea midline, no thyromegaly normal visual inspection Respiratory: lungs clear to auscultation, no wheeze, rales, rhonchi. Normal insp/exp effort, no accessory muscle use Cardiovascular: regular rate, rhythm, no murmur, normal peripheral pulses. Vessels: no JVD or carotid bruit Chest: normal inspection of chest Abdomen/GI: normal bowel sounds, soft, nontender, no hepatosplenomegaly Extremities/Musculoskelatal: no cyanosis or clubbing, extremities motor strength 5/5 : Silva in place draining light yellow urine Neurologic: PERRL, EOMI, accommodation nl, no face palsy, no dysarthria, CN's II-XI intact bilaterally and moves all extremities Psychiatric: A+Ox3, euthymic affect Skin: no rashes, normal color, warm/dry Results & Data Vital Signs (Past 12 Hours) Vital Signs Temp Pulse Pulse Resp BP BP Pulse Ox 04/22/19 19:11 75 17 164/88 H 95 04/22/19 16:25 72 17 97 04/22/19 15:34 95 04/22/19 13:20 36.8 C 72 20 135/72 98 Laboratory Results Short CBC 04/22/19 Range/Units 15:27 WBC 7.68 (4.8-10.8) K/uL Hgb 13.9 L (14.0-18.0) g/dL Hct 42.0 (42-52) % Plt Count 218 (130-400) K/uL BMP 04/22/19 15:27 Sodium 139 Potassium 3.9 Chloride 110 H Carbon Dioxide 24 BUN 21 H Creatinine 1.36 Glucose 94 Calcium 9.3 Liver Function 04/22/19 Range/Units 15:27 Total Bilirubin 0.5 (0.2-1) mg/dl AST 9 L (15-37) U/L ALT 23 (12-78) U/L Alkaline Phosphatase 53 (45-117) U/L Albumin 3.8 (3.4-5.0) gm/dl Urine 04/22/19 Range/Units 15:27 Urine Color [place] Urine Appearance Cloudy A (Clear) Urine pH 5.0 (4.5-7.5) Ur Specific [place] 1.029 (1.000-1.030) Urine Protein 3+ H (Negative) Urine Glucose (UA) Negative (Negative) Diagnostic Findings Renal ultrasound: IMPRESSION: 1. No evidence for renal hydronephrosis. 2. Right ureteral stent in good position. 3. Bladder wall thickening as well as soft tissue adjacent to the stent within the bladder. CT abd/pelvis: IMPRESSION: 1. Right ureteral stent in good position. 2. Trace amount of periureteral infiltrative change making exclusion of a urinary tract inflammatory process impossible to entirely exclude. 3. No evidence for abscess collection or obstruction. Area 4. Normal appendix. 5. Mild chronic colonic diverticulosis. Code Status & VTE Plan VTE Prophylaxis Plan VTE Prophylaxis will be ordered: Yes Supervising Physician Co-Signing Physician Notes Pt was seen and examined. Agreed with Jasmyn NEVAREZ exam, assessment and plan. 53yo M with a PMH of adenocarcinoma of prostate with bony mets s/p TURBT, asthma, history of hepatitis C, CKD III and hypertension who presents to the ER with c/o dysuria. Pt said that for about a weak he has been having burning sensation during urination. He said that he had abdominal discomfort that improved in the ER after getting pain med. Denies any chest pain, palpitation, dizziness and SOB. CT abd/pelvis showed no evidence for renal hydronephrosis. Right ureteral stent in good position. CT abd/pelvis showed right ureteral stent in good position. UA positive for leukocytes and nitrites. Received Rocephin IV in the ER. Continue abx with rocephin. Will follow urine cx . Continue Pyridium prn for bladder spasm. Continue monitor closely. MD Juan
--- NOTE | 2019-04-22 20:22 | Emergency Department Note ---
Entered by Stacie Souza acting as a scribe for Mickey Jenkins DO History of Present Illness General Chief complaint: Urinary Symptoms Stated complaint: SENT BY BREEZY BLOCKED STENT IN BLADDER,KIDNEY-CA Time Seen by Provider: 04/22/19 14:49 History of Present Illness Provider complaint: urinary symptoms Onset (ago): week(s) 1 Location: genitals Maximum Pain Intensity: 8 Quality: + other (urinary symptoms) Exacerbated By: + other (Abdominal pain due to urination) Associated symptoms: + other (Positive dysuria; Negative rhinorrhea; ); no chest pain and no cough Treatments prior to arrival: other (Morphine) The patient, who is a 53 year old male with a medical history of sepsis, UTI and hypertension, presents to the Emergency Room with complaints of urinary symptoms that is worsening for the past week. The patient expresses that he still has a urinating sensation after going to the bathroom. The patient confirms that he is having urinary burning and pain. The patient expresses that he is having pain during bowel movements which may be due to strain. The patient expresses low abdominal pain. The patient notes that his abdominal pain is exacerbated while urinating. The patient denies cough, rhinorrhea or chest pain. The patient expresses that the he is still able to walk. The patient states that he is concerned with a right urethral stent placement. The patient reports that the he has recently completed his radiation and is now on chemotherapy medication. The patient reports taking a dose of morphine prior to arrival. Home Medications Home Medications Medication Instructions Recorded Confirmed Type albuterol sulfate 2 puff INHALATION QID PRN 02/24/19 04/22/19 History tamsulosin 0.4 mg PO BID 02/24/19 04/22/19 History verapamil 180 mg PO HS 02/24/19 04/22/19 History ondansetron 4 mg PO Q8H PRN 03/18/19 04/22/19 History morphine 30 mg capsule,extended 30 mg PO Q12H cap 04/14/19 04/22/19 History release 24 hr multiphase acetaminophen 650 mg PO Q6H PRN 04/22/19 04/22/19 History cholecalciferol (vitamin D3) 1,000 unit PO QAM 04/22/19 04/22/19 History [Vitamin D3] denosumab [Xgeva] 120 mg SUBCUT Q3M 04/22/19 04/22/19 History enzalutamide [Xtandi] 160 mg PO HS 04/22/19 04/22/19 History fluticasone furoate-vilanterol 1 inh INHALATION DAILY 04/22/19 04/22/19 History [Breo Ellipta] leuprolide (3 month) [Lupron Depot 0 mg IM Q3M 04/22/19 04/22/19 History (3 month)] naproxen sodium 220 mg PO BIDM PRN 04/22/19 04/22/19 History nitrofurantoin monohyd/m-cryst 100 mg PO Q12H 04/22/19 04/22/19 History oxybutynin chloride [Ditropan XL] 5 mg PO DAILY 04/22/19 04/22/19 History phenazopyridine 100 mg PO TID PRN 04/22/19 04/22/19 History tramadol 50 mg PO Q6H PRN 04/22/19 04/22/19 History vitamin E 1,000 unit PO QAM 04/22/19 04/22/19 History Allergies Allergy/AdvReac Type Severity Reaction Status Date / Time aminophylline Allergy Intermediate PASSES Verified 04/22/19 16:31 OUT, HIVES Penicillins Allergy Intermediate passes Verified 04/22/19 16:31 out, hives as a child sulfamethoxazole Allergy Intermediate Hives Verified 04/22/19 16:31 [From Bactrim] trimethoprim [From Bactrim] Allergy Intermediate Hives Verified 04/22/19 16:31 Past Med/Surg History Surgical History History of carpal tunnel surgery (Chronic) History of colonoscopy (Chronic) History of esophagogastroduodenoscopy (EGD) History of open reduction and internal fixation (ORIF) procedure RT ARM History of surgery NEPHROSTOMY TUBE IN PLACE (PLACE FLUSING) History of tonsillectomy S/P ureteral stent placement [place] teeth removed Family History Other Cancer Diabetes Social History Preferred Language: Maltese Communication Ability: Effective Tow Motor Mechanic Required: No Beliefs That Will Affect Care: None marital status: Single Current Living Situation: Alone Feels Safe at Home: Yes Smoking Status: Former smoker Tobacco Type: cigarettes and smokeless tobacco ; Second Hand Exposure: Yes ; Hx Alcohol Use: No Hx Substance Use: No Review of Systems See HPI for pertinent positives & negatives. and A total of 10 systems reviewed and were otherwise negative Physical Exam Vital Signs Vital Signs - 24 hr 04/22/19 13:20 04/22/19 15:34 04/22/19 16:25 Temperature 36.8 C Temperature Source Oral Pulse Rate 72 Pulse Rate [Finger] 72 Respiratory Rate 20 17 Respiratory Effort / Characteristics Non-Labored Respiratory Depth Normal Blood Pressure 135/72 Blood Pressure [Right Arm] Blood Pressure Mean 93 Blood Pressure Mean [Right Arm] Pulse Oximetry 98 95 97 Oxygen Delivery Method Room Air Room Air Room Air Sepsis Recent Fever Within 48 Hours No Sepsis Action Taken by Nursing No Action Required 04/22/19 19:11 Temperature Temperature Source Pulse Rate Pulse Rate [Finger] 75 Respiratory Rate 17 Respiratory Effort / Characteristics Respiratory Depth Blood Pressure Blood Pressure [Right Arm] 164/88 H Blood Pressure Mean Blood Pressure Mean [Right Arm] 113 Pulse Oximetry 95 Oxygen Delivery Method Room Air Sepsis Recent Fever Within 48 Hours Sepsis Action Taken by Nursing GENERAL: alert, well appearing, well nourished, non-toxic, sitting up in bed, moderate distress, holding lower abdomen EYE EXAM: normal conjunctiva OROPHARYNX: no exudate, no erythema, lips, buccal mucosa, and tongue normal and mucous membranes are moist NECK: supple, no nuchal rigidity, no adenopathy, non-tender LUNGS: Clear to auscultation. Normal chest wall mechanics HEART: no murmurs, S1 normal and S2 normal ABDOMEN: abdomen soft, moderate distress in periumbilical to inferior umbilical, region normo-active bowel sounds, no masses, no rebound or guarding. BACK: Back is symmetrical on inspection and there is no deformity, no midline tenderness, no CVA tenderness. : Normal external genitalia SKIN: no rashes and no bruising UPPER EXTREMITIES: upper extremities are grossly normal. LOWER EXTREMITIES: No pitting edema. NEURO EXAM: Normal sensorium, cranial nerves II-XII grossly intact, normal speech, no gross weakness of arms, no gross weakness of legs. Course Course ED COURSE: Vital signs were reviewed and showed hypertensive The patients medical record was reviewed The above diagnostic studies were performed and reviewed. ED treatments and interventions as stated above. 1459: The patient was evaluated in room B6. A complete history and physical examination was performed. 1645: I reviewed the patient's case with Dr. Kunz, Urologist. She states th at he does not look septic and we can send him home on oral antibiotics and offer Lu for 1 to 2 days. She states that the patient can follow up on the 15 of May if he is ok to discharge. 182: I reviewed the patient's case with Dr. Santa Scales PA-C. Dr[facility]. 182: Upon reevaluation, the patient is resting.I discussed my findings with the patient and him understands and agrees with the treatment plan. Based on the patients age, coexisting illnesses, exam and lab findings the decis ion to treat as an inpatient was made. The patient remained stable while under my care. The patient will be evaluated for further management. Consultations Consultation #1: I reviewed the patient's case with Dr. Kunz, Urologist. She states that he does not look septic and we can send him home on oral antibiotics and offer Lu for 1 to 2 days. She states that the patient can follow up on the 15 of May if he is ok to discharge. Time: 16:45 Consultation #2: I reviewed the patient's case with ANGELES Sousa. Dr. Haines [facility] will evaluate the patient for further management. Time: 18:21 Administered Medications Ioversol (Optiray 320 100ml) 93 ml IV ONCE PRN PRN Reason: Interaction Checking Stop: 04/26/19 17:28 Last Admin: 04/22/19 17:29 Dose: 93 ml Documented by: [id number] Discontinued Medications Hydromorphone HCl (Dilaudid) 1 mg IV NOW STA Stop: 04/22/19 18:02 Last Admin: 04/22/19 18:06 Dose: 1 mg Documented by: [id number] Ceftriaxone Sodium (Rocephin) 2,000 mg in 70 mls @ 140 mls/hr IV NOW STA Stop: 04/22/19 17:00 Last Infusion: 04/22/19 17:49 Dose: 0 mls/hr Documented by: [id number] Admin: 04/22/19 17:19 Dose: 140 mls/hr Documented by: [id number] Medical Decision Making Differential Diagnosis Differential diagnoses includes but is not limited to gastritis, peptic ulcer disease, GERD, gallbladder disease, pancreatitis, small bowel obstruction, acute coronary syndrome, pericarditis, ischemic bowel, irritable bowel disease, irritable bowel syndrome, appendicitis, diverticulitis, malignancy, hernia, urinary tract infection, torsion, perforation, trauma, infectious. Medical Records Attestation: I reviewed the patient's medical records. Home Medications Current Medication List: was personally reviewed by me Laboratory Data Attestation: I reviewed the patient's lab results. Result diagrams: 04/22/19 15:27 04/22/19 15:27 Lab Results 04/22/19 04/22/19 04/22/19 Range/Units 15:27 15:27 15:27 WBC 7.68 (4.8-10.8) K/uL RBC 4.65 L (4.7-6.1) M/uL Hgb 13.9 L (14.0-18.0) g/dL Hct 42.0 (42-52) % MCV 90.3 (80-100) fL MCH 29.9 (25-34) pg MCHC 33.1 (32-36) g/dL RDW Std Deviation 46.7 H (36.4-46.3) fL RDW Coeff of Shanita 14.2 (11.5-14.5) % Plt Count 218 (130-400) K/uL MPV 10.0 (7.4-10.4) fL Immature Gran % (Auto) 0.1 % Neut % (Auto) 73.4 % Lymph % (Auto) 11.3 % [place] % (Auto) 11.1 % Eos % (Auto) 3.8 % Baso % (Auto) 0.3 % Immature Gran # (Auto) 0.01 (0.00-0.02) K/uL Neut # (Auto) 5.64 (1.4-6.5) K/uL Lymph # (Auto) 0.87 L (1.2-3.4) K/uL [place] # (Auto) 0.85 H (0.11-0.59) K/uL Eos # (Auto) 0.29 (0-0.5) K/uL Baso # (Auto) 0.02 (0-0.2) K/uL Sodium 139 (136-145) mmol/L Potassium 3.9 (3.5-5.1) mmol/L Chloride 110 H (98-107) mmol/L Carbon Dioxide 24 (21-32) mmol/L Anion Gap 5.0 (3-11) BUN 21 H (7-18) mg/dl Creatinine 1.36 (0.6-1.4) mg/dl Est Cr Clr Drug Dosing 61.4 ml/min Est GFR ( Amer) 67.4 Est GFR (Non-Af Amer) 58.2 BUN/Creatinine Ratio 15.7 (10-20) Glucose 94 (70-99) mg/dl Calcium 9.3 (8.5-10.1) mg/dl Total Bilirubin 0.5 (0.2-1) mg/dl AST 9 L (15-37) U/L ALT 23 (12-78) U/L Alkaline Phosphatase 53 (45-117) U/L Total Protein 7.5 (6.4-8.2) gm/dl Albumin 3.8 (3.4-5.0) gm/dl Globulin 3.7 (2.5-4.0) gm/dl Albumin/Globulin Ratio 1.0 (0.9-2) Lipase 2111 H (73-393) U/L Urine Color [place] Urine Appearance Cloudy A (Clear) Urine pH 5.0 (4.5-7.5) Ur Specific [place] 1.029 (1.000-1.030) Urine Protein 3+ H (Negative) Urine Glucose (UA) Negative (Negative) Urine Ketones Negative (Negative) Urine Blood 3+ H (Negative) Urine Nitrite Positive A (Negative) Urine Bilirubin Negative (Negative) Urine Urobilinogen Negative (Negative) Ur Leukocyte Esterase 1+ H (Negative) Urine WBC (Auto) >30 H (0-5) /hpf Urine RBC (Auto) >30 H (0-4) /hpf U Hyaline Cast (Auto) 1-5 (0-5) /lpf U Epithel Cells (Auto) >30 H (0-5) /lpf Urine Bacteria (Auto) Negative (Negative) Ur Renal Epithelial Cell 0-5 (0-5) /lpf Imaging Data Radiologist's Impression: Radiology results as stated below per my review and the radiologist's interpretation: US renal/blad retro comp HISTORY: Flank pain severe r sided abd pain COMPARISON: None. FINDINGS: Right kidney: Maximum dimension 9.3 cm No evidence for hydronephrosis. Normal corticomedullary differentiation and cortical thickness. Proximal right ureteral stent in good position Left kidney: Dimension 11.6 cm. No evidence for hydronephrosis. Normal corticomedullary differentiation and cortical thickness. Bladder: Moderate right lateral lateral wall thickening adjacent to the right ureteral stent. Possible debris surrounding the tip of the stent. IMPRESSION: 1. No evidence for renal hydronephrosis. 2. Right ureteral stent in good position. 3. Bladder wall thickening as well as soft tissue adjacent to the stent within the bladder. ACT 112: Negative or not required by law. The above report was generated using voice recognition software. It may contain grammatical, syntax or spelling errors. Electronically signed by: Justice Barreto M.D. 04/22/2019 4:[address] abd pelvis IV con only CT DOSE: 734.79 mGycm HISTORY: lipase 2000 lower pelvic pain w/ stent and uti TECHNIQUE: Multiaxial CT images of the abdomen and pelvis were performed following the use of intravenous contrast. A dose lowering technique was utilized adhering to the principles of ALARA. COMPARISON STUDY: 03/20/2019 FINDINGS: Lung bases are clear. 4 mm nodule right base. Liver spleen and pancreas are unremarkable. There is a right ureteral stent in good position. No evidence for hydronephrosis. Trace amount of periureteral fat stranding. This is similar compared to the prior exam. Mild bladder wall thickening considered unchanged. Mild chronic colonic diverticulosis. No evidence for acute diverticulitis. IMPRESSION: 1. Right ureteral stent in good position. 2. Trace amount of periureteral infiltrative change making exclusion of a urinary tract inflammatory process impossible to entirely exclude. 3. No evidence for abscess collection or obstruction. Area 4. Normal appendix. 5. Mild chronic colonic diverticulosis. ACT 112: Negative or not required by law. The above report was generated using voice recognition software. It may contain grammatical, syntax or spelling errors. Electronically signed by: Justice Barreto M.D. 04/22/2019 5:47 PM Blood Pressure Blood Pressure Findings: Elevated blood pressure Blood Pressure Disposition: further management by hospitalist [facility] Narrative The patient, who is a 53 year old male with a medical history of sepsis, UTI and hypertension, presents to the Emergency Room with complaints of urinary symptoms that is worsening for the past week. Patient has a history of bladder cancer with surgery performed by Dr. Kunz with a nephrostomy drain which was converted to a ureteral stent. He notes the pain is been worse over the past week. He has significant pain with urination and any kind of bowel movement. He has had chemo and radiation. He was established blood work was obtained and shows no significant leukocytosis or anemia. BMP along with LFTs bilirubin was unremarkable. Lipase of 2000. Patient was tender periumbilically and infraumbilically. UA had nitrates wbcs, leuks and was contaminated with epithelial cells. Case was discussed by the resident with Dr. Kunz who recommended Bactrim and the Lu for 2 days and can follow-up as an outpatient if well enough. Patient was given IV Rocephin and IV Dilaudid. Ultrasound showed no significant hydro-. With lipase of [address] tender perium[address] CT abdomen pelvis was performed and without inflammation of the pancreas. There was jaqueline-ureter inflammation consistent with a possible UTI versus postop inflammation. Patient was updated bedside discussed with the hospitalist for observation due to lipase of 2000, UTI and severe pain. Lu was placed. Impression & Plan Abdominal pain, Pancreatitis, Complicated UTI (urinary tract infection) Discharge Plan Visit Data Chief Complaint: Urinary Symptoms Stated Complaint: SENT BY BREEZY BLOCKED STENT IN BLADDER,KIDNEY-[place] ED Provider: Mickey Jenkins ED Midlevel Provider: Allan Chaidez Discharge Problem: Abdominal pain, Pancreatitis, Complicated UTI (urinary tract infection) Forms Stand Alone Forms: [facility] [employer] Prescriptions Prescriptions: No Action morphine 30 mg capsule, ER multiphase 24 hr 30 mg PO Q12H RF: 0 acetaminophen 325 mg Tablet 650 mg PO Q6H PRN (Reason: Pain) RF: 0 tramadol 50 mg tablet 50 mg PO Q6H PRN (Reason: Pain) RF: 0 nitrofurantoin monohyd/m-cryst 100 mg capsule 100 mg PO Q12H RF: 0 naproxen sodium 220 mg Capsule 220 mg PO BIDM PRN (Reason: Pain) RF: 0 Xtandi 40 mg Capsule 160 mg PO HS RF: 0 Breo Ellipta 200-25 mcg/dose blister with device 1 inh INHALATION DAILY RF: 0 vitamin E 1,000 unit Capsule 1,000 unit PO QAM RF: 0 Lupron Depot (3 month) 22.5 mg Syringe Kit 0 mg IM Q3M RF: 0 cholecalciferol (vitamin D3) [Vitamin D3] 25 mcg (1,000 unit) Capsule 1,000 unit PO QAM RF: 0 oxybutynin chloride [Ditropan XL] 5 mg tablet extended release 24hr 5 mg PO DAILY RF: 0 phenazopyridine 100 mg Tablet 100 mg PO TID PRN (Reason: pain with urination ) RF: 0 Xgeva 120 mg/1.7 mL (70 mg/mL) Solution 120 mg subcut Q3M RF: 0 verapamil 180 mg tablet extended release 180 mg PO HS RF: 0 tamsulosin 0.4 mg capsule 0.4 mg PO BID RF: 0 albuterol sulfate 90 mcg/actuation Hfa Aerosol Inhaler 2 puff INHALATION QID PRN (Reason: Shortness Of Breath Or Wheezing) RF: 0 ondansetron 4 mg tablet,disintegrating 4 mg PO Q8H PRN (Reason: Nausea) RF: 0 Discharge Problem: Abdominal pain Qualifiers: Abdominal location: periumbilical Qualified Code(s): R10.33 - Periumbilical pain Pancreatitis Qualifiers: Chronicity: acute Pancreatitis type: unspecified pancreatitis type Acute pancreatitis complication: unspecified Qualified Code(s): K85.90 - Acute pancreatitis without necrosis or infection, unspecified The scribe's documentation has been prepared under my direction and personally reviewed by me in its entirety. I confirm that the note above accurately reflects all work, treatment, procedures, and medical decision making performed by me.
[2019-04-22] MEDS ORDERED: ALBUTEROL HFA 8 GM INHALER INH PRN (20:39)
[2019-04-22] MEDS ORDERED: TRAMADOL HCL 50 MG TABLET PO PRN (20:39)
[2019-04-22] MEDS ORDERED: ACETAMINOPHEN 325 MG TAB PO PRN (20:39)
[2019-04-22] MEDS ORDERED: POLYETHYLENE (MIRALAX) 17 GM PACK PO PRN (20:39)
[2019-04-22] MEDS: SODIUM CHLORIDE 0.9% 1000ML 1,000 ML IV SCH (21:29)
[2019-04-22] MEDS ORDERED: NAPROXEN 250 MG TAB PO PRN (21:33)
[2019-04-22] MEDS: TAMSULOSIN HCL 0.4 MG CAP PO SCH (22:14)
[2019-04-22] MEDS: VERAPAMIL HCL 180 MG TABCR PO SCH (22:14)
[2019-04-22] MEDS: ENOXAPARIN INJ 40 MG/0.4 ML SYR SQ SCH (22:15)
[2019-04-22] MEDS: MoRPHine SULFATE CR 15 MG TABCR PO SCH (22:18)
[2019-04-22] MEDS: PROMETHAZINE HCL 12.5 MG in SODIUM CHLORIDE 0.9% 50 ML IV PRN (23:41)
[2019-04-23] MEDS: SODIUM CHLORIDE 0.9% 1000ML 1,000 ML IV SCH ×2 (05:24→12:57)
[2019-04-23 05:45] LABS: Hematocrit (blood only) 41.5 % (42-52); Hemoglobin 13.4 g/dL (14.0-18.0); Mean Corpuscular Hemoglobin 29.8 pg (25-34); Mean Corpuscular Hgb Conc 32.3 g/dL (32-36); Mean Corpuscular Volume 92.2 fL (80-100); Platelet Count 204 K/uL (130-400); RDW Coefficient of Variation 14.3 % (11.5-14.5); RDW Standard Deviation 47.7 fL (36.4-46.3); White Blood Count 6.76 K/uL (4.8-10.8)
[2019-04-23 06:22] LABS: Albumin Level 3.4 gm/dl (3.4-5.0); BUN Creatinine Ratio 13.3 (10-20); Calcium 8.2 mg/dl (8.5-10.1); Creatinine Clr Calc Pharmacy 62.3 ml/min; Est GFR (African American) 68.6; Est GFR (Non-African American) 59.2; Potassium 3.8 mmol/L (3.5-5.1)
[2019-04-23 06:25] LABS: Albumin Globulin Ratio 1.1 (0.9-2); Bilirubin,Total 0.5 mg/dl (0.2-1); Total Protein 6.4 gm/dl (6.4-8.2)
[2019-04-23] MEDS: CHOLECALCIFEROL 1,000 UNITS TAB PO SCH (08:23)
[2019-04-23] MEDS: TAMSULOSIN HCL 0.4 MG CAP PO SCH ×2 (08:23→20:30)
[2019-04-23] MEDS: MoRPHine SULFATE CR 15 MG TABCR PO SCH ×2 (08:23→20:34)
[2019-04-23] MEDS: OXYBUTYNIN CHLORIDE XL 5 MG TABCR PO SCH (08:23)
[2019-04-23] MEDS: PHENAZOPYRIDINE HCL 100 MG TAB PO PRN ×2 (08:23→15:19)
[2019-04-23] MEDS: cefTRIAXone SODIUM 2,000 MG in DEXTROSE 5% 50 ML IV SCH (17:07)
[2019-04-23] MEDS: ENZALUTAMIDE PO SCH (19:39)
[2019-04-23] MEDS: FLUTICASONE/SALMETEROL (ADVAIR) 500/50 INH 14 PUFF INH SCH ×2 (20:30→20:32)
[2019-04-23] MEDS: VERAPAMIL HCL 180 MG TABCR PO SCH (20:31)
[2019-04-23] MEDS: ENOXAPARIN INJ 40 MG/0.4 ML SYR SQ SCH (21:03)
[2019-04-24] MEDS: PHENAZOPYRIDINE HCL 100 MG TAB PO PRN ×3 (00:03→16:11)
[2019-04-24 06:24] LABS: Hematocrit (blood only) 39.1 % (42-52); Hemoglobin 12.6 g/dL (14.0-18.0); Mean Corpuscular Hemoglobin 29.3 pg (25-34); Mean Corpuscular Hgb Conc 32.2 g/dL (32-36); Mean Corpuscular Volume 90.9 fL (80-100); Mean Platelet Volume 10.2 fL (7.4-10.4); Platelet Count 207 K/uL (130-400); RDW Coefficient of Variation 14.3 % (11.5-14.5); RDW Standard Deviation 46.8 fL (36.4-46.3); White Blood Count 5.69 K/uL (4.8-10.8)
[2019-04-24 06:54] LABS: Albumin Level 3.6 gm/dl (3.4-5.0); Calcium 8.3 mg/dl (8.5-10.1); Creatinine Clr Calc Pharmacy 58.8 ml/min; Est GFR (Non-African American) 55.2; Potassium 3.6 mmol/L (3.5-5.1)
[2019-04-24 06:57] LABS: Albumin Globulin Ratio 1.1 (0.9-2); Bilirubin,Total 0.4 mg/dl (0.2-1); Globulin 3.4 gm/dl (2.5-4.0)
[2019-04-24] MEDS: FLUTICASONE/SALMETEROL (ADVAIR) 500/50 INH 14 PUFF INH SCH ×2 (07:49→20:58)
[2019-04-24] MEDS: CHOLECALCIFEROL 1,000 UNITS TAB PO SCH (07:50)
[2019-04-24] MEDS: TAMSULOSIN HCL 0.4 MG CAP PO SCH ×2 (07:50→20:59)
[2019-04-24] MEDS: OXYBUTYNIN CHLORIDE XL 5 MG TABCR PO SCH (07:50)
[2019-04-24] MEDS: MoRPHine SULFATE CR 15 MG TABCR PO SCH ×2 (07:52→20:59)
[2019-04-24] MEDS: cefTRIAXone SODIUM 2,000 MG in DEXTROSE 5% 50 ML IV SCH (18:32)
[2019-04-24] MEDS: PROMETHAZINE HCL 12.5 MG in SODIUM CHLORIDE 0.9% 50 ML IV PRN (18:39)
[2019-04-24] MEDS: ENZALUTAMIDE PO SCH (19:01)
[2019-04-24] MEDS: VERAPAMIL HCL 180 MG TABCR PO SCH (20:59)
[2019-04-24] MEDS: ENOXAPARIN INJ 40 MG/0.4 ML SYR SQ SCH (20:59)
--- NOTE | 2019-04-24 22:31 | Hospitalist Progress Note ---
Date of Service April 23, 2019 (late entry) Assessment & Plan (1) Complicated UTI (urinary tract infection): Dysuria and bladder spasms in the setting of prostate ca 53yo M with a PMH of adenocarcinoma of prostate with bony mets s/p TURBT in Mar 2019, asthma, history of hepatitis C, CKD III and hypertension who presents with worsening urinary symptoms x1 week. -H/o TURBT in Mar 2019, as well as recent percutaneous nephrostomy tube (since removed) and placement of ureteral stent -presented with Progressively worsening dysuria -Renal u/s shows that right ureteral stent is in good position and there is no hydronephrosis -UA is grossly abnormal. Started on Rocephin for empiric treatment of complicated UTI -urine culture no growth last urine culture on 02/2019 was staph aureus MSSA was treated with Nitrofurantoin ( pt is allergic to sulfa and PCN ) may need continued tx with Nitrofurantoin on discharge Dr. Kunz, pt's urologist aware of pt veing in the ER yesterday and UA results, recommended Lu cath for 1-2 days for dysuria Flexeril and pyridium as needed (2) Elevated lipase: no complain of abdominal pain , no nausea /vomiting, tolerating diet Lipase elevated at 2111. -Denies abd. pain, nausea and vomiting, inquires about food -Denies alcohol use or smoking. Likely elevated in setting of chemo medications (recently started on Xtandi 4 days ago, has been on Lupron) vs XRT -CT abd/pelvis without abnormality of pancreas -will cont. to monitor (3) Prostate cancer metastatic to bone: (4) S/P ureteral stent placement: Follows with Dr. Mann for prostate cancer treatment and completed radiation 4 days ago as well as starting Xtandi. Also taking Lupron and Xgeva Q3M -Continue Xtandi HS (5) HTN (hypertension): Continue verapamil (6) Asthma: Stable. Continue albuterol PRN, Breo Ellipta DVT Ppx: SQ lovenox Code status: DNR per discussion with patient PCP: ROQUE Wallace Subjective Pt is walking around, says that he is more comfortable when he stands or walks. Denies any fever, chills, chest pain, shortness of breath, abd. pain, nausea or vomiting, Complains of dysuria nd bladder spasms. Dr. Kunz, pt's urologist, contacted in the ER yesterday, left a note, acknowledged pt had cystitis and recommended Lu catheter for 1-2 days. Review of Systems Review of Systems: All systems reviewed & are unremarkable except as noted in HPI & below At least ten systems reviewed and negative except as noted in the HPI. Constitutional: no fever and no chills Respiratory: no cough, no dyspnea and no pain on inspiration Cardiovascular: no chest pain, no palpitations and no edema Gastrointestinal: no abdominal pain, no nausea and no vomiting Genitourinary: + dysuria, + urinary frequency and + problem reported (severe bladder spasm ) Physical Exam Physical Exam: General Appearance: male pt, in no acute distress, walking around, w/ Lu cath. and IV NS infusion Head: normocephalic, atraumatic Eyes: EOMI, PERRL, conjunctivae normal, anicteric sclerae ENT: external ear and nose normal, oropharynx normal Neck: trachea midline, no thyromegaly normal visual inspection Respiratory: lungs clear to auscultation, no wheeze, rales, rhonchi. Normal insp/exp effort, no accessory muscle use Cardiovascular: regular rate, rhythm, no murmur, normal peripheral pulses. Vessels: no JVD or carotid bruit Chest: normal inspection of chest Abdomen/GI: normal bowel sounds, soft, nontender, no hepatosplenomegaly Extremities/MSK: no cyanosis or clubbing, extremities motor strength 5/5 : Lu in place draining pyridium colored urine Neurologic: PERRL, EOMI, accommodation nl, no face palsy, no dysarthria, and moves all extremities Psychiatric: A+Ox3, euthymic affect Skin: no rashes, normal color, warm/dry Results & Data Vital Signs (Past 12 Hours) Vital Signs Temp Pulse Resp BP Pulse Ox 04/24/19 19:11 36.6 C 68 20 140/79 04/24/19 15:10 36.8 C 69 18 126/78 96
--- NOTE | 2019-04-24 22:33 | Hospitalist Progress Note ---
Date of Service April 24, 2019 Assessment & Plan (1) Complicated UTI (urinary tract infection): Dysuria and bladder spasms in the setting of prostate ca 53yo M with a PMH of adenocarcinoma of prostate with bony mets s/p TURBT in Mar 2019, asthma, history of hepatitis C, CKD III and hypertension who presents with worsening urinary symptoms x1 week. -H/o TURBT in Mar 2019, as well as recent percutaneous nephrostomy tube (since removed) and placement of ureteral stent -presented with Progressively worsening dysuria -Renal u/s shows that right ureteral stent is in good position and there is no hydronephrosis -UA is grossly abnormal. Started on Rocephin for empiric treatment of complicated UTI -urine culture no growth last urine culture on 02/2019 was staph aureus MSSA was treated with Nitrofurantoin ( pt is allergic to sulfa and PCN ) may need continued tx with Nitrofurantoin on discharge Dr. Kunz, pt's urologist aware of pt's symptoms and UA results in the ER, recommended Lu cath for 1-2 days for dysuria - however pt's symptoms does not seem to be much improved despite Rocephin treatment and Lu cath placement, will contact Dr. Kunz for further input Flexeril and pyridium as needed (2) Elevated lipase: no complain of abdominal pain , no nausea /vomiting, tolerating diet Lipase elevated at 2111. -Denies abd. pain, nausea and vomiting, inquires about food -Denies alcohol use or smoking. Likely elevated in setting of chemo medications (recently started on Xtandi 4 days ago, has been on Lupron) vs XRT -CT abd/pelvis without abnormality of pancreas -will cont. to monitor - now lipase down to 121 (3) Prostate cancer metastatic to bone: (4) S/P ureteral stent placement: Follows with Dr. Mann for prostate cancer treatment and completed radiation 4 days ago as well as starting Xtandi. Also taking Lupron and Xgeva Q3M -Continue Xtandi HS (5) HTN (hypertension): Continue verapamil (6) Asthma: Stable. Continue albuterol PRN, Breo Ellipta DVT Ppx: SQ lovenox Code status: DNR per discussion with patient PCP: ROQUE Wallace Subjective Pt says that he is more comfortable when he stands or walks. Denies any fever, chills, chest pain, shortness of breath, abd. pain, nausea or vomiting. Complains of dysuria and bladder spasms. Dr. Kunz, pt's urologist, contacted in the ER on admission, left a note, acknowledged pt's UA results and recommended Lu catheter for 1-2 days. Review of Systems Review of Systems: At least ten systems reviewed and negative except as noted in the HPI. Genitourinary: + dysuria, + urinary frequency and + problem reported (severe bladder spasm ) Physical Exam Physical Exam: General Appearance: male pt, in no acute distress, standing up, w/ Lu cath placed Head: normocephalic, atraumatic Eyes: EOMI, PERRL, conjunctivae normal, anicteric sclerae ENT: external ear and nose normal, oropharynx normal Neck: trachea midline, no thyromegaly normal visual inspection Respiratory: lungs clear to auscultation, no wheeze, rales, rhonchi. Normal insp/exp effort, no accessory muscle use Cardiovascular: regular rate, rhythm, no murmur, normal peripheral pulses. Vessels: no JVD or carotid bruit Chest: normal inspection of chest Abdomen/GI: normal bowel sounds, soft, nontender, no hepatosplenomegaly Extremities/MSK: no cyanosis or clubbing, extremities motor strength 5/5 : Lu in place draining dark colored urine Neurologic: PERRL, EOMI, accommodation nl, no face palsy, no dysarthria, and moves all extremities Psychiatric: A+Ox3, euthymic affect Skin: no rashes, normal color, warm/dry Results & Data Vital Signs (Past 12 Hours) Vital Signs Temp Pulse Resp BP Pulse Ox 04/24/19 19:11 36.6 C 68 20 140/79 04/24/19 15:10 36.8 C 69 18 126/78 96 Laboratory Results 04/24/19 04/24/19 04/24/19 Range/Units 04:47 04:47 04:47 WBC 5.69 (4.8-10.8) K/uL RBC 4.30 L (4.7-6.1) M/uL Hgb 12.6 L (14.0-18.0) g/dL Hct 39.1 L (42-52) % MCV 90.9 (80-100) fL MCH 29.3 (25-34) pg MCHC 32.2 (32-36) g/dL RDW Std Deviation 46.8 H (36.4-46.3) fL RDW Coeff of Shanita 14.3 (11.5-14.5) % Plt Count 207 (130-400) K/uL MPV 10.2 (7.4-10.4) fL Sodium 142 (136-145) mmol/L Potassium 3.6 (3.5-5.1) mmol/L Chloride 110 H (98-107) mmol/L Carbon Dioxide 28 (21-32) mmol/L Anion Gap 4.0 (3-11) BUN 14 (7-18) mg/dl Creatinine 1.42 H (0.6-1.4) mg/dl Est Cr Clr Drug Dosing 58.8 ml/min Est GFR ( Amer) 64.0 Est GFR (Non-Af Amer) 55.2 BUN/Creatinine Ratio 10.0 (10-20) Glucose 85 (70-99) mg/dl Calcium 8.3 L (8.5-10.1) mg/dl Total Bilirubin 0.4 (0.2-1) mg/dl AST 9 L (15-37) U/L ALT 16 (12-78) U/L Alkaline Phosphatase 53 (45-117) U/L Total Protein 7.0 (6.4-8.2) gm/dl Albumin 3.6 (3.4-5.0) gm/dl Globulin 3.4 (2.5-4.0) gm/dl Albumin/Globulin Ratio 1.1 (0.9-2) Lipase 121 (73-393) U/L Medications Administered Current Inpatient Medications Acetaminophen (Tylenol) 650 mg PO Q6H PRN PRN Reason: Pain Stop: 05/22/19 20:38 Albuterol (Ventolin Hfa) 2 puffs INH QID PRN PRN Reason: Shortness Of Breath Or Wheezin Stop: 05/22/19 20:38 Enoxaparin Sodium (Lovenox) 40 mg SQ Q24H [facility]LEY Stop: 05/22/19 21:59 Last Admin: 04/24/19 20:59 Dose: 40 mg Documented by: Enzalutamide (Xtandi) 4 ea PO DAILY@1900 [facility] Stop: 05/23/19 18:59 Last Admin: 04/24/19 19:01 Dose: 4 ea Documented by: Ceftriaxone Sodium 2,000 mg/ (Dextrose) 70 mls @ 100 mls/hr IV Q24H [facility]; Protocol Stop: 05/02/19 16:59 Last Infusion: 04/24/19 19:37 Dose: Infused Documented by: Promethazine HCl 12.5 mg/ (Sodium Chloride) 50.5 mls @ 202 mls/hr IV Q6H PRN PRN Reason: Nausea And Vomiting Stop: 05/22/19 22:45 Last Infusion: 04/24/19 18:54 Dose: Infused Documented by: Morphine Sulfate (Ms Contin) 30 mg PO Q12 [facility] Stop: 05/06/19 21:59 Last Admin: 04/24/19 20:59 Dose: 30 mg Documented by: Naproxen (Naprosyn) 250 mg PO BIDM PRN PRN Reason: Pain Stop: 05/22/19 21:32 Last Admin: 04/24/19 03:50 Dose: 250 mg Documented by: Oxybutynin Chloride (Ditropan Xl) 5 mg PO DAILY [facility] Stop: 05/23/19 08:59 Last Admin: 04/24/19 07:50 Dose: 5 mg Documented by: Phenazopyridine HCl (Pyridium) 100 mg PO TID PRN PRN Reason: pain with urination Stop: 05/22/19 20:38 Last Admin: 04/24/19 16:11 Dose: 100 mg Documented by: Polyethylene Glycol (Miralax Powder Packet) 17 gm PO DAILY PRN PRN Reason: Constipation Stop: 05/22/19 20:38 Last Admin: 04/24/19 14:39 Dose: 17 gm Documented by: Fluticasone/Salmeterol (Advair Diskus 500/50) 1 puffs INH BID [facility] Stop: 05/23/19 20:59 Last Admin: 04/24/19 20:58 Dose: Not Given Documented by: Tamsulosin HCl (Flomax) 0.4 mg PO BID [facility] Stop: 05/22/19 20:59 Last Admin: 04/24/19 20:59 Dose: 0.4 mg Documented by: Tramadol HCl (Ultram) 50 mg PO Q6H PRN PRN Reason: Pain Stop: 05/22/19 20:38 Verapamil HCl (Calan Sr) 180 mg PO [facility] Stop: 05/22/19 20:59 Last Admin: 04/24/19 20:59 Dose: 180 mg Documented by: Vitamin D (Vitamin D3) 1,000 units PO [facility] Stop: 05/23/19 08:59 Last Admin: 04/24/19 07:50 Dose: 1,000 units Documented by:
[2019-04-24] MEDS ORDERED: POTASSIUM CHLORIDE 20 MEQ TABCR PO STA (22:34)
[2019-04-25] MEDS ORDERED: MoRPHine SULFATE 4 MG/ML 1 ML CARP\\VIAL IV STA (00:04)
[2019-04-25 07:35] LABS: BUN Creatinine Ratio 10.7 (10-20); Calcium 8.9 mg/dl (8.5-10.1); Creatinine Clr Calc Pharmacy 62.3 ml/min; Est GFR (African American) 68.6; Est GFR (Non-African American) 59.2; Magnesium 2.5 mg/dl (1.8-2.4); Potassium 4.2 mmol/L (3.5-5.1)
[2019-04-25] MEDS: FLUTICASONE/SALMETEROL (ADVAIR) 500/50 INH 14 PUFF INH SCH ×2 (07:55→20:55)
[2019-04-25] MEDS: PHENAZOPYRIDINE HCL 100 MG TAB PO PRN (07:56)
[2019-04-25] MEDS: OXYBUTYNIN CHLORIDE XL 5 MG TABCR PO SCH (07:56)
[2019-04-25] MEDS: TAMSULOSIN HCL 0.4 MG CAP PO SCH ×2 (07:56→20:54)
[2019-04-25] MEDS: CHOLECALCIFEROL 1,000 UNITS TAB PO SCH (07:57)
[2019-04-25] MEDS: MoRPHine SULFATE CR 15 MG TABCR PO SCH ×2 (08:51→20:54)
--- NOTE | 2019-04-25 11:06 | Hospitalist Progress Note ---
Date of Service April 25, 2019 Assessment & Plan (1) Complicated UTI (urinary tract infection): This is a 53yo M with a PMH of adenocarcinoma of prostate with bony mets s/p TURBT in Mar 2019, asthma, history of hepatitis C, CKD III and hypertension who presents with worsening urinary symptoms x1 week. -H/o TURBT in Mar 2019, as well as recent percutaneous nephrostomy tube (since removed) and placement of ureteral stent -presented with Progressively worsening dysuria -Renal u/s shows that right ureteral stent is in good position and there is no hydronephrosis -UA is grossly abnormal. Started on Rocephin for empiric treatment of complicated UTI -urine culture no growth last urine culture on 02/2019 was staph aureus MSSA was treated with Nitrofurantoin ( pt is allergic to sulfa and PCN ) may need continued tx with Nitrofurantoin on discharged URology consulted, appreciate input (2) Elevated lipase: resolved no complain of abdominal pain , no nausea /vomiting, tolerating diet Lipase elevated at 2111. Endorses mild right lower quadrant discomfort but denies nausea or vomiting. Has had no appetite change and is requesting dinner -Denies alcohol use or smoking. Likely elevated in setting of chemo medications (recently started on Xtandi 4 days ago, has been on Lupron) vs XRT -CT abd/pelvis without abnormality of pancreas - (3) Prostate cancer metastatic to bone: (4) S/P ureteral stent placement: Follows with Dr. Mann for prostate cancer treatment and completed radiation 4 days ago as well as starting Xtandi. Also taking Lupron and Xgeva Q3M -Continue Xtandi HS -Continue oxybutynin, tamsulosin, silva in place (5) HTN (hypertension): Continue verapamil (6) Asthma: Stable. Continue albuterol PRN, Breo Ellipta DVT Ppx: SQ lovenox Code status: DNR per discussion with patient PCP: ROQUE Wallace Dispo: plan to dc home when medically stable Subjective complains of severe bladder spasm very miserable nothing helping no hematuria noted on silva no fever or chills Review of Systems Review of Systems: At least ten systems reviewed and negative except as noted in the HPI. Genitourinary: + dysuria, + urinary frequency and + problem reported (severe bladder spasm ) Physical Exam Constitutional: WD/WN, vitals as above + acute distress (due to bladder spasm ) Eyes: PERRL, conjunctivae normal, anicteric sclerae ENMT: external ear and nose normal, oropharynx normal Neck: trachea midline, no thyromegaly Respiratory: normal respiratory effort, lungs clear to auscultation Cardiovascular: RRR, no murmur, no edema Gastrointestinal (Abdomen): normal bowel sounds, soft, nontender, no hepatosplenomegaly Musculoskeletal: no cyanosis or clubbing, extremities motor strength 5/5 Skin: no rashes, warm and dry Neurologic: PERRL, EOMI, accommodation nl, no face palsy, no dysarthria Psychiatric: A+Ox3, euthymic affect Results & Data Vital Signs (Past 12 Hours) Vital Signs Temp Pulse Resp BP BP Pulse Ox 04/25/19 07:36 37.1 C 70 18 119/67 90 04/25/19 04:14 36.5 C 63 20 107/66 93 04/25/19 00:22 66 108/67 04/24/19 23:33 36.7 C 74 20 106/64 93
[2019-04-25] MEDS ORDERED: MoRPHine SULFATE 4 MG/ML 1 ML CARP\\VIAL IV PRN (17:49)
[2019-04-25] MEDS: cefTRIAXone SODIUM 2,000 MG in DEXTROSE 5% 50 ML IV SCH (18:09)
[2019-04-25] MEDS: ENZALUTAMIDE PO SCH (18:17)
[2019-04-25] MEDS ORDERED: OXYBUTYNIN CHLORIDE 5 MG TAB PO STA (18:27)
[2019-04-25] MEDS ORDERED: BELLADONNA/OPIUM SUPP 60 MG SUPP PR PRN (18:35)
[2019-04-25] MEDS: PHENAZOPYRIDINE HCL 100 MG TAB PO SCH ×2 (18:42→20:55)
--- NOTE | 2019-04-25 18:56 | Urology Consultation ---
Date of Consultation April 25, 2019 Assessment & Plan (1) Prostate cancer metastatic to bone: has has locally advanced prostate cancer into the bladder neck he has an infection of the necrotic tissue at BN which is slowly sloughing off we plan a trial without catheter tomorrow I do not think he is obstructed at bladder level I do not recommend CBI at this time. I suggest B and O suppositories increase ditropan to 10mg daily may go up to 15 mg if he does not develop dry mouth at 10mg May also try muscle relaxers like flexeril if he dose not improve Present on Admission?: Yes History of Present Illness Reason for Consultation: badder spasms Requesting Physician: Dr Adams Attending Physician: Jessica Adams MD History of Present Illness I am asked by Dr Adams to evaluate and treat patient for bladder spasms. He is one month s/p TUR of a very large prostate cancer mass on the bladder neck and trigone which was both obstructing his right ureter and causing brisk bleeding. He had palliative radiation to the bladder neck and trigone to discourage rapid regrowth of the large tumor. This has successfully controlle the hematuria. His current urologic problems started when He was noted to have new right hyd roureter in dec [address] so he had a right nephroureteral stent tube placed in February 2019 at [facility]. He developed a staph pyelonephritis about a week later. 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 He developed severe dysuria and severe bladder spasms this week. We placed a silva as urination was miserable due to pain but he feels like he is no better. Allergies Allergy/AdvReac Type Severity Reaction Status Date / Time aminophylline Allergy Intermediate PASSES Verified 04/22/19 16:31 OUT, HIVES Penicillins Allergy Intermediate passes Verified 04/22/19 16:31 out, hives as a child sulfamethoxazole Allergy Intermediate Hives Verified 04/22/19 16:31 [From Bactrim] trimethoprim [From Bactrim] Allergy Intermediate Hives Verified 04/22/19 16:31 Home Medications Home Medications Medication Instructions Recorded Confirmed Type albuterol sulfate 2 puff INHALATION QID PRN 02/24/19 04/22/19 History tamsulosin 0.4 mg PO BID 02/24/19 04/22/19 History verapamil 180 mg PO HS 02/24/19 04/22/19 History ondansetron 4 mg PO Q8H PRN 03/18/19 04/22/19 History morphine 30 mg capsule,extended 30 mg PO Q12H cap 04/14/19 04/22/19 History release 24 hr multiphase acetaminophen 650 mg PO Q6H PRN 04/22/19 04/22/19 History cholecalciferol (vitamin D3) 1,000 unit PO QAM 04/22/19 04/22/19 History [Vitamin D3] denosumab [Xgeva] 120 mg SUBCUT Q3M 04/22/19 04/22/19 History enzalutamide [Xtandi] 160 mg PO HS 04/22/19 04/22/19 History fluticasone furoate-vilanterol 1 inh INHALATION DAILY 04/22/19 04/22/19 History [Breo Ellipta] leuprolide (3 month) [Lupron Depot 0 mg IM Q3M 04/22/19 04/22/19 History (3 month)] naproxen sodium 220 mg PO BIDM PRN 04/22/19 04/22/19 History nitrofurantoin monohyd/m-cryst 100 mg PO Q12H 04/22/19 04/22/19 History oxybutynin chloride [Ditropan XL] 5 mg PO DAILY 04/22/19 04/22/19 History phenazopyridine 100 mg PO TID PRN 04/22/19 04/22/19 History tramadol 50 mg PO Q6H PRN 04/22/19 04/22/19 History vitamin E 1,000 unit PO QAM 04/22/19 04/22/19 History Patient History Medical History (Updated 04/22/19 @ 20:23 by Jasmyn Escamilla PA-C) Asthma (Chronic) BRONCHIAL ASTHMA (HAS NOT USED RESCUE INHALER FOR A WHILE) Chronic hepatitis C (Chronic) TREATED AND NO LONGER TEST + Dyslipidemia (Chronic) GERD (gastroesophageal reflux disease) HTN (hypertension) (Chronic) 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 Migraine Osteoarthritis Portal hypertension (Chronic) Prostate cancer metastatic to bone (Chronic) STAGE 4 Surgical History History of carpal tunnel surgery (Chronic) History of colonoscopy (Chronic) History of esophagogastroduodenoscopy (EGD) History of open reduction and internal fixation (ORIF) procedure RT ARM History of surgery NEPHROSTOMY TUBE IN PLACE (PLACE FLUSING) History of tonsillectomy S/P ureteral stent placement [place] teeth removed Family History Other Cancer Diabetes Social History Preferred Language: Belarusian Communication Ability: Effective Supervisor [employer] Required: No Beliefs That Will Affect Care: None marital status: Single Current Living Situation: Alone Feels Safe at Home: Yes Safety Concerns: Feels Safe At This Time Smoking Status: Former smoker Tobacco Type: cigarettes and smokeless tobacco ; Second Hand Exposure: Yes ; Hx Alcohol Use: No Hx Substance Use: No Review of Systems Review of Systems: PMH- metastatic prostate cancer at presentation few years ago. 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 Respiratory: normal respiratory effort; no retractions, no cough and not tachypneic Skin: no rashes, warm and dry Psychiatric: A+Ox3, euthymic affect Genitourinary: no penis abnormality and no testes abnormality circ phallus with silva in proper position draining clear pyridium colored urine. His diaper has some mucoid cream colored discharge. I hand irrigated the silva easily with two 60ml portions. No clot, no debris, no obstruction to flow. Results & Data Vital Signs (Past 12 Hours) Vital Signs Temp Pulse Resp BP Pulse Ox 04/25/19 14:41 36.7 C 77 18 138/79 96 04/25/19 11:28 36.9 C 97 H 18 123/82 92 04/25/19 07:36 37.1 C 70 18 119/67 90
[2019-04-25] MEDS: VERAPAMIL HCL 180 MG TABCR PO SCH (20:54)
[2019-04-25] MEDS: ENOXAPARIN INJ 40 MG/0.4 ML SYR SQ SCH (21:13)
[2019-04-26] MEDS ORDERED: CYCLOBENZAPRINE HCL 10 MG TAB PO STA ×2 (00:36→10:57)
[2019-04-26] MEDS: OXYBUTYNIN CHLORIDE XL 5 MG TABCR PO SCH (09:44)
[2019-04-26] MEDS: TAMSULOSIN HCL 0.4 MG CAP PO SCH ×2 (09:45→20:51)
[2019-04-26] MEDS: MoRPHine SULFATE CR 15 MG TABCR PO SCH ×2 (09:45→20:51)
[2019-04-26] MEDS: PHENAZOPYRIDINE HCL 100 MG TAB PO SCH ×3 (09:46→20:51)
[2019-04-26] MEDS: CHOLECALCIFEROL 1,000 UNITS TAB PO SCH (09:47)
[2019-04-26] MEDS: FLUTICASONE/SALMETEROL (ADVAIR) 500/50 INH 14 PUFF INH SCH ×2 (09:48→20:50)
--- NOTE | 2019-04-26 10:56 | Discharge Summary ---
Date of Service April 26, 2019 Admission HPI Per Admitting Provider This is a 53yo M with a PMH of adenocarcinoma of prostate with bony mets s/p TURBT in Mar 2019, asthma, history of hepatitis C, CKD III and hypertension who presents with worsening urinary symptoms x1 week. Patient follows with Dr. Mann for prostate cancer treatment and completed radiation 4 days ago as well as starting Xtandi. Is also taking Lupron and Xgeva Q3M. Has been following with Dr. Kunz as well, with recent percutaneous nephrostomy tube and placement of ureteral stent. Over the past week, patient has had progressively worsening dysuria. Was concerned that stent was out of place so came to ED for further evaluation. Renal ultrasound shows that right ureteral stent is in good position and there is no hydronephrosis. UA is grossly abnormal. Started on Rocephin for empiric treatment of complicated UTI. Also noted to have elevated lipase of 2111. Endorses mild right lower quadrant discomfort but denies nausea or vomiting. Has had no appetite change. Denies fever, chills, lightheaded ness, visual changes, chest pain, palpitations, shortness of breath, diarrhea or constipation. Principal Diagnosis URINARY RETENTION-COMPLICATED UTI /BLADDER SPASM /PROSTATE CANCER S/P TURP Discharge Exam Constitutional WD/WN, vitals as above + acute distress (due to bladder spasm ) Eyes PERRL, conjunctivae normal, anicteric sclerae ENMT external ear and nose normal, oropharynx normal Neck trachea midline, no thyromegaly Respiratory normal respiratory effort, lungs clear to auscultation Cardiovascular RRR, no murmur, no edema Gastrointestinal (Abdomen) normal bowel sounds, soft, nontender, no hepatosplenomegaly Musculoskeletal no cyanosis or clubbing, extremities motor strength 5/5 Skin no rashes, warm and dry Neurologic PERRL, EOMI, accommodation nl, no face palsy, no dysarthria Psychiatric A+Ox3, euthymic affect Discharge Data Allergies Allergy/AdvReac Type Severity Reaction Status Date / Time aminophylline Allergy Intermediate PASSES Verified 04/22/19 16:31 OUT, HIVES Penicillins Allergy Intermediate passes Verified 04/22/19 16:31 out, hives as a child sulfamethoxazole Allergy Intermediate Hives Verified 04/22/19 16:31 [From Bactrim] trimethoprim [From Bactrim] Allergy Intermediate Hives Verified 04/22/19 16:31 Consultations 04/22/19 18:18 ED Decision to Admit Stat 04/25/19 17:31 Consult Urology Routine Ordered Studies 04/22/19 15:32 US renal/blad retro comp Stat 04/22/19 16:42 CT abd pelvis IV con only Stat Hospital Course (1) Complicated UTI (urinary tract infection): This is a 53yo M with a PMH of adenocarcinoma of prostate with bony mets s/p TURBT in Mar 2019, asthma, history of hepatitis C, CKD III and hypertension who presents with worsening urinary symptoms x1 week. -H/o TURBT in Mar 2019, as well as recent percutaneous nephrostomy tube (since removed) and placement of ureteral stent -presented with Progressively worsening dysuria -Renal u/s shows that right ureteral stent is in good position and there is no hydronephrosis -UA is grossly abnormal. Started on Rocephin for empiric treatment of complicated UTI -urine culture no growth last urine culture on 02/2019 was staph aureus MSSA was treated with Nitrofurantoin ( pt is allergic to sulfa and PCN ) may need continued tx with Nitrofurantoin on discharged URology consulted, appreciate input silva is discontinued today ordered for Flexeril and pyridium as need bladder spasm much improved stable to be discharged home today (2) Elevated lipase: resolved no complain of abdominal pain , no nausea /vomiting, tolerating diet Lipase elevated at 2111. Endorses mild right lower quadrant discomfort but denies nausea or vomiting. Has had no appetite change and is requesting dinner -Denies alcohol use or smoking. Likely elevated in setting of chemo medications (recently started on Xtandi 4 days ago, has been on Lupron) vs XRT -CT abd/pelvis without abnormality of pancreas - (3) Prostate cancer metastatic to bone: (4) S/P ureteral stent placement: Follows with Dr. Mann for prostate cancer treatment and completed radiation 4 days ago as well as starting Xtandi. Also taking Lupron and Xgeva Q3M -Continue Xtandi HS -Continue oxybutynin dose increased to 10 mg PO daily , tamsulosin, Silva d/prosper during this hospital stay (5) HTN (hypertension): Continue verapamil (6) Asthma: Stable. Continue albuterol PRN, Breo Ellipta DVT Ppx: SQ lovenox Code status: DNR per discussion with patient PCP: ROQUE Wallace Dispo: dicharged home today Total Time Total Time Spent Total Time Spent (In Minutes): approx 40 mins Total Time Includes: Examination of the Patient, Discharge Planning and Medication Reconciliation Discharge Plan Discharge Items Patient Disposition: Home - Self-Care Reason For Visit: COMPLICATED UTI IN SETTING OF STENT,PROSTATE CANCE Discharge Diagnosis: URINARY RETENTION-COMPLICATED UTI /BLADDER SPASM /PROSTATE CANCER S/P TURP Activity: Resume your previous activity Non-emergency contact: Primary Care Provider Call non-emergency contact if: you have any medication questions Follow-up/Referrals: Arnoldo Wallace PA-C [Primary Care Provider] - Diet: Regular Addtl Attending Provider Instructions: hospital follow up with Dr Wallace in a week Urology follow up with Dr Kunz in 2-3 weeks, please call office to schedule appointment Pending Studies at Discharge: No Stand-Alone Forms: [email or web address], Smoking Cessation Medications and DC Order Prescriptions: New belladonna alkaloids-opium 16.2-60 mg Suppository 60 mg MN QID PRN (Reason: bladder spasm) Qty: 90 RF: 0 cyclobenzaprine 10 mg tablet 10 mg PO TID PRN (Reason: bladder spasm) Qty: 90 RF: 0 nitrofurantoin monohyd/m-cryst 100 mg capsule 100 mg PO Q12H 5 Days Qty: 10 RF: 0 oxybutynin chloride [Ditropan XL] 5 mg tablet extended release 24hr 10 mg PO DAILY Qty: 60 RF: 0 Continued morphine 30 mg capsule, ER multiphase 24 hr 30 mg PO Q12H RF: 0 acetaminophen 325 mg Tablet 650 mg PO Q6H PRN (Reason: Pain) RF: 0 tramadol 50 mg tablet 50 mg PO Q6H PRN (Reason: Pain) RF: 0 Xtandi 40 mg Capsule 160 mg PO HS RF: 0 Breo Ellipta 200-25 mcg/dose blister with device 1 inh INHALATION DAILY RF: 0 vitamin E 1,000 unit Capsule 1,000 unit PO QAM RF: 0 Lupron Depot (3 month) 22.5 mg Syringe Kit 0 mg IM Q3M RF: 0 cholecalciferol (vitamin D3) [Vitamin D3] 25 mcg (1,000 unit) Capsule 1,000 unit PO QAM RF: 0 Xgeva 120 mg/1.7 mL (70 mg/mL) Solution 120 mg subcut Q3M RF: 0 phenazopyridine 100 mg Tablet 100 mg PO TID PRN (Reason: pain with urination ) Qty: 90 RF: 3 verapamil 180 mg tablet extended release 180 mg PO HS RF: 0 tamsulosin 0.4 mg capsule 0.4 mg PO BID RF: 0 albuterol sulfate 90 mcg/actuation Hfa Aerosol Inhaler 2 puff INHALATION QID PRN (Reason: Shortness Of Breath Or Wheezing) RF: 0 ondansetron 4 mg tablet,disintegrating 4 mg PO Q8H PRN (Reason: Nausea) RF: 0 Discontinued naproxen sodium 220 mg Capsule 220 mg PO BIDM PRN (Reason: Pain) RF: 0 Discharge Orders: Discharge Order (Routine); Ordered 04/26/19 Ordered By: Jessica Adams Admission Data Admit Date/Time: 04/22/19 19:31 Attending Provider: Jessica Adams Admit Provider: Shira Martinez Primary Care Provider: Arnoldo Wallace Other Providers: Vikram Vaughn ; Shira Martinez ; Janeth Kunz
--- NOTE | 2019-04-26 15:03 | Urology Progress Note ---
Date of Service April 26, 2019 Assessment & Plan (1) Prostate cancer metastatic to bone: has has locally advanced prostate cancer into the bladder neck bladder spasms s better without silva dysuria is tolerable now that he has had a few days of antibiotics. he has an infection of the necrotic tissue at which is slowly sloughing off He passed a trial without catheter today Continue ditropan at 10mgXL daily He would like to have script for B and O suppositories in outpatient [facility]. they can be harder to source as pharmacies usually do not stock but might have to order in. Present on Admission?: Yes Subjective He has been voiding spontaneously with milder dysuria. The bladder spasms are less frequent and less severe. He is using B and O suppositories q 6 hrs and we increased ditropan to 10mg daily XL. He just had some emesis new this afternoon. Review of Systems Review of Systems: + nausea with emesis, no chest pain no shortness of breath, no rash, no seizures Results & Data Vital Signs (Past 12 Hours) Vital Signs Temp Pulse Pulse Resp BP BP Pulse Ox 04/26/19 12:18 36.6 C 55 L 58 L 16 110/64 107/66 96 04/26/19 11:44 36.6 C 58 L 16 110/64 96 04/26/19 07:23 36.6 C 56 L 16 100/61 95 04/26/19 03:36 36.6 C 55 L 18 113/68 93
[2019-04-26] MEDS ORDERED: ONDANSETRON INJ 2 MG/ML 2 ML VIAL IV PRN (15:06)
[2019-04-26] MEDS ORDERED: CYCLOBENZAPRINE HCL 10 MG TAB PO PRN (15:09)
[2019-04-26] MEDS: cefTRIAXone SODIUM 2,000 MG in DEXTROSE 5% 50 ML IV SCH (17:51)
--- NOTE | 2019-04-26 18:16 | Hospitalist Progress Note ---
Date of Service April 26, 2019 Subjective ATTENDING NOTE : plan was to discharged pt home today did well after silva taken out this am voided spontaneously with minimum post void residue bladder spasm has improved significantly after silva removed later developed episoded of nausea /vomiting and diarrhea evaluated at bedside does not have any complain of abdominal pain or bladder spasm cancel discharge home today pt was treated with Iv rocephin since admission for UTI ordered stool for c diff will reevaluate pt in am Jessica Adams MD Results & Data Vital Signs (Past 12 Hours) Vital Signs Temp Pulse Pulse Pulse Resp BP BP 04/26/19 16:06 36.9 C 63 18 133/87 04/26/19 12:18 36.6 C 55 L 58 L 16 110/64 107/66 04/26/19 11:44 36.6 C 58 L 16 110/64 04/26/19 07:23 36.6 C 56 L 16 100/61 Pulse Ox 04/26/19 16:06 94 04/26/19 12:18 96 04/26/19 11:44 96 04/26/19 07:23 95
[2019-04-26] MEDS: ENZALUTAMIDE PO SCH (18:59)
[2019-04-26] MEDS: NITROFURANTOIN MONOHYDRATE 100 MG CAP PO SCH (20:51)
[2019-04-26] MEDS: VERAPAMIL HCL 180 MG TABCR PO SCH (20:51)
[2019-04-27 06:03] LABS: Hematocrit (blood only) 40.7 % (42-52); Hemoglobin 13.5 g/dL (14.0-18.0); Mean Corpuscular Hgb Conc 33.2 g/dL (32-36); Mean Corpuscular Volume 90.4 fL (80-100); Mean Platelet Volume 9.5 fL (7.4-10.4); Platelet Count 241 K/uL (130-400); RDW Coefficient of Variation 13.8 % (11.5-14.5); RDW Standard Deviation 45.7 fL (36.4-46.3); White Blood Count 4.79 K/uL (4.8-10.8)
[2019-04-27 06:31] LABS: Creatinine Clr Calc Pharmacy 56.1 ml/min; Est GFR (African American) 60.9; Est GFR (Non-African American) 52.6
[2019-04-27 07:18] VITALS: BP 105/67; PULSE 56; TEMP 98.1; O2SAT 93
[2019-04-27] MEDS: MoRPHine SULFATE CR 15 MG TABCR PO SCH (07:46)
[2019-04-27] MEDS: OXYBUTYNIN CHLORIDE XL 5 MG TABCR PO SCH (07:47)
[2019-04-27] MEDS: NITROFURANTOIN MONOHYDRATE 100 MG CAP PO SCH (07:47)
[2019-04-27] MEDS: CHOLECALCIFEROL 1,000 UNITS TAB PO SCH (07:48)
[2019-04-27] MEDS: PHENAZOPYRIDINE HCL 100 MG TAB PO SCH (07:48)
[2019-04-27] MEDS: TAMSULOSIN HCL 0.4 MG CAP PO SCH (07:48)
[2019-04-27] MEDS: FLUTICASONE/SALMETEROL (ADVAIR) 500/50 INH 14 PUFF INH SCH (07:49)
--- NOTE | 2019-04-27 12:21 | Hospitalist Progress Note ---
Date of Service April 27, 2019 Assessment & Plan (1) Complicated UTI (urinary tract infection): Dysuria and bladder spasms in the setting of prostate ca 53yo M with a PMH of adenocarcinoma of prostate with bony mets s/p TURBT in Mar 2019,s/p radiation tx on Chemo presents with worsening urinary symptoms x1 week. -H/o TURBT in Mar 2019, as well as recent percutaneous nephrostomy tube (since removed) and placement of ureteral stent -presented with Progressively worsening dysuria -Renal u/s shows that right ureteral stent is in good position and there is no hydronephrosis -UA is grossly abnormal. Started on Rocephin for empiric treatment of complicated UTI -urine culture no growth last urine culture on 02/2019 was staph aureus MSSA was treated with Nitrofurantoin ( pt is allergic to sulfa and PCN ) will need continued tx with Nitrofurantoin on discharge appreciate input from Urology pt is started on B and O suppositories increase ditropan to 10mg daily cont on Pyridium and Flexeril pt reports improvement of symptom , having bladder spasm only during urination stable to be discharged home today (2) Elevated lipase: no complain of abdominal pain , lipase level normalized -CT abd/pelvis without abnormality of pancreas transient elevation of lipase could be due to chemo tx (3) Prostate cancer metastatic to bone: Follows with Dr. Mann for prostate cancer treatment and completed radiation tx started on oral chemo agent Xtandi ( enzulatutamide ) on Lupron and Xgeva Q3M chemo meds continued pt has been having ongoing nausea /vomiting /loose stool possibly due to chemo meds stool C diff negative pt is advised to take as needed Zofran for N/V and imodium for loose stool risk for complicated UTI remains significantly high , pt is asked to seek medical tx ( coming to ER or call physician in clinic ) with any event of fever , chills , worsening of abdominal pain , bladder spasm (4) S/P ureteral stent placement: (5) HTN (hypertension): Continue verapamil (6) Asthma: Stable. Continue albuterol PRN, Breo Ellipta DVT Ppx: SQ lovenox Code status: DNR per discussion with patient PCP: ROQUE Wallace DISPOSITION : stable to be discharharged home today Subjective pt reports of feeling better today having bladder spasm only while urinating had vomiting episodes yesterday and AM loose bowel movement yesterday none this morning pt has been having vomiting , diarrhea since starting on Chemo tx for prostate CA has been an ongoing issue stool C diff negative script sent to his pharmacy for PRN Zofran and imodium no fever or chills stable to be discharge home today Review of Systems Review of Systems: At least ten systems reviewed and negative except as noted in the HPI. Gastrointestinal: + nausea, + vomiting and + diarrhea/loose stools Genitourinary: + dysuria, + urinary frequency and + problem reported ( bladder spasm improved ); no hematuria Physical Exam Constitutional: WD/WN, vitals as above no acute distress Eyes: PERRL, conjunctivae normal, anicteric sclerae ENMT: external ear and nose normal, oropharynx normal Neck: trachea midline, no thyromegaly Respiratory: normal respiratory effort, lungs clear to auscultation Cardiovascular: RRR, no murmur, no edema Gastrointestinal (Abdomen): normal bowel sounds, soft, nontender, no hepatosplenomegaly Musculoskeletal: no cyanosis or clubbing, extremities motor strength 5/5 Skin: no rashes, warm and dry Neurologic: PERRL, EOMI, accommodation nl, no face palsy, no dysarthria Psychiatric: A+Ox3, euthymic affect Results & Data Vital Signs (Past 12 Hours) Vital Signs Temp Pulse Resp BP BP Pulse Ox 04/27/19 12:14 36.7 C 56 L 16 102/60 105/67 93 04/27/19 07:17 36.7 C 56 L 16 105/67 93 04/27/19 03:12 36.6 C 63 14 102/60 91 04/27/19 00:37 36.6 C 56 L 14 109/66 90
--- NOTE | 2019-04-27 12:45 | Urology Progress Note ---
Date of Service April 27, 2019 Assessment & Plan (1) Complicated UTI (urinary tract infection): he is responding to antibiotics He understands he remains at risk for relapse due to the necrotic material. We hope it will pass on its own. We will not intervene surgically unless we have to as we create more scab with the procedures. He will need stent change in early june 2019 he will continue with ditropan 10mg daily and B and O suppositories prn Present on Admission?: Yes Subjective Patient doing well without catheter. Having some bladder pain with voiding and some stent reflux with some right kidney pressure. No fevers. Nausea and diarrhea being attributed to chemo. Review of Systems Review of Systems: + loose stools c dif normal. no chest pain no SOB, no rash, no fevers Results & Data Vital Signs (Past 12 Hours) Vital Signs Temp Pulse Resp BP BP Pulse Ox 04/27/19 12:14 36.7 C 56 L 16 102/60 105/67 93 04/27/19 07:17 36.7 C 56 L 16 105/67 93 04/27/19 03:12 36.6 C 63 14 102/60 91
--- NOTE | 2019-04-27 12:45 | Discharge Summary ---
Date of Service April 27, 2019 Admission HPI Per Admitting Provider This is a 53yo M with a PMH of adenocarcinoma of prostate with bony mets s/p TURBT in Mar 2019, asthma, history of hepatitis C, CKD III and hypertension who presents with worsening urinary symptoms x1 week. Patient follows with Dr. Mann for prostate cancer treatment and completed radiation 4 days ago as well as starting Xtandi. Is also taking Lupron and Xgeva Q3M. Has been following with Dr. Kunz as well, with recent percutaneous nephrostomy tube and placement of ureteral stent. Over the past week, patient has had progressively worsening dysuria. Was concerned that stent was out of place so came to ED for further evaluation. Renal ultrasound shows that right ureteral stent is in good position and there is no hydronephrosis. UA is grossly abnormal. Started on Rocephin for empiric treatment of complicated UTI. Also noted to have elevated lipase of 2111. Endorses mild right lower quadrant discomfort but denies nausea or vomiting. Has had no appetite change. Denies fever, chills, lightheaded ness, visual changes, chest pain, palpitations, shortness of breath, diarrhea or constipation. Principal Diagnosis URINARY RETENTION-COMPLICATED UTI /BLADDER SPASM /PROSTATE CANCER S/P TURP Discharge Exam Constitutional WD/WN, vitals as above no acute distress Eyes PERRL, conjunctivae normal, anicteric sclerae ENMT external ear and nose normal, oropharynx normal Neck trachea midline, no thyromegaly Respiratory normal respiratory effort, lungs clear to auscultation Cardiovascular RRR, no murmur, no edema Gastrointestinal (Abdomen) normal bowel sounds, soft, nontender, no hepatosplenomegaly Musculoskeletal no cyanosis or clubbing, extremities motor strength 5/5 Skin no rashes, warm and dry Neurologic PERRL, EOMI, accommodation nl, no face palsy, no dysarthria Psychiatric A+Ox3, euthymic affect Discharge Data Allergies Allergy/AdvReac Type Severity Reaction Status Date / Time aminophylline Allergy Intermediate PASSES Verified 04/22/19 16:31 OUT, HIVES Penicillins Allergy Intermediate passes Verified 04/22/19 16:31 out, hives as a child sulfamethoxazole Allergy Intermediate Hives Verified 04/22/19 16:31 [From Bactrim] trimethoprim [From Bactrim] Allergy Intermediate Hives Verified 04/22/19 16:31 Consultations 01/07/20 18:18 ED Decision to Admit Stat 04/25/19 17:31 Consult Urology Routine Ordered Studies 04/22/19 15:32 US renal/blad retro comp Stat 04/22/19 16:42 CT abd pelvis IV con only Stat Hospital Course (1) Complicated UTI (urinary tract infection): Dysuria and bladder spasms in the setting of prostate ca 53yo M with a PMH of adenocarcinoma of prostate with bony mets s/p TURBT in Mar 2019,s/p radiation tx on Chemo presents with worsening urinary symptoms x1 week. -H/o TURBT in Mar 2019, as well as recent percutaneous nephrostomy tube (since removed) and placement of ureteral stent -presented with Progressively worsening dysuria -Renal u/s shows that right ureteral stent is in good position and there is no hydronephrosis -UA is grossly abnormal. Started on Rocephin for empiric treatment of complicated UTI -urine culture no growth last urine culture on 02/2019 was staph aureus MSSA was treated with Nitrofurantoin ( pt is allergic to sulfa and PCN ) will need continued tx with Nitrofurantoin on discharge appreciate input from Urology pt is started on B and O suppositories increase ditropan to 10mg daily cont on Pyridium and Flexeril pt reports improvement of symptom , having bladder spasm only during urination stable to be discharged home today (2) Elevated lipase: no complain of abdominal pain , lipase level normalized -CT abd/pelvis without abnormality of pancreas transient elevation of lipase could be due to chemo tx (3) Prostate cancer metastatic to bone: Follows with Dr. Mann for prostate cancer treatment and completed radi ation tx started on oral chemo agent Xtandi ( enzulatutamide ) on Lupron and Xgeva Q3M chemo meds continued pt has been having ongoing nausea /vomiting /loose stool possibly due to chemo meds stool C diff negative pt is advised to take as needed Zofran for N/V and imodium for loose stool risk for complicated UTI remains significantly high , pt is asked to seek medical tx ( coming to ER or call physician in clinic ) with any event of fever , chills , worsening of abdominal pain , bladder spasm (4) S/P ureteral stent placement: Follows with Dr. Mann for prostate cancer treatment and completed radiation tx started on oral chemo agent Xtandi ( enzulatutamide ) on Lupron and Xgeva Q3M chemo meds continued pt has been having ongoing nausea /vomiting /loose stool possibly due to chemo meds stool C diff negative (5) HTN (hypertension): Continue verapamil (6) Asthma: Stable. Continue albuterol PRN, Breo Ellipta DVT Ppx: SQ lovenox Code status: DNR per discussion with patient PCP: ROQUE Wallace DISPOSITION : stable to be discharharged home today Total Time Total Time Spent Total Time Spent (In Minutes): approx 40 mins Total Time Includes: Examination of the Patient, Discharge Planning, Medication Reconciliation and Communication With Other Providers Discharge Plan Discharge Items Patient Disposition: Home - Self-Care Reason For Visit: COMPLICATED UTI IN SETTING OF STENT,PROSTATE CANCE Discharge Diagnosis: URINARY RETENTION-COMPLICATED UTI /BLADDER SPASM /PROSTATE CANCER S/P TURP Activity: Resume your previous activity Non-emergency contact: Primary Care Provider Call non-emergency contact if: you have any medication questions Follow-up/Referrals: Arnoldo Wallace PA-C [Primary Care Provider] - Diet: Regular Addtl Attending Provider Instructions: hospital follow up with Dr Wallace as per scheduled Urology follow up with Dr Kunz in 2-3 weeks, please call office to schedule appointment YOU CAN TAKE IMODIUM NEEDED FOR DIARRHEA /LOOSE STOOL PLEASE DRINK PLENTY OF WATER TO KEEP YOURSELF HYDRATED RETURN TO ER OR CALL YOU FAMILY PHYSICIAN WITH EVENT OF FEVER /WORSENING OF NAUSEA /VOMITING -FOR EVALUATION OF INFECTION ( URINARY TRACT /BLADDER INFECTION ) Pending Studies at Discharge: No Stand-Alone Forms: My [employer], Smoking Cessation Medications and DC Order Prescriptions: New belladonna alkaloids-opium 16.2-60 mg Suppository 60 mg DC QID PRN (Reason: bladder spasm) Qty: 90 RF: 0 cyclobenzaprine 10 mg tablet 10 mg PO TID PRN (Reason: bladder spasm) Qty: 90 RF: 0 nitrofurantoin monohyd/m-cryst 100 mg capsule 100 mg PO Q12H 5 Days Qty: 10 RF: 0 oxybutynin chloride [Ditropan XL] 5 mg tablet extended release 24hr 10 mg PO DAILY Qty: 60 RF: 0 ondansetron HCl [Zofran] 8 mg tablet 8 mg PO Q8H PRN (Reason: nausea and vomiting) 30 Days Qty: 90 RF: 3 loperamide [Imodium A-D] 2 mg capsule 2 mg PO Q8 PRN (Reason: loose stool) Qty: 30 RF: 3 Continued morphine 30 mg capsule, ER multiphase 24 hr 30 mg PO Q12H RF: 0 acetaminophen 325 mg Tablet 650 mg PO Q6H PRN (Reason: Pain) RF: 0 tramadol 50 mg tablet 50 mg PO Q6H PRN (Reason: Pain) RF: 0 Xtandi 40 mg Capsule 160 mg PO HS RF: 0 Breo Ellipta 200-25 mcg/dose blister with device 1 inh INHALATION DAILY RF: 0 vitamin E 1,000 unit Capsule 1,000 unit PO QAM RF: 0 Lupron Depot (3 month) 22.5 mg Syringe Kit 0 mg IM Q3M RF: 0 cholecalciferol (vitamin D3) [Vitamin D3] 25 mcg (1,000 unit) Capsule 1,000 unit PO QAM RF: 0 Xgeva 120 mg/1.7 mL (70 mg/mL) Solution 120 mg subcut Q3M RF: 0 phenazopyridine 100 mg Tablet 100 mg PO TID PRN (Reason: pain with urination ) Qty: 90 RF: 3 verapamil 180 mg tablet extended release 180 mg PO HS RF: 0 tamsulosin 0.4 mg capsule 0.4 mg PO BID RF: 0 albuterol sulfate 90 mcg/actuation Hfa Aerosol Inhaler 2 puff INHALATION QID PRN (Reason: Shortness Of Breath Or Wheezing) RF: 0 ondansetron 4 mg tablet,disintegrating 4 mg PO Q8H PRN (Reason: Nausea) RF: 0 Discontinued naproxen sodium 220 mg Capsule 220 mg PO BIDM PRN (Reason: Pain) RF: 0 Discharge Orders: Discharge Order (Routine); Ordered 04/27/19 Ordered By: Jessica Adams Admission Data Admit Date/Time: 04/22/19 19:31 Attending Provider: Jessica Adams Admit Provider: Shira Martinez Primary Care Provider: Arnoldo Wallace Other Providers: Vikram Vaughn ; Shira Martinez ; Janeth Kunz Other Interventions: Discharge Summary Assessment (RN) Last Done: 04/27/19 12:14
== END 2019-04-27 13:06 | disposition home or self-care (01) | DRG 690 ==
LOC: ED 13:17 → SUATTDRO 19:31 → 2N 19:31 → 4W 04-24 03:26